=== PATIENT | male | born 1940 | race Hispanic/Latino ===

== ENCOUNTER 2018-06-25 13:43 | Inpatient (IN) | payer OTHER ==
[~2018-06-25] VITALS: Ht 172.7 cm; Wt 53.7 kg
--- OUTSIDE RECORDS SUMMARY | 2018-06-25 13:46 | XMS REPORT | Clinical Summary ---
Author Author [facility] Organization [facility] Address Unknown Phone Unavailable Care Team Providers Care Sas Developer Analyst Name Role Phone Ernesto Veliz MD PCP Allergies Comments Active Allergy Reactions Severity Noted Date Elevates creatinine Lisinopril Other Medium 09/29/2017 Medications End Date Status Medication Sig Dispensed Refills Start Date Active alendronate (FOSAMAX) 35 Take 1 tablet 12 tablet 3 mg tabletIndications: once a week 5 Osteopenia on empty stomach with 8 oz of water and remain upright for 30 minutes. Active tiotropium (SPIRIVA WITH Inhale 1 90 capsule 3 HANDIHALER) 18 mcg capsule by 7 inhalation mouth daily. capsuleIndications: Other emphysema Active albuterol 90 Inhale 2 20.1 g 6 mcg/actuation Puffs by 7 inhalerIndications: mouth every 4 Pulmonary emphysema, hours as unspecified emphysema needed for type, Other emphysema Wheezing. Active tamsulosin (FLOMAX) 0.4 Take 1 90 capsule 3 mg extended release capsule by 8 capsuleIndications: mouth daily. Benign prostatic hyperplasia with nocturia Active dexlansoprazole Take 1 60 capsule 1 (DEXILANT) 30 mg delayed capsule by 8 release mouth daily capsuleIndications: HH For acid (hiatus hernia) reflux. Active cetirizine (ZYRTEC) 10 mg Take 1 tablet 90 tablet 2 tabletIndications: by mouth 8 Seasonal allergic daily rhinitis, unspecified trigger Active benzonatate (TESSALON Take 2 75 capsule 0 PERLES) 100 mg capsules by 8 capsuleIndications: Cough mouth 3 times daily as needed for Cough. Active amLODIPine (NORVASC) 2.5 Take 1 tablet 90 tablet 3 mg tabletIndications: by mouth 8 HTN, goal below 140/90 daily For hypertension. Active fluticasone-salmeterol Inhale 1 Puff 60 Each 16 (ADVAIR DISKUS) 250-50 by mouth 2 9 mcg/dose diskus times daily. inhalerIndications: Other emphysema, Pulmonary emphysema, unspecified emphysema type 10/29/2017 Discontinued cetirizine (ZYRTEC) 10 mg Take 1 tablet 90 tablet 0 tabletIndications: by mouth 5 Allergic rhinitis, cause daily unspecified 09/29/2017 Discontinued mometasone (NASONEX) 50 2 Sprays by 17 g 2 mcg/actuation nasal each nostril 5 sprayIndications: route daily Allergic rhinitis, cause egyptian. unspecified 01/26/2018 Discontinued sildenafil (REVATIO) 20 Take 1 tablet 10 tablet 0 mg tabletIndications: by mouth 3 6 Pulmonary emphysema, times daily. unspecified emphysema type, Other male erectile dysfunction 09/29/2017 Discontinued omeprazole (PRILOSEC) 20 Take 1 180 capsule 0 mg delayed release capsule by 6 capsuleIndications: mouth 2 times Hiatal hernia with GERD daily. 08/13/2017 Discontinued lisinopril (PRINIVIL) 5 Take 1 tablet 90 tablet 1 mg tabletIndications: by mouth 7 HTN, goal below 140/90 daily For hypertension. 08/28/2017 Discontinued codeine-guaiFENesin Take 5 mL by 120 mL 0 (CHERATUSSIN AC) 10-100 mouth 3 times 7 mg/5 mL syrupIndications: daily as Bronchitis needed for Cough. 03/21/2018 Discontinued fluticasone-salmeterol Inhale 1 Puff 60 Each 16 (ADVAIR DISKUS) 250-50 by mouth 2 7 mcg/dose diskus times daily. inhalerIndications: Other emphysema, Pulmonary emphysema, unspecified emphysema type 06/27/2017 LORazepam (ATIVAN) 0.5 mg Take 1 tablet 1 tablet 0 tabletIndications: by mouth once 8 Anxiety as needed for up to 1 dose for Anxiety (30 minutes before MRI). 08/28/2017 Discontinued lisinopril (PRINIVIL) 5 Take 1 tablet 90 tablet 0 mg tabletIndications: by mouth 8 HTN, goal below 140/90 daily For hypertension. 09/29/2017 Discontinued lisinopril (PRINIVIL) 5 Take 1 tablet 90 tablet 0 mg tabletIndications: by mouth 8 HTN, goal below 140/90 daily For hypertension. 09/04/2017 LORazepam (ATIVAN) 0.5 mg Take 1 tablet 1 tablet 0 tabletIndications: by mouth once 8 Claustrophobia as needed for up to 1 dose for Anxiety (30 minutes before MRI). 01/26/2018 Discontinued polyethylene glycol Add lukewarm 4000 mL 0 (GOLYTELY) 236-22.74-6.74 drinking 8 -5.86 gram oral water to the solutionIndications: fill billie (4 Anemia, unspecified type liters) and shake. Drink as directed by your doctor.. 11/16/2017 azithromycin (ZITHROMAX) Take 1 tablet 14 tablet 0 500 mg tabletIndications: by mouth 8 Chronic obstructive daily for 14 pulmonary disease with days. acute exacerbation, Cough, Lung infection 03/17/2018 finasteride (PROSCAR) 5 Take 1 tablet 90 tablet 3 mg tabletIndications: by mouth 8 Benign prostatic daily for 90 hyperplasia with nocturia days. Active Problems Problem Noted Date History of colonoscopy with polypectomy- jan 2018- needs rpt jan 2023 01/26/2018 Swelling of both upper extremities 05/24/2017 Anxiety 04/10/2017 Iron deficiency 04/10/2017 Palpitation 04/10/2017 Health care maintenance 02/09/2017 Coronary artery calcification seen on CAT scan 01/09/2017 Lung nodule - CT Lung 02/04/2016 Osteopenia 02/04/2016 Smokers' cough 12/26/2015 CKD (chronic kidney disease) 12/26/2015 Benign prostatic hyperplasia with lower urinary tract symptoms 12/17/2015 Gas 12/17/2015 High potassium 01/16/2015 History of tuberculosis- treated [id number] 6 months 12/19/2014 Pulmonary emphysema 01/20/2014 Benign prostate hyperplasia 01/20/2014 HTN, goal below 140/90 01/20/2014 Need Screening for abdominal aortic aneurysm 01/20/2014 Ex-smoker Creatinine elevation Anemia Vitamin D insufficiency HH (hiatus hernia) Reflux gastritis Coronary atherosclerosis Hyponatremia Rectal polyp Internal hemorrhoids Diverticulosis Encounters Care Team Description Date Type Specialty 04/02/2018 Travel Von Olson MD Other emphysema; Pulmonary emphysema, unspecified emphysema type 03/21/2018 Refill Pulmonology Ernesto Veliz MD Osteopenia, unspecified location 02/02/2018 Hospital Radiology Encounter Ernesto Veliz MD Diverticulosis of large intestine without hemorrhage (Primary Dx); Internal hemorrhoids; History of colonoscopy with polypectomy- jan 2018- needs rpt jan 2023 ; Osteopenia, unspecified location 01/26/2018 Office Visit Family Practice Jonna Moyer MD Veliz, Lorena, RN Need for influenza vaccination (Primary Dx) 01/08/2018 Nurse Only Lizy Gonsalves, OD Glaucoma suspect, bilateral (Primary Dx) 12/29/2017 Office Visit Ophthalmology Valentine Anderson NP Follow-up 12/21/2017 Telephone Gastroenterology Kenia Villanueva MD Benign prostatic hyperplasia with nocturia (Primary Dx) 12/14/2017 Office Visit Urology Kimmy Stevenson MD Flores, Karina 12/03/2017 Nurse Only Ophthalmology Jonna Moyer MD Pulmonary emphysema, unspecified emphysema type (Primary Dx); Benign prostatic hyperplasia with lower urinary tract symptoms, symptom details unspecified; HTN, goal below 140/90; Vitamin D insufficiency; Reflux gastritis; Iron deficiency; Coronary artery calcification seen on CAT scan; Health care maintenance 11/04/2017 Office Visit Family Jonna Dozier MD Coronary artery calcification seen on CAT scan 11/04/2017 Orders Only Family Practice Jonna Moyer MD Masciangelo, Thomas N, MD Chronic obstructive pulmonary disease with acute exacerbation (Primary Dx); Seasonal allergic rhinitis, unspecified trigger; Cough; Lung infection 10/29/2017 Office Visit Pulmonology Stacey Presley, TRANG Utilization Management 10/28/2017 Telephone Lziy Gonsalves, OD Glaucoma suspect, bilateral (Primary Dx) 10/06/2017 Office Visit Ophthalmology Jonna Moyer MD Chronic kidney disease, unspecified CKD stage (Primary Dx); HTN, goal below 140/90; Benign prostatic hyperplasia without lower urinary tract symptoms; Anemia, unspecified type; Skin lesion; HH (hiatus hernia) 09/29/2017 Office Visit Family Practice Jonna Moyer MD Skin lesion 09/29/2017 Orders Only Family Practice Kenia Villanueva MD Benign prostatic hyperplasia with nocturia (Primary Dx) 09/16/2017 Office Visit Urology Uvaldo Carbajal MD Shelton, George Jr., MD BPH with obstruction/lower urinary tract symptoms (Primary Dx); HTN, goal below 140/90; Claustrophobia; Pulmonary emphysema, unspecified emphysema type 08/28/2017 Office Visit Family Practice Jonna Moyer MD HTN, goal below 140/90 08/13/2017 Refill Family Practice Lizy Gonsalves, OD 07/24/2017 Office Visit Ophthalmology after 06/24/2017 Immunizations Name Dates Previously Given Next Due Albuterol 0.83% 3ml 01/04/2015 Inhalant Herpes Zoster Vaccine In 06/28/2014 Clinic Influenza A (H1N1) Vac 01/18/2013 Injection Influenza Vaccine 12/17/2015, 12/19/2014, 01/20/2014 Influenza Vaccine, 01/09/2017 Seasonal, Injectable Influenza, 01/08/2018 Vaccine<FLUCELVAX>(Multi- Dose) PCV 13 (Pnuemococcal 01/09/2017 Conjugated 13 Valent) Pneumoccoccal 05/24/2014 Tdap Tetanus, diphtheria, 07/22/2012 acellular pertussis Vaccine Family History Medical History Relation Name Comments Hypertension Mother Relation Name Status Comments Father Mother Social History Date Tobacco Use Types Packs/Day Years Used Quit: 01/21/2012 Former Smoker Cigarettes 1 52 Smokeless Tobacco: Never Used Tobacco Cessation: Counseling Given: No Comments: hx 1 pack daily for 52yrs, quit 2012 Alcohol Use Drinks/Week oz/Week Comments Yes social - occasionall Sex Assigned at Date Recorded Not on file Industry Job Start Date Occupation Not on file Not on file Not on file Travel End Travel History Travel Start No recent travel history available. Last Filed Vital Signs Time Taken Vital Sign Reading 01/26/2018 7:55 AM [employer] Blood Pressure 131/65 01/26/2018 7:55 AM [employer]/CUSTODIAN Pulse 81 01/26/2018 7:55 AM [employer]/CUSTODIAN Temperature 36.6 C (97.9 F) 01/26/2018 7:55 AM [employer]/CUSTODIAN Respiratory Rate 18 - Oxygen Saturation - - Inhaled Oxygen - Concentration 01/26/2018 7:55 AM [employer]IVER/CUSTODIAN Weight 58.5 kg (129 lb) 01/26/2018 7:55 AM [employer]CHO[employer]/CUSTODIAN Height 175.3 cm (5' 9") 01/26/2018 7:55 AM S[employer]/CUSTODIAN Body Mass Index 19.05 Plan of Treatment Care Team Description Date Type Specialty Lizy Gonsalves, OD [address] [place] [address] vf results 07/12/2018 Office Visit Ophthalmology Health Maintenance Due Date Last Done Comments CORONARY ARTERY DISEASE 11/18/2018 11/18/2017, 05/21/2017, 12/27/2015, AGE 18 AND UP Additional history exists IMM Pneumococcal Age 67 Completed 05/24/2014 and Up Goals Goal Patient Associated Recent Progress Patient-Stat Author Goal Type Problems ed? 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 COLONOSCOPY-DIRECT Routine 01/18/2018 Anemia, unspecified type SCHEDULING URINE CULTURE Routine 11/18/2017 HTN, goal below 140/90 9:10 AM CDT Health care maintenance HEMOGLOBIN A1C Routine 11/18/2017 HTN, goal below 140/90 9:09 AM CDT Health care maintenance CBC/DIFF Routine 11/18/2017 HTN, goal below 140/90 9:09 AM CDT Iron deficiency Health care maintenance BASIC METABOLIC PANEL Routine 11/18/2017 HTN, goal below 140/90 9:09 AM CDT Health care maintenance LIPID PROFILE Routine 11/18/2017 HTN, goal below 140/90 9:09 AM CDT Health care maintenance LIVER PROFILE Routine 11/18/2017 HTN, goal below 140/90 9:09 AM CDT Health care maintenance TSH Routine 11/18/2017 HTN, goal below 140/90 9:09 AM CDT Health care maintenance UA CHEMISTRIES Routine 11/18/2017 HTN, goal below 140/90 9:09 AM CDT Health care maintenance PSA Routine 11/18/2017 Benign prostatic 9:09 AM CDT hyperplasia with lower urinary tract symptoms, symptom details unspecified HTN, goal below 140/90 Health care maintenance BMP POC Routine 09/29/2017 10:41 AM CDT BASIC METABOLIC PANEL Routine 09/03/2017 HTN, goal below 140/90 12:29 PM CDT CBC/DIFF Routine 09/03/2017 HTN, goal below 140/90 12:29 PM CDT after 06/24/2017 Results * BONE DENSITY (DUAL PHOTON) (02/02/2018 9:30 AM SCHOOL BUS DRIVER/CUSTODIAN) Impressions Performed At IMPRESSION: SMS Osteopenia of L1 and L2, left femoral neck, and left total hip. No significant interval change since 2014. Dictated By: Osmany Quach MD, 02/02/2018 9:46 AM I have reviewed the study and agree with the findings in this report. Signed By: Martinez Graham MD, 02/02/2018 12:30 PM Narrative Performed At EXAM: DEXA SMS INDICATION: Osteopenia for followup. COMPARISON: DEXA on 11/17/2014. TECHNIQUE: The patient underwent bone mineral densitometry using [employer] Discovery SL dual energy x-ray absorptiometry (DEXA).T-score is to compare the female peak bone mineral density (BMD). WHO definition of osteoporosis is T<-2.5 and osteopenia is T <-1.0. FINDINGS: Region..............BMD.......T score....%Change Spine L1-4....... 1.015 ....... -0.7 ....... 13.5% Left Femoral Neck..... 0.736 ........ -1.4 .....n/a Total Hip.......... 0.855 ....... -1.2 ....... -0.6% Please note the apparent increase in bone mineral density in the lumbar spine may be related to sclerotic degenerative changes which have increased in the interval. Procedure Note Interface, Rad/Mammog In - 02/02/2018 12:35 PM SCHOOL [employer]IVER/CUSTODIAN EXAM: DEXA INDICATION: Osteopenia for followup. COMPARISON: DEXA on 11/17/2014. TECHNIQUE: The patient underwent bone mineral densitometry using [employer] Discovery SL dual energy x-ray absorptiometry (DEXA). T-score is to compare the female peak bone mineral density (BMD). WHO definition of osteoporosis is T<-2.5 and osteopenia is T <-1.0. FINDINGS: Region..............BMD.......T score....%Change Spine L1-4....... 1.015 ....... -0.7 ....... 13.5% Left Femoral Neck..... 0.736 ........ -1.4 .....n/a Total Hip.......... 0.855 ....... -1.2 ....... -0.6% Please note the apparent increase in bone mineral density in the lumbar spine may be related to sclerotic degenerative changes which have increased in the interval. IMPRESSION IMPRESSION: Osteopenia of L1 and L2, left femoral neck, and left total hip. No significant interval change since 2014. Dictated By: Osmany Quach MD, 02/02/2018 9:46 AM I have reviewed the study and agree with the findings in this report. Signed By: Martinez Graham MD, 02/02/2018 12:30 PM Performing Organization Address City/State/Zipcode Phone Number SMS * COLONOSCOPY-DIRECT SCHEDULING (01/18/2018) Narrative Performed At Performing Organization Address City/State/Zipcode Phone Number ENDOSOFT * URINE CULTURE (11/18/2017 9:10 AM CDT) Spec Urine [facility] Description Order Comments None [facility] Culture No growth 2 days BT MICROBIOLOGY Report Status Final 11/20/2017 BT MICROBIOLOGY Specimen Urine - URINE Performing Organization Address [facility] Phone Number [facility] BT MICROBIOLOGY * HEMOGLOBIN A1C (11/18/2017 9:09 AM CDT) Hemoglobin A1c 5.7 4.3 - 6.1 % BT DIAGNOSTIC IMMUNOLOGY Est Average 116.9 mg/dL BT DIAGNOSTIC Gluc IMMUNOLOGY Specimen Blood Performing Organization Address [facility] Phone Number MISYS BT DIAGNOSTIC IMMUNOLOGY * TSH (11/18/2017 9:09 AM CDT) TSH 3.15 0.57 - 3.74 uIU/mL BT MAIN-STATION 1 Specimen Blood Performing Organization Address [facility] Phone Number MISYS BT MAIN-STATION 1 * PSA (11/18/2017 9:09 AM CDT) PSA 3.63 <4.1 ng/mL BT MAIN-STATION 1 Specimen Blood Performing Organization Address [facility] Phone Number MISYS BT MAIN-STATION 1 * UA CHEMISTRIES (11/18/2017 9:09 AM CDT) Color Yellow BT MAIN-STATION 3 Clarity Clear BT MAIN-STATION 3 Spec [place] 1.013 1.001 - 1.035 BT MAIN-STATION 3 pH 7.0 5 - 8 BT MAIN-STATION 3 Protein Negative NEG BT MAIN-STATION 3 Glucose Negative NEG BT MAIN-STATION 3 Ketone Negative NEG BT MAIN-STATION 3 Bilirubin Negative NEG BT MAIN-STATION 3 Nitrate Negative NEG BT MAIN-STATION 3 Urobilinogen <1.0 0.2 - 1.0 EU/dL BT MAIN-STATION 3 Leukocyte Negative NEG BT MAIN-STATION 3 Blood Negative NEG BT MAIN-STATION 3 Specimen Urine Performing Organization Address [facility] Phone Number MISYS BT MAIN-STATION 3 * LIVER PROFILE (11/18/2017 9:09 AM CDT) T Protein 6.8 6.0 - 8.3 g/dL BT MAIN-STATION 1 Albumin 4.5 4.2 - 5.5 g/dL BT MAIN-STATION 1 T Bilirubin 0.7 0.2 - 1.2 mg/dL BT MAIN-STATION 1 Alk Phos 58 34 - 104 U/L BT MAIN-STATION 1 AST 20 13 - 39 U/L BT MAIN-STATION 1 ALT 18 7 - 52 U/L BT MAIN-STATION 1 D Bilirubin 0.2 0.0 - 0.2 mg/dL BT MAIN-STATION 1 Specimen Blood Performing Organization Address [facility] Phone Number MISYS BT MAIN-STATION 1 * LIPID PROFILE (11/18/2017 9:09 AM CDT) Cholesterol 210 mg/dL BT MAIN-STATION Comment: 1 REFERENCE RANGE: Desirable: <200 mg/dL Borderline: 200-240 mg/dL High Risk: >240 mg/dL Triglyceride 69 <150 mg/dL BT MAIN-STATION Comment: 1 REFERENCE RANGE: Normal: <150 mg/dL Borderline High: 150-199 mg/dL High: 200-499 mg/dL Very High: >xr=508 mg/dL HDL 84 mg/dL BT MAIN-STATION Comment: 1 Increased CHD risk: <40 mg/dL Decreased CHD risk: >60 mg/dL LDL 112 mg/dL BT MAIN-STATION Comment: 1 REFERENCE RANGE: Optimal: <100 mg/dL Near Optimal: 100-129 mg/dL Borderline High: 130-159 mg/dL High: 160-189 mg/dL Very High: >ob=837 mg/dL Specimen Blood Performing Organization Address [facility] Phone Number MISYS BT MAIN-STATION 1 * CBC/DIFF (11/18/2017 9:09 AM CDT) Only the most recent of 2 results within the time period is included. WBC 4.0 (L) 4.5 - 12.0 K/uL BT MAIN-STATION 2 RBC 4.71 4.60 - 6.20 M/uL BT MAIN-STATION 2 Hemoglobin 15.0 14.0 - 18.0 g/dL BT MAIN-STATION 2 Hematocrit 44.7 40.0 - 54.0 % BT MAIN-STATION 2 MCV 95 (H) 82 - 92 fL BT MAIN-STATION 2 MCH 31.8 (H) 27.0 - 31.0 pg BT MAIN-STATION 2 MCHC 33.6 32.0 - 36.0 g/dL BT MAIN-STATION 2 RDW 46.3 (H) 35.1 - 43.9 fL BT MAIN-STATION 2 Platelet 197 150 - 400 K/uL BT MAIN-STATION 2 Mean Platelet 10.2 9.4 - 12.4 fL BT MAIN-STATION Volume 2 Percent NRBC 0.0 BT MAIN-STATION 2 Absolute NRBC 0.00 BT MAIN-STATION 2 Neutrophil 62.7 34.0 - 67.9 % BT MAIN-STATION 2 Lymphocyte 23.0 21.8 - 50.0 % BT MAIN-STATION 2 Monocyte 9.4 5.3 - 12.0 % BT MAIN-STATION 2 Eosinophil 3.5 0.8 - 5.0 % BT MAIN-STATION 2 Basophil 1.2 0.2 - 1.2 % BT MAIN-STATION 2 Pct Immat Gran 0.2 0.0 - 0.5 BT MAIN-STATION 2 Neutrophil, Abs 2.53 1.78 - 5.36 K/uL BT MAIN-STATION 2 Lymphocyte, Abs 0.93 (L) 1.32 - 3.57 K/uL BT MAIN-STATION 2 Monocyte, Abs 0.38 0.30 - 0.82 K/uL BT MAIN-STATION 2 Eosinophil, Abs 0.14 0.04 - 0.54 K/uL BT MAIN-STATION 2 Basophil, Abs 0.05 0.01 - 0.08 K/uL BT MAIN-STATION 2 Absol Immat 0.01 0.00 - 0.03 K/uL BT MAIN-STATION Gran 2 Specimen Blood Performing Organization Address [facility] Phone Number MISYS BT MAIN-STATION 2 * BASIC METABOLIC PANEL (11/18/2017 9:09 AM CDT) Only the most recent of 2 results within the time period is included. [facility] CO2 32 (H) 21 - 31 mmol/L BT MAIN-STATION 1 Chloride 97 (L) 98 - 107 mmol/L BT MAIN-STATION 1 Potassium 4.6 3.5 - 5.1 mmol/L BT MAIN-STATION 1 Sodium 136 136 - 145 mmol/L BT MAIN-STATION 1 Glucose 87 70 - 110 mg/dL BT MAIN-STATION 1 Urea Nitrogen 17 7 - 25 mg/dL BT MAIN-STATION 1 Creatinine 1.10 0.7 - 1.3 mg/dL BT MAIN-STATION 1 Anion Gap 7 BT MAIN-STATION 1 Calcium 9.9 8.6 - 10.3 mg/dL BT MAIN-STATION 1 GFR, Estimated >60 mL/min/1.73 m2 BT MAIN-STATION 1 GFR, Estim, >60 mL/min/1.73 m2 BT MAIN-STATION Afr-Am 1 Specimen Blood Performing Organization Address [facility] Phone Number [place] BT MAIN-STATION 1 * BMP POC (09/29/2017 10:41 AM CDT) TCO2 POC 28 21 - 32 mmol/L [facility] Chloride POC 97 (L) 98 - 107 mmol/L [facility] Potassium POC 4.1 3.50 - 5.10 mmol/L [facility] Sodium POC 134 (L) 136 - 145 mmol/L [facility] Glucose POC 77 74 - 106 mg/dL [facility] Urea Nitrogen 13 7 - 18 mg/dL [facility] POC Creatinine POC 0.9 0.6 - 1.3 mg/dL [facility] Ionized Calcium 1.27 1.15 - 1.29 mmol/L [facility] POC GFR, Estimated >60 mL/min/1.73 m2 [facility] GFR, Estim, >60 mL/min/1.73 m2 [facility] Afr-Am Performing Organization Address City/State/Zipcode Phone Number [facility] after 06/24/2017 Insurance Type Payer Benefit Subscriber ID Effective Phone Address Plan / Dates Group [facility] xxxxxxxxxxxx 2018-P [phone] [address] [facility] [place] [address] [facility] [place] [address] HC PLAN [facility] PLAN xxxxxxx 2018- [phone] [id number] [place] [address]
--- OUTSIDE RECORDS SUMMARY | 2018-06-25 13:48 | XMS REPORT ---
Author Author [facility] Address Unknown Phone Unavailable Care Team Providers Care Registered Account Administrator Name Role Phone Unavailable Unavailable Payers Payer Name Policy Type Policy Number Effective Date Expiration Date Problems This patient has no known problems. Allergies, Adverse Reactions, Alerts Allergy Name Allergy Type Status Severity Reaction(s) Onset Date Inactive Date Treating Clinician Comments No Known Allergies DA Active U 2018-05-28 00:00:00 No Known Allergies DA Active U 2017-12-30 00:00:00 Medications This patient has no known medications. Encounters Start Date/Time End Date/Time Encounter Type Admission Type Attending Clinicians Care Facility Care Department Encounter ID 2018-07-12 00:00:00 2018-07-12 00:00:00 Outpatient [facility] [id number] 2018-06-04 00:00:00 2018-06-04 00:00:00 Outpatient [facility] [id number] 2018-05-25 00:00:00 2018-05-25 00:00:00 Outpatient [facility] [id number] 2018-05-18 00:00:00 2018-05-18 00:00:00 Outpatient [facility] [id number] 2018-04-02 13:48:10 2018-04-02 13:48:10 Outpatient [facility] [id number] 2018-02-26 00:00:00 2018-02-26 00:00:00 Outpatient [facility] [id number] 2018-02-02 09:14:28 2018-02-02 09:14:28 Outpatient [facility] [id number] 2018-01-26 07:55:11 2018-01-26 07:55:11 Outpatient [facility] [id number] 2018-01-08 13:47:31 2018-01-08 13:47:31 Outpatient [facility] [id number] 2018-01-04 09:50:30 2018-01-04 09:50:30 Outpatient [facility] [id number] 2017-12-29 10:04:11 2017-12-29 10:04:11 Outpatient [facility] [id number] 2017-12-22 00:00:00 2017-12-22 00:00:00 Outpatient [facility] [id number] 2017-12-22 00:00:00 2017-12-22 00:00:00 Outpatient [facility] [id number] 2017-12-21 00:00:00 2017-12-21 00:00:00 Outpatient [facility] [id number] 2017-12-14 14:41:40 2017-12-14 14:41:40 Outpatient [facility] [id number] 2017-12-03 15:30:01 2017-12-03 15:30:01 Outpatient [facility] [id number] 2017-11-18 09:14:05 2017-11-18 09:14:05 Outpatient [facility] [id number] 2017-11-12 00:00:00 2017-11-12 00:00:00 Outpatient [facility] [id number] 2017-11-04 10:09:52 2017-11-04 10:09:52 Outpatient [facility] [id number] 2017-10-29 10:13:52 2017-10-29 10:13:52 Outpatient [facility] [id number] 2017-10-22 00:00:00 2017-10-22 00:00:00 Outpatient [facility] [id number] 2017-10-06 13:29:19 2017-10-06 13:29:19 Outpatient [facility] [id number] 2017-10-01 00:00:00 2017-10-01 00:00:00 Outpatient [facility] [id number] 2017-09-29 10:25:46 2017-09-29 10:25:46 Outpatient [facility] [id number] 2017-09-29 09:25:49 2017-09-29 09:25:49 Outpatient [facility] [id number] 2017-09-16 10:58:12 2017-09-16 10:58:12 Outpatient [facility] [id number] 2017-09-03 13:23:04 2017-09-03 13:23:04 Outpatient [facility] [id number] 2017-08-31 00:00:00 2017-08-31 00:00:00 Outpatient [facility] [id number] 2017-08-28 15:32:43 2017-08-28 15:32:43 Outpatient [facility] [id number] 2017-07-24 08:44:10 2017-07-24 08:44:10 Outpatient [facility] [id number] 2017-06-12 00:00:00 2017-06-12 00:00:00 Outpatient [facility] [id number] 2017-06-10 00:00:00 2017-06-10 00:00:00 Outpatient [facility] [id number] 2017-06-09 08:31:22 2017-06-09 08:31:22 Outpatient [facility] [id number] 2017-06-04 06:55:54 2017-06-04 06:55:54 Outpatient [facility] [id number] 2017-05-21 13:21:21 2017-05-21 13:21:21 Outpatient [facility] [id number] 2017-05-21 10:54:32 2017-05-21 10:54:32 Outpatient [facility] [id number] 2017-05-05 09:56:33 2017-05-05 09:56:33 Outpatient [facility] [id number] 2017-04-09 11:28:43 2017-04-09 11:28:43 Outpatient [facility] [id number] 2017-04-03 15:22:24 2017-04-03 15:22:24 Outpatient [facility] [id number] 10:09:34 2017 10:09:34 Outpatient [facility] [id number] 2017-03-05 10:23:48 2017-03-05 10:23:48 Outpatient [facility] [id number] 2017-02-17 14:10:42 2017-02-17 14:10:42 Outpatient [facility] [id number] 2017-02-17 14:00:51 2017-02-17 14:00:51 Outpatient [facility] [id number] 2017-02-17 12:40:00 2017-02-17 12:40:00 Outpatient [facility] [id number] 2017-02-12 14:19:52 2017-02-12 14:19:52 Outpatient [facility] [id number] 2017-02-10 10:02:22 2017-02-10 10:02:22 Outpatient [facility] [id number] 2017-02-09 13:46:52 2017-02-09 13:46:52 Outpatient [facility] [id number] 2017-01-20 13:54:37 2017-01-20 13:54:37 Outpatient [facility] [id number] 2017-01-16 17:09:31 2017-01-16 17:09:31 Outpatient [facility] [id number] 2017-01-12 00:00:00 2017-01-12 00:00:00 Outpatient [facility] [id number] 2017-01-09 15:54:58 2017-01-09 15:54:58 Outpatient [facility] [id number] 2017-01-09 14:37:09 2017-01-09 14:37:09 Outpatient [facility] [id number] 2017-01-06 00:00:00 2017-01-06 00:00:00 Outpatient [facility] [id number] 2017-01-06 00:00:00 2017-01-06 00:00:00 Outpatient [facility] [id number] 2016-12-08 12:49:01 2016-12-08 12:49:01 Outpatient [facility] [id number] Results Test Description Test Time Test Comments Text Results Atomic Results Result Comments BASIC METABOLIC PANEL 2018-06-04 12:06:00 SODIUM (test code=NA) 136 mmol/L 136-145 POTASSIUM (test code=K) 4.5 mmol/L 3.5-5.1 CHLORIDE (test code=CL) 96.0 mmol/L 98-107 CARBON DIOXIDE (test code=CO2) 36.0 mmol/L 21-32 ANION GAP (test code=GAP) 8.5 10-20 GLUCOSE (test code=GLU) 129 mg/dL 74-106 BLOOD UREA NITROGEN (test code=BUN) 35 mg/dL 7-18 GLOMERULAR FILTRATION RATE (test code=GFR) > 60 mL/min >=60 Estimated GFR by using Modified MDRD formula.Chronic kidney disease is defined as either kidney damageor GFR <60 mL/min/1.73 m2 for >3 months. CREATININE (test code=CREAT) 1.00 mg/dL 0.7-1.3 BUN/CREATININE RATIO (test code=BUN/CREA) 35.0 10-20 CALCIUM (test code=CA) 8.5 mg/dL 8.5-10.1 BASIC METABOLIC [id number] 12:02:00* Test Item Value Reference Range Comments SODIUM (test code=NA) 136 mmol/L 136-145 POTASSIUM (test code=K) 4.5 mmol/L 3.5-5.1 CHLORIDE (test code=CL) 96.0 mmol/L 98-107 CARBON DIOXIDE (test code=CO2) mmol/L 21-32 ANION GAP (test code=GAP) 10-20 GLUCOSE (test code=GLU) mg/dL 74-106 BLOOD UREA NITROGEN (test code=BUN) mg/dL 7-18 GLOMERULAR FILTRATION RATE (test code=GFR) mL/min >=60 CREATININE (test code=CREAT) mg/dL 0.7-1.3 BUN/CREATININE RATIO (test code=BUN/CREA) 10-20 CALCIUM (test code=CA) mg/dL 8.5-10.1 - XR ABDOMEN AP 1 [id number] 19:32:00 FAX: Zaria Dee MD [phone] [place]: St: [facility] FAX: Pelon Herrera MD [phone] Name: BRITT HUDSON [facility] : 1940 Age/S: 78/M [address] [facility] Unit #: [id number] Loc: V.2080 [place] [address] Phys: Zaria Dee MD Acct: [id number] Dis Date: Status: ADM IN PHONE #: [phone] Exam Date: 06/03/2018 183 FAX #: [phone] Reason: RULE OUT OBSTRUCTION EXAMS: CPT CODE: [id number] XR ABDOMEN AP 1 V 96736 HISTORY: RULE OUT OBSTRUCTION TECHNIQUE: AP abdomen x-ray COMPARISON: None FINDINGS: Interval improvement is seen in the gaseous distention of small and large bowel loops. No dilated bowel loops are seen. Large amount of st ool is again seen in the colon. No evidence of organomegaly or abn ormal calcifications. Degenerative changes are again seen in the s [place]. IMPRESSION: Nonobstructive bowel gas pattern. C onstipation. Interval improvement in the gaseous distention of small and large bowel loops. at 1932 Reported and signed by: Christa Fernandez M.D. CC: Zaria Dee MD; Pelon Lawrence MD Technologist: MOJGAN STOREY RT (R); ... Trnscrd Date/Time/By: 06/03/2018 (1931) : By: [email or web address] Orig Print D/T: S: 06/03/2018 (1935) PAGE 1 Signed Report - XR ABDOMEN AP 1 [id number] 11:32:00 FAX: Zaria Dee MD [phone] [place]: St: [facility] FAX: Y Pelon Lawrence MD [phone] Name: BRITT HUDSON [facility] : 1940 Age/S: 78/M [address] Unit #: [id number] Loc: [place] [address] Phys: Zaria Dee MD Acct: [id number] Dis Date: Status: ADM IN PHONE #: [phone] Exam Date: 06/03/2018 1057 FAX #: [phone] Reason: abd pain EXAMS: CPT CODE: [id number] XR ABDOMEN AP 1 V [id number] HISTORY: Abdominal pain. COMPARISON: CT scan from May 28, 2018. Single view abdomen. Moderate disten tion of the small bowel loops with mild distention of the large bowel loop s with large amount of stool suggesting ileus and constipation. No patholo gic calcifications. IMPRESSION: Moderate diffu se distention of the small bowel and mild distention of the large bowel suggestive of ileus. Constipation. at 1132 Reported and signed by: Fede Felix M.D. CC: Zaria Dee MD; Pelon Lawrence MD Technologist: BENITA MARROQUIN JR Trnscrd Date/Time/By: 06/03/2018 (1132) : By: [email or web address] Orig Print D/T: S: 06/03/2018 (5406) PAGE 1 Signed Report COMPREHENSIVE METABOLIC PANEL 2018-06-03 10:49:00* Test Item Value Reference Range Comments SODIUM (test code=NA) 132 mmol/L 136-145 POTASSIUM (test code=K) 3.4 mmol/L 3.5-5.1 CHLORIDE (test code=CL) 87.0 mmol/L 98-107 CARBON DIOXIDE (test code=CO2) 36.0 mmol/L 21-32 ANION GAP (test code=GAP) 12.4 10-20 GLUCOSE (test code=GLU) 224 mg/dL 74-106 BLOOD UREA NITROGEN (test code=BUN) 32 mg/dL 7-18 GLOMERULAR FILTRATION RATE (test code=GFR) > 60 mL/min >=60 Estimated GFR by using Modified MDRD formula.Chronic kidney disease is defined as either kidney damageor GFR <60 mL/min/1.73 m2 for >3 months. CREATININE (test code=CREAT) 1.10 mg/dL 0.7-1.3 BUN/CREATININE RATIO (test code=BUN/CREA) 29.1 10-20 TOTAL PROTEIN (test code=PROT) 6.7 gram/dL 6.4-8.2 ALBUMIN (test code=ALB) 3.7 g/dL 3.4-5.0 GLOBULIN (test code=GLOB) 3.0 gram/dL 2.7-4.2 ALBUMIN/GLOBULIN RATIO (test code=A/G) 1.2 0.75-1.50 CALCIUM (test code=CA) 9.0 mg/dL 8.5-10.1 BILIRUBIN TOTAL (test code=BILT) 1.10 mg/dL 0.0-1.0 SGOT/AST (test code=AST) 23 IUnit/L 15-37 SGPT/ALT (test code=ALT) 64 IUnit/L 12-78 ALKALINE PHOSPHATASE TOTAL (test code=ALKP) 90 IUnit/L 45-117 Note change in reference range due to change in reagent. COMPREHENSIVE METABOLIC [id number] 10:40:00* Test Item Value Reference Range Comments SODIUM (test code=NA) 132 mmol/L 136-145 POTASSIUM (test code=K) 3.4 mmol/L 3.5-5.1 CHLORIDE (test code=CL) 87.0 mmol/L 98-107 CARBON DIOXIDE (test code=CO2) mmol/L 21-32 ANION GAP (test code=GAP) 10-20 GLUCOSE (test code=GLU) mg/dL 74-106 BLOOD UREA NITROGEN (test code=BUN) mg/dL 7-18 GLOMERULAR FILTRATION RATE (test code=GFR) mL/min >=60 CREATININE (test code=CREAT) mg/dL 0.7-1.3 BUN/CREATININE RATIO (test code=BUN/CREA) 10-20 TOTAL PROTEIN (test code=PROT) gram/dL 6.4-8.2 ALBUMIN (test code=ALB) g/dL 3.4-5.0 GLOBULIN (test code=GLOB) gram/dL 2.7-4.2 ALBUMIN/GLOBULIN RATIO (test code=A/G) 0.75-1.50 CALCIUM (test code=CA) mg/dL 8.5-10.1 BILIRUBIN TOTAL (test code=BILT) mg/dL 0.0-1.0 SGOT/AST (test code=AST) IUnit/L 15-37 SGPT/ALT (test code=ALT) IUnit/L 12-78 ALKALINE PHOSPHATASE TOTAL (test code=ALKP) IUnit/L 45-117 CBC W/AUTO [id number] 10:00:00* Test Item Value Reference Range Comments WHITE BLOOD CELL (test code=WBC) 11.2 K/mm3 4.5-12.5 RED BLOOD CELL (test code=RBC) 3.72 mill/mm3 4.0-5.8 HEMOGLOBIN (test code=HGB) 11.0 gram/dL 13.0-17.5 HEMATOCRIT (test code=HCT) 34.8 % 42.0-52.0 MEAN CELL VOLUME (test code=MCV) 93.5 fL 80-98 MEAN CELL HGB (test code=MCH) 29.6 picogram 27.0-33.0 MEAN CELL HGB CONCETRATION (test code=MCHC) 31.6 gram/dL 33.0-36.0 RED CELL DISTRIBUTION WIDTH (test code=RDW) 13.2 % 11.6-16.2 RED CELL DISTRIBUTION WIDTH SD (test code=RDW-SD) 44.8 fL 37.0-51.0 PLATELET COUNT (test code=PLT) 217 K/mm3 150-450 MEAN PLATELET VOLUME (test code=MPV) 9.3 fL 6.7-11.0 NEUTROPHIL % (test code=NT%) 91.2 % 39.0-69.0 IMMATURE GRANULOCYTE % (test code=IG%) 0.5 % 0.0-5.0 LYMPHOCYTE % (test code=LY%) 3.8 % 25.0-55.0 MONOCYTE % (test code=MO%) 4.0 % 0.0-10.0 EOSINOPHIL % (test code=EO%) 0.4 % 0.0-5.0 BASOPHIL % (test code=BA%) 0.1 % 0.0-1.0 NUCLEATED RBC % (test code=NRBC%) 0.0 % 0-0 NEUTROPHIL # (test code=NT#) 10.20 K/mm3 1.8-7.7 IMMATURE GRANULOCYTE # (test code=IG#) 0.06 x10 3/uL 0-0.03 LYMPHOCYTE # (test code=LY#) 0.42 K/mm3 1.0-5.0 MONOCYTE # (test code=MO#) 0.45 K/mm3 0-0.8 EOSINOPHIL # (test code=EO#) 0.05 K/mm3 0.0-0.5 BASOPHIL # (test code=BA#) 0.01 K/mm3 0.0-0.2 NUCLEATED RBC # (test code=NRBC#) 0.00 K/mm3 0.0-0.1 MANUAL DIFF REQUIRED (test code=MDIFF) NO COMPREHENSIVE METABOLIC [id number] 07:40:00* Test Item Value Reference Range Comments SODIUM (test code=NA) 130 mmol/L 136-145 POTASSIUM (test code=K) 4.2 mmol/L 3.5-5.1 CHLORIDE (test code=CL) 95.0 mmol/L 98-107 CARBON DIOXIDE (test code=CO2) 31.0 mmol/L 21-32 ANION GAP (test code=GAP) 8.2 10-20 GLUCOSE (test code=GLU) 98 mg/dL 74-106 BLOOD UREA NITROGEN (test code=BUN) 29 mg/dL 7-18 GLOMERULAR FILTRATION RATE (test code=GFR) > 60 mL/min >=60 Estimated GFR by using Modified MDRD formula.Chronic kidney disease is defined as either kidney damageor GFR <60 mL/min/1.73 m2 for >3 months. CREATININE (test code=CREAT) 0.80 mg/dL 0.7-1.3 BUN/CREATININE RATIO (test code=BUN/CREA) 36.3 10-20 TOTAL PROTEIN (test code=PROT) 5.5 gram/dL 6.4-8.2 ALBUMIN (test code=ALB) 3.0 g/dL 3.4-5.0 GLOBULIN (test code=GLOB) 2.5 gram/dL 2.7-4.2 ALBUMIN/GLOBULIN RATIO (test code=A/G) 1.2 0.75-1.50 CALCIUM (test code=CA) 8.5 mg/dL 8.5-10.1 BILIRUBIN TOTAL (test code=BILT) 0.70 mg/dL 0.0-1.0 SGOT/AST (test code=AST) 20 IUnit/L 15-37 SGPT/ALT (test code=ALT) 57 IUnit/L 12-78 ALKALINE PHOSPHATASE TOTAL (test code=ALKP) 71 IUnit/L 45-117 Note change in reference range due to change in reagent. COMPREHENSIVE METABOLIC [id number] 07:32:00* Test Item Value Reference Range Comments SODIUM (test code=NA) 130 mmol/L 136-145 POTASSIUM (test code=K) 4.2 mmol/L 3.5-5.1 CHLORIDE (test code=CL) 95.0 mmol/L 98-107 CARBON DIOXIDE (test code=CO2) mmol/L 21-32 ANION GAP (test code=GAP) 10-20 GLUCOSE (test code=GLU) mg/dL 74-106 BLOOD UREA NITROGEN (test code=BUN) mg/dL 7-18 GLOMERULAR FILTRATION RATE (test code=GFR) mL/min >=60 CREATININE (test code=CREAT) mg/dL 0.7-1.3 BUN/CREATININE RATIO (test code=BUN/CREA) 10-20 TOTAL PROTEIN (test code=PROT) gram/dL 6.4-8.2 ALBUMIN (test code=ALB) g/dL 3.4-5.0 GLOBULIN (test code=GLOB) gram/dL 2.7-4.2 ALBUMIN/GLOBULIN RATIO (test code=A/G) 0.75-1.50 CALCIUM (test code=CA) mg/dL 8.5-10.1 BILIRUBIN TOTAL (test code=BILT) mg/dL 0.0-1.0 SGOT/AST (test code=AST) IUnit/L 15-37 SGPT/ALT (test code=ALT) IUnit/L 12-78 ALKALINE PHOSPHATASE TOTAL (test code=ALKP) IUnit/L 45-117 CBC W/AUTO [id number] 07:09:00* Test Item Value Reference Range Comments WHITE BLOOD CELL (test code=WBC) 8.5 K/mm3 4.5-12.5 RED BLOOD CELL (test code=RBC) 2.95 mill/mm3 4.0-5.8 HEMOGLOBIN (test code=HGB) 9.1 gram/dL 13.0-17.5 HEMATOCRIT (test code=HCT) 27.1 % 42.0-52.0 MEAN CELL VOLUME (test code=MCV) 91.9 fL 80-98 MEAN CELL HGB (test code=MCH) 30.8 picogram 27.0-33.0 MEAN CELL HGB CONCETRATION (test code=MCHC) 33.6 gram/dL 33.0-36.0 RED CELL DISTRIBUTION WIDTH (test code=RDW) 13.2 % 11.6-16.2 RED CELL DISTRIBUTION WIDTH SD (test code=RDW-SD) 43.5 fL 37.0-51.0 PLATELET COUNT (test code=PLT) 187 K/mm3 150-450 RESULT VERIFIED BY REPEAT ANALYSIS MEAN PLATELET VOLUME (test code=MPV) 9.2 fL 6.7-11.0 NEUTROPHIL % (test code=NT%) 88.3 % 39.0-69.0 IMMATURE GRANULOCYTE % (test code=IG%) 0.7 % 0.0-5.0 LYMPHOCYTE % (test code=LY%) 4.6 % 25.0-55.0 MONOCYTE % (test code=MO%) 6.3 % 0.0-10.0 EOSINOPHIL % (test code=EO%) 0.1 % 0.0-5.0 BASOPHIL % (test code=BA%) 0.0 % 0.0-1.0 NUCLEATED RBC % (test code=NRBC%) 0.0 % 0-0 NEUTROPHIL # (test code=NT#) 7.48 K/mm3 1.8-7.7 IMMATURE GRANULOCYTE # (test code=IG#) 0.06 x10 3/uL 0-0.03 LYMPHOCYTE # (test code=LY#) 0.39 K/mm3 1.0-5.0 MONOCYTE # (test code=MO#) 0.53 K/mm3 0-0.8 EOSINOPHIL # (test code=EO#) 0.01 K/mm3 0.0-0.5 BASOPHIL # (test code=BA#) 0.00 K/mm3 0.0-0.2 NUCLEATED RBC # (test code=NRBC#) 0.00 K/mm3 0.0-0.1 MANUAL DIFF REQUIRED (test code=MDIFF) NO [id number] 17:53:00* Test Item Value Reference Range Comments SODIUM (test code=NA) 128 mmol/L 136-145 COMPREHENSIVE METABOLIC [id number] 06:40:00* Test Item Value Reference Range Comments SODIUM (test code=NA) 128 mmol/L 136-145 POTASSIUM (test code=K) 4.1 mmol/L 3.5-5.1 CHLORIDE (test code=CL) 90.0 mmol/L 98-107 CARBON DIOXIDE (test code=CO2) 30.0 mmol/L 21-32 ANION GAP (test code=GAP) 12.1 10-20 GLUCOSE (test code=GLU) 166 mg/dL 74-106 BLOOD UREA NITROGEN (test code=BUN) 28 mg/dL 7-18 RESULT VERIFIED BY REPEAT ANALYSIS GLOMERULAR FILTRATION RATE (test code=GFR) > 60 mL/min >=60 Estimated GFR by using Modified MDRD formula.Chronic kidney disease is defined as either kidney damageor GFR <60 mL/min/1.73 m2 for >3 months. CREATININE (test code=CREAT) 0.90 mg/dL 0.7-1.3 BUN/CREATININE RATIO (test code=BUN/CREA) 31.1 10-20 TOTAL PROTEIN (test code=PROT) 5.9 gram/dL 6.4-8.2 ALBUMIN (test code=ALB) 3.1 g/dL 3.4-5.0 GLOBULIN (test code=GLOB) 2.8 gram/dL 2.7-4.2 ALBUMIN/GLOBULIN RATIO (test code=A/G) 1.1 0.75-1.50 CALCIUM (test code=CA) 8.6 mg/dL 8.5-10.1 BILIRUBIN TOTAL (test code=BILT) 0.90 mg/dL 0.0-1.0 SGOT/AST (test code=AST) 26 IUnit/L 15-37 SGPT/ALT (test code=ALT) 67 IUnit/L 12-78 ALKALINE PHOSPHATASE TOTAL (test code=ALKP) 81 IUnit/L 45-117 Note change in reference range due to change in reagent. COMPREHENSIVE METABOLIC [id number] 06:21:00* Test Item Value Reference Range Comments SODIUM (test code=NA) 128 mmol/L 136-145 POTASSIUM (test code=K) 4.1 mmol/L 3.5-5.1 CHLORIDE (test code=CL) 90.0 mmol/L 98-107 CARBON DIOXIDE (test code=CO2) mmol/L 21-32 ANION GAP (test code=GAP) 10-20 GLUCOSE (test code=GLU) mg/dL 74-106 BLOOD UREA NITROGEN (test code=BUN) mg/dL 7-18 GLOMERULAR FILTRATION RATE (test code=GFR) mL/min >=60 CREATININE (test code=CREAT) mg/dL 0.7-1.3 BUN/CREATININE RATIO (test code=BUN/CREA) 10-20 TOTAL PROTEIN (test code=PROT) gram/dL 6.4-8.2 ALBUMIN (test code=ALB) g/dL 3.4-5.0 GLOBULIN (test code=GLOB) gram/dL 2.7-4.2 ALBUMIN/GLOBULIN RATIO (test code=A/G) 0.75-1.50 CALCIUM (test code=CA) mg/dL 8.5-10.1 BILIRUBIN TOTAL (test code=BILT) mg/dL 0.0-1.0 SGOT/AST (test code=AST) IUnit/L 15-37 SGPT/ALT (test code=ALT) IUnit/L 12-78 ALKALINE PHOSPHATASE TOTAL (test code=ALKP) IUnit/L 45-117 CBC W/AUTO [id number] 05:52:00* Test Item Value Reference Range Comments WHITE BLOOD CELL (test code=WBC) 9.7 K/mm3 4.5-12.5 RED BLOOD CELL (test code=RBC) 3.26 mill/mm3 4.0-5.8 HEMOGLOBIN (test code=HGB) 9.7 gram/dL 13.0-17.5 HEMATOCRIT (test code=HCT) 30.5 % 42.0-52.0 MEAN CELL VOLUME (test code=MCV) 93.6 fL 80-98 RESULT VERIFIED BY REPEAT ANALYSIS MEAN CELL HGB (test code=MCH) 29.8 picogram 27.0-33.0 MEAN CELL HGB CONCETRATION (test code=MCHC) 31.8 gram/dL 33.0-36.0 RED CELL DISTRIBUTION WIDTH (test code=RDW) 13.1 % 11.6-16.2 RED CELL DISTRIBUTION WIDTH SD (test code=RDW-SD) 44.0 fL 37.0-51.0 PLATELET COUNT (test code=PLT) 240 K/mm3 150-450 MEAN PLATELET VOLUME (test code=MPV) 9.6 fL 6.7-11.0 NEUTROPHIL % (test code=NT%) 93.7 % 39.0-69.0 IMMATURE GRANULOCYTE % (test code=IG%) 0.5 % 0.0-5.0 LYMPHOCYTE % (test code=LY%) 1.7 % 25.0-55.0 MONOCYTE % (test code=MO%) 4.1 % 0.0-10.0 EOSINOPHIL % (test code=EO%) 0.0 % 0.0-5.0 BASOPHIL % (test code=BA%) 0.0 % 0.0-1.0 NUCLEATED RBC % (test code=NRBC%) 0.0 % 0-0 NEUTROPHIL # (test code=NT#) 9.11 K/mm3 1.8-7.7 IMMATURE GRANULOCYTE # (test code=IG#) 0.05 x10 3/uL 0-0.03 LYMPHOCYTE # (test code=LY#) 0.17 K/mm3 1.0-5.0 MONOCYTE # (test code=MO#) 0.40 K/mm3 0-0.8 EOSINOPHIL # (test code=EO#) 0.00 K/mm3 0.0-0.5 BASOPHIL # (test code=BA#) 0.00 K/mm3 0.0-0.2 NUCLEATED RBC # (test code=NRBC#) 0.00 K/mm3 0.0-0.1 - XR CHEST 1 [id number] 21:53:00 FAX: Zaria Dee MD [phone] [place]: [address]: ADM FAX: Pelon Herrera MD [phone] Name: BRITT HUDSNO [facility] : 1940 Age/S: 78/M [address] [facility] Unit #: [id number] Loc: [id number] [place] [address] Phys: Zaria Dee MD Acct: [id number] Dis Date: Status: ADM IN PHONE #: [phone] Exam Date: 05/31/20181958 FAX #: [phone] Reason: SOB EXAMS: CPT CODE: [id number] XR CHEST 1 V [id number] REASON FOR EXAM: SOB Exam Order Date: 05/31/2018 12:00 AM Ordering M.DReji: Zaria Dee MD PROCEDURE: - XR CHEST 1 V COMPARISON: AP chest x-ray May 28, 2018 FINDINGS: The lungs are hyperinflated which may represent an air-trapping process. There are also calcified granulomas in the left upper lung. No airspace consolidation or radiopaque mass. There is subsegmental atelectasis in the left lung base. There is no pleural effusion or pneumothorax. Pulmonary vascularity is within normal limits. C ardiomediastinal silhouette is normal in size for technique. The mediastin al contours are within normal limits. Musculoskeletal structures a re within normal limits. The visualized upper abdomen is within no rmal limits. IMPRESSION: No acute cardiopulmonary proces s or significant change from the previous chest x-ray. Elect ronically Signed by Humberto Ibrahim MD on 05/31/2018 at 2153 Reported and signed by: Humberto Ibrahim MD CC: Zaria Dee MD; Nicholas Lawrence MD Technologist: KOLTON FLOWERS; Ramone Morales De La R josefina, RT(R Trnscrd Date/Time/By: 05/31/2018 (2152) : By: [email or web address] Orig Print D/T: S: 05/31/2018 (2155) PAGE 1 Signed Report [id number] 15:39:00* Test Item Value Reference Range Comments SODIUM (test code=NA) 127 mmol/L 136-145 UR NA,[id number] 12:31:00* Test Item Value Reference Range Comments UR NA,RANDOM (test code=MISAEL) 29 mmol/L 20-110 UR CREATININE [id number] 12:31:00* Test Item Value Reference Range Comments UR CREATININE RANDOM (test code=CREATU) 38.0 mg/dL 30-125 UR OSMOLALITY [id number] 12:31:00* Test Item Value Reference Range Comments UR OSMOLALITY RANDOM (test code=OSMOU) 317.5 mOsm/kg 48-962 URINE K, [id number] 11:35:00* Test Item Value Reference Range Comments URINE K, RANDOM (test code=KU) 20.0 mmol/L 12-75 UR NA,[id number] 11:13:00* Test Item Value Reference Range Comments UR NA,RANDOM (test code=MISAEL) 29 mmol/L 20-110 UR CREATININE [id number] 11:13:00* Test Item Value Reference Range Comments UR CREATININE RANDOM (test code=CREATU) 38.0 mg/dL 30-125 UR OSMOLALITY [id number] 11:13:00* Test Item Value Reference Range Comments UR OSMOLALITY RANDOM (test code=OSMOU) mOsm/kg 48-962 COMPREHENSIVE METABOLIC [id number] 06:28:00* Test Item Value Reference Range Comments SODIUM (test code=NA) 129 mmol/L 136-145 POTASSIUM (test code=K) 4.3 mmol/L 3.5-5.1 CHLORIDE (test code=CL) 93.0 mmol/L 98-107 CARBON DIOXIDE (test code=CO2) 29.0 mmol/L 21-32 ANION GAP (test code=GAP) 11.3 10-20 GLUCOSE (test code=GLU) 128 mg/dL 74-106 BLOOD UREA NITROGEN (test code=BUN) 23 mg/dL 7-18 RESULT VERIFIED BY REPEAT ANALYSIS GLOMERULAR FILTRATION RATE (test code=GFR) > 60 mL/min >=60 Estimated GFR by using Modified MDRD formula.Chronic kidney disease is defined as either kidney damageor GFR <60 mL/min/1.73 m2 for >3 months. CREATININE (test code=CREAT) 0.80 mg/dL 0.7-1.3 BUN/CREATININE RATIO (test code=BUN/CREA) 28.8 10-20 TOTAL PROTEIN (test code=PROT) 5.9 gram/dL 6.4-8.2 ALBUMIN (test code=ALB) 3.3 g/dL 3.4-5.0 GLOBULIN (test code=GLOB) 2.6 gram/dL 2.7-4.2 ALBUMIN/GLOBULIN RATIO (test code=A/G) 1.3 0.75-1.50 CALCIUM (test code=CA) 8.9 mg/dL 8.5-10.1 BILIRUBIN TOTAL (test code=BILT) 0.80 mg/dL 0.0-1.0 SGOT/AST (test code=AST) 38 IUnit/L 15-37 SGPT/ALT (test code=ALT) 82 IUnit/L 12-78 ALKALINE PHOSPHATASE TOTAL (test code=ALKP) 84 IUnit/L 45-117 Note change in reference range due to change in reagent. CBC W/AUTO [id number] 06:10:00* Test Item Value Reference Range Comments WHITE BLOOD CELL (test code=WBC) 10.0 K/mm3 4.5-12.5 RED BLOOD CELL (test code=RBC) 3.22 mill/mm3 4.0-5.8 HEMOGLOBIN (test code=HGB) 9.8 gram/dL 13.0-17.5 HEMATOCRIT (test code=HCT) 28.7 % 42.0-52.0 MEAN CELL VOLUME (test code=MCV) 89.1 fL 80-98 MEAN CELL HGB (test code=MCH) 30.4 picogram 27.0-33.0 MEAN CELL HGB CONCETRATION (test code=MCHC) 34.1 gram/dL 33.0-36.0 RED CELL DISTRIBUTION WIDTH (test code=RDW) 12.7 % 11.6-16.2 RED CELL DISTRIBUTION WIDTH SD (test code=RDW-SD) 41.3 fL 37.0-51.0 PLATELET COUNT (test code=PLT) 256 K/mm3 150-450 MEAN PLATELET VOLUME (test code=MPV) 9.6 fL 6.7-11.0 NEUTROPHIL % (test code=NT%) 93.8 % 39.0-69.0 IMMATURE GRANULOCYTE % (test code=IG%) 0.7 % 0.0-5.0 LYMPHOCYTE % (test code=LY%) 1.4 % 25.0-55.0 MONOCYTE % (test code=MO%) 4.0 % 0.0-10.0 EOSINOPHIL % (test code=EO%) 0.0 % 0.0-5.0 BASOPHIL % (test code=BA%) 0.1 % 0.0-1.0 NUCLEATED RBC % (test code=NRBC%) 0.0 % 0-0 NEUTROPHIL # (test code=NT#) 9.36 K/mm3 1.8-7.7 IMMATURE GRANULOCYTE # (test code=IG#) 0.07 x10 3/uL 0-0.03 LYMPHOCYTE # (test code=LY#) 0.14 K/mm3 1.0-5.0 MONOCYTE # (test code=MO#) 0.40 K/mm3 0-0.8 EOSINOPHIL # (test code=EO#) 0.00 K/mm3 0.0-0.5 BASOPHIL # (test code=BA#) 0.01 K/mm3 0.0-0.2 NUCLEATED RBC # (test code=NRBC#) 0.00 K/mm3 0.0-0.1 [id number] 22:03:00* Test Item Value Reference Range Comments SODIUM (test code=NA) 126 mmol/L 136-145 [id number] 16:54:00* Test Item Value Reference Range Comments SODIUM (test code=NA) 126 mmol/L 136-145 [id number] 09:28:00* Test Item Value Reference Range Comments SODIUM (test code=NA) 125 mmol/L 136-145 COMPREHENSIVE METABOLIC [id number] 06:34:00* Test Item Value Reference Range Comments SODIUM (test code=NA) mmol/L 136-145 POTASSIUM (test code=K) mmol/L 3.5-5.1 CHLORIDE (test code=CL) mmol/L 98-107 CARBON DIOXIDE (test code=CO2) 29.0 mmol/L 21-32 ANION GAP (test code=GAP) 10-20 GLUCOSE (test code=GLU) 129 mg/dL 74-106 BLOOD UREA NITROGEN (test code=BUN) 19 mg/dL 7-18 GLOMERULAR FILTRATION RATE (test code=GFR) > 60 mL/min >=60 Estimated GFR by using Modified MDRD formula.Chronic kidney disease is defined as either kidney damageor GFR <60 mL/min/1.73 m2 for >3 months. CREATININE (test code=CREAT) 0.70 mg/dL 0.7-1.3 BUN/CREATININE RATIO (test code=BUN/CREA) 27.1 10-20 TOTAL PROTEIN (test code=PROT) 6.1 gram/dL 6.4-8.2 ALBUMIN (test code=ALB) 3.6 g/dL 3.4-5.0 GLOBULIN (test code=GLOB) 2.5 gram/dL 2.7-4.2 ALBUMIN/GLOBULIN RATIO (test code=A/G) 1.4 0.75-1.50 CALCIUM (test code=CA) 9.1 mg/dL 8.5-10.1 BILIRUBIN TOTAL (test code=BILT) 0.90 mg/dL 0.0-1.0 SGOT/AST (test code=AST) 52 IUnit/L 15-37 SGPT/ALT (test code=ALT) 99 IUnit/L 12-78 ALKALINE PHOSPHATASE TOTAL (test code=ALKP) 97 IUnit/L 45-117 Note change in reference range due to change in reagent. COMPREHENSIVE METABOLIC [id number] 06:34:00* Test Item Value Reference Range Comments SODIUM (test code=NA) 124 mmol/L 136-145 Results called to [id number] by V.LAB.AG1 05/30/18 0632Critical results verified and read back by Nurse? Y POTASSIUM (test code=K) 4.5 mmol/L 3.5-5.1 CHLORIDE (test code=CL) 87.0 mmol/L 98-107 CARBON DIOXIDE (test code=CO2) 29.0 mmol/L 21-32 ANION GAP (test code=GAP) 12.5 10-20 GLUCOSE (test code=GLU) 129 mg/dL 74-106 BLOOD UREA NITROGEN (test code=BUN) 19 mg/dL 7-18 GLOMERULAR FILTRATION RATE (test code=GFR) > 60 mL/min >=60 Estimated GFR by using Modified MDRD formula.Chronic kidney disease is defined as either kidney damageor GFR <60 mL/min/1.73 m2 for >3 months. CREATININE (test code=CREAT) 0.70 mg/dL 0.7-1.3 BUN/CREATININE RATIO (test code=BUN/CREA) 27.1 10-20 TOTAL PROTEIN (test code=PROT) 6.1 gram/dL 6.4-8.2 ALBUMIN (test code=ALB) 3.6 g/dL 3.4-5.0 GLOBULIN (test code=GLOB) 2.5 gram/dL 2.7-4.2 ALBUMIN/GLOBULIN RATIO (test code=A/G) 1.4 0.75-1.50 CALCIUM (test code=CA) 9.1 mg/dL 8.5-10.1 BILIRUBIN TOTAL (test code=BILT) 0.90 mg/dL 0.0-1.0 SGOT/AST (test code=AST) 52 IUnit/L 15-37 SGPT/ALT (test code=ALT) 99 IUnit/L 12-78 ALKALINE PHOSPHATASE TOTAL (test code=ALKP) 97 IUnit/L 45-117 Note change in reference range due to change in reagent. [id number] 03:29:00* Test Item Value Reference Range Comments SODIUM (test code=NA) 122 mmol/L 136-145 Results called to [id number] by V.LAB.AG1 05/30/18 0328Critical results verified and read back by Nurse? Y SPECIMEN COMMENTS: PLEASE DRAW FROM RIGHT ARM PER MDCOMMENTS TO BONE DRIER OPERATOR: PLEASE DRAW FROM RIGHT ARM PER [id number] 01:34:00* Test Item Value Reference Range Comments SODIUM (test code=NA) 111 mmol/L 136-145 Results called to [id number] by V.LAB.AG1 05/30/18 0134Critical results verified and read back by Nurse? Y CBC W/AUTO [id number] 01:04:00* Test Item Value Reference Range Comments WHITE BLOOD CELL (test code=WBC) 9.8 K/mm3 4.5-12.5 RED BLOOD CELL (test code=RBC) 2.79 mill/mm3 4.0-5.8 HEMOGLOBIN (test code=HGB) 8.4 gram/dL 13.0-17.5 HEMATOCRIT (test code=HCT) 25.1 % 42.0-52.0 MEAN CELL VOLUME (test code=MCV) 90.0 fL 80-98 MEAN CELL HGB (test code=MCH) 30.1 picogram 27.0-33.0 MEAN CELL HGB CONCETRATION (test code=MCHC) 33.5 gram/dL 33.0-36.0 RED CELL DISTRIBUTION WIDTH (test code=RDW) 12.2 % 11.6-16.2 RED CELL DISTRIBUTION WIDTH SD (test code=RDW-SD) 39.8 fL 37.0-51.0 PLATELET COUNT (test code=PLT) 233 K/mm3 150-450 MEAN PLATELET VOLUME (test code=MPV) 9.3 fL 6.7-11.0 NEUTROPHIL % (test code=NT%) 92.8 % 39.0-69.0 IMMATURE GRANULOCYTE % (test code=IG%) 0.7 % 0.0-5.0 LYMPHOCYTE % (test code=LY%) 1.1 % 25.0-55.0 MONOCYTE % (test code=MO%) 5.3 % 0.0-10.0 EOSINOPHIL % (test code=EO%) 0.0 % 0.0-5.0 BASOPHIL % (test code=BA%) 0.1 % 0.0-1.0 NUCLEATED RBC % (test code=NRBC%) 0.0 % 0-0 NEUTROPHIL # (test code=NT#) 9.06 K/mm3 1.8-7.7 IMMATURE GRANULOCYTE # (test code=IG#) 0.07 x10 3/uL 0-0.03 LYMPHOCYTE # (test code=LY#) 0.11 K/mm3 1.0-5.0 MONOCYTE # (test code=MO#) 0.52 K/mm3 0-0.8 EOSINOPHIL # (test code=EO#) 0.00 K/mm3 0.0-0.5 BASOPHIL # (test code=BA#) 0.01 K/mm3 0.0-0.2 NUCLEATED RBC # (test code=NRBC#) 0.00 K/mm3 0.0-0.1 [id number] 22:07:00* Test Item Value Reference Range Comments SODIUM (test code=NA) 120 mmol/L 136-145 Results called to [id number] by V.LAB.LT 05/29/18 2207Critical results verified and read back by Nurse? Y [id number] 17:19:00* Test Item Value Reference Range Comments SODIUM (test code=NA) 116 mmol/L 136-145 Results called to [id number] by V.LAB.LT 05/29/18 1719Critical results verified and read back by Nurse? Y [id number] 14:22:00* Test Item Value Reference Range Comments SODIUM (test code=NA) 117 mmol/L 136-145 Results called to [id number] by V.LAB.B 05/29/18 1418Critical results verified and read back by Nurse? Y BASIC METABOLIC [id number] 14:09:00* Test Item Value Reference Range Comments SODIUM (test code=NA) 117 mmol/L 136-145 Results called to [id number] by V.LAB.LDB 05/29/18 1407Critical results verified and read back by Nurse? Y POTASSIUM (test code=K) 4.4 mmol/L 3.5-5.1 CHLORIDE (test code=CL) 82.0 mmol/L 98-107 CARBON DIOXIDE (test code=CO2) 26.0 mmol/L 21-32 ANION GAP (test code=GAP) 13.4 10-20 GLUCOSE (test code=GLU) 132 mg/dL 74-106 BLOOD UREA NITROGEN (test code=BUN) 22 mg/dL 7-18 GLOMERULAR FILTRATION RATE (test code=GFR) > 60 mL/min >=60 Estimated GFR by using Modified MDRD formula.Chronic kidney disease is defined as either kidney damageor GFR <60 mL/min/1.73 m2 for >3 months. CREATININE (test code=CREAT) 1.00 mg/dL 0.7-1.3 BUN/CREATININE RATIO (test code=BUN/CREA) 22.0 10-20 CALCIUM (test code=CA) 8.3 mg/dL 8.5-10.1 [id number] 03:32:00* Test Item Value Reference Range Comments SODIUM (test code=NA) 118 mmol/L 136-145 Results called to [id number] by V.LAB.WALTER 05/29/18 0331Critical results verified and read back by Nurse? Y BASIC METABOLIC [id number] 03:24:00* Test Item Value Reference Range Comments SODIUM (test code=NA) 118 mmol/L 136-145 Results called to [id number] by V.LAB.WALTER 05/29/18 0322Critical results verified and read back by Nurse? Y POTASSIUM (test code=K) 5.1 mmol/L 3.5-5.1 CHLORIDE (test code=CL) 82.0 mmol/L 98-107 CARBON DIOXIDE (test code=CO2) 25.0 mmol/L 21-32 ANION GAP (test code=GAP) 16.1 10-20 GLUCOSE (test code=GLU) 132 mg/dL 74-106 BLOOD UREA NITROGEN (test code=BUN) 21 mg/dL 7-18 GLOMERULAR FILTRATION RATE (test code=GFR) > 60 mL/min >=60 Estimated GFR by using Modified MDRD formula.Chronic kidney disease is defined as either kidney damageor GFR <60 mL/min/1.73 m2 for >3 months. CREATININE (test code=CREAT) 0.80 mg/dL 0.7-1.3 BUN/CREATININE RATIO (test code=BUN/CREA) 26.3 10-20 CALCIUM (test code=CA) 8.4 mg/dL 8.5-10.1 CBC W/AUTO [id number] 02:49:00* Test Item Value Reference Range Comments WHITE BLOOD CELL (test code=WBC) 11.4 K/mm3 4.5-12.5 RED BLOOD CELL (test code=RBC) 3.10 mill/mm3 4.0-5.8 HEMOGLOBIN (test code=HGB) 9.2 gram/dL 13.0-17.5 HEMATOCRIT (test code=HCT) 27.4 % 42.0-52.0 MEAN CELL VOLUME (test code=MCV) 88.4 fL 80-98 MEAN CELL HGB (test code=MCH) 29.7 picogram 27.0-33.0 MEAN CELL HGB CONCETRATION (test code=MCHC) 33.6 gram/dL 33.0-36.0 RED CELL DISTRIBUTION WIDTH (test code=RDW) 11.9 % 11.6-16.2 RED CELL DISTRIBUTION WIDTH SD (test code=RDW-SD) 38.5 fL 37.0-51.0 PLATELET COUNT (test code=PLT) 242 K/mm3 150-450 MEAN PLATELET VOLUME (test code=MPV) 9.3 fL 6.7-11.0 NEUTROPHIL % (test code=NT%) 94.4 % 39.0-69.0 IMMATURE GRANULOCYTE % (test code=IG%) 0.9 % 0.0-5.0 LYMPHOCYTE % (test code=LY%) 1.6 % 25.0-55.0 MONOCYTE % (test code=MO%) 3.1 % 0.0-10.0 EOSINOPHIL % (test code=EO%) 0.0 % 0.0-5.0 BASOPHIL % (test code=BA%) 0.0 % 0.0-1.0 NUCLEATED RBC % (test code=NRBC%) 0.0 % 0-0 NEUTROPHIL # (test code=NT#) 10.73 K/mm3 1.8-7.7 IMMATURE GRANULOCYTE # (test code=IG#) 0.10 x10 3/uL 0-0.03 LYMPHOCYTE # (test code=LY#) 0.18 K/mm3 1.0-5.0 MONOCYTE # (test code=MO#) 0.35 K/mm3 0-0.8 EOSINOPHIL # (test code=EO#) 0.00 K/mm3 0.0-0.5 BASOPHIL # (test code=BA#) 0.00 K/mm3 0.0-0.2 NUCLEATED RBC # (test code=NRBC#) 0.00 K/mm3 0.0-0.1 [id number] 01:58:00* Test Item Value Reference Range Comments SODIUM (test code=NA) 116 mmol/L 136-145 Results called to [id number] by WILFRID 05/29/18 0158Critical results verified and read back by Nurse? Y BASIC METABOLIC [id number] 21:58:00* Test Item Value Reference Range Comments SODIUM (test code=NA) 116 mmol/L 136-145 POTASSIUM (test code=K) 4.7 mmol/L 3.5-5.1 CHLORIDE (test code=CL) 82.0 mmol/L 98-107 CARBON DIOXIDE (test code=CO2) 22.0 mmol/L 21-32 ANION GAP (test code=GAP) 16.7 10-20 GLUCOSE (test code=GLU) 165 mg/dL 74-106 BLOOD UREA NITROGEN (test code=BUN) 23 mg/dL 7-18 GLOMERULAR FILTRATION RATE (test code=GFR) > 60 mL/min >=60 Estimated GFR by using Modified MDRD formula.Chronic kidney disease is defined as either kidney damageor GFR <60 mL/min/1.73 m2 for >3 months. CREATININE (test code=CREAT) 1.10 mg/dL 0.7-1.3 BUN/CREATININE RATIO (test code=BUN/CREA) 20.9 10-20 CALCIUM (test code=CA) 8.1 mg/dL 8.5-10.1 UR NA,[id number] 19:34:00* Test Item Value Reference Range Comments UR NA,RANDOM (test code=MISAEL) 16 mmol/L 20-110 Urine Source? Clean CatchURINE K, [id number] 19:34:00* Test Item Value Reference Range Comments URINE K, RANDOM (test code=KU) 72.0 mmol/L 12-75 Urine Source? Clean CatchUR CREATININE [id number] 19:34:00* Test Item Value Reference Range Comments UR CREATININE RANDOM (test code=CREATU) 70.0 mg/dL 30-125 Urine Source? Clean CatchUR OSMOLALITY [id number] 19:34:00* Test Item Value Reference Range Comments UR OSMOLALITY RANDOM (test code=OSMOU) 488 mOsm/kg 48-962 Urine Source? Clean CatchUR NA,[id number] 19:31:00* Test Item Value Reference Range Comments UR NA,RANDOM (test code=MISAEL) mmol/L 20-110 Urine Source? Clean CatchURINE K, [id number] 19:31:00* Test Item Value Reference Range Comments URINE K, RANDOM (test code=KU) mmol/L 12-75 Urine Source? Clean CatchUR CREATININE [id number] 19:31:00* Test Item Value Reference Range Comments UR CREATININE RANDOM (test code=CREATU) mg/dL 30-125 Urine Source? Clean CatchUR OSMOLALITY [id number] 19:31:00* Test Item Value Reference Range Comments UR OSMOLALITY RANDOM (test code=OSMOU) 488 mOsm/kg 48-962 Urine Source? Clean CatchOSMOLALITY [id number] 19:09:00* Test Item Value Reference Range Comments OSMOLALITY SERUM (test code=OSMO) 248 mOsm/kg 275-295 [id number] 17:48:00* Test Item Value Reference Range Comments TROPONIN-I (test code=TROPI) <0.015 ng/mL 0-0.045 COMMENTS TO BONE DRIER OPERATOR: COLLECT 3 HOURS AFTER PREVIOUS SAMPLE- US ABDOMEN [id number] 17:30:00 Name: BRITT HUDSON [facility] : 1940 Age/S: 78 / M [address] [facility] Unit #: [id number] Loc: [place] [address] Phys: Cheryl Sun MD Acct: [id number] Dis Date: Status: ADM IN PHONE #: [phone] Exam Date: 05/28/2018 1620 FAX #: [phone] Reason: elevated LFTs EXAMS: CPT CODE: [id number] US ABDOMEN LTD 10540 EXAM: Ultrasound abdomen, limited; INFORMATION: Elevated LFTs; FINDINGS: The liver is of normal size and shape; no focal lesions. The gallbladder is of normal diameter and wall thickness; no stones; no dilatation of intra or extrahepatic bile ducts. The pancreas is obscured by bowel gas. The right kidney is of normal size and shape; no hydronephrosis, stones and no parenchymal abnormalities. The right kidney measures 9.6 x 4.7 x 4.4 cm. Imaged portions of the IVC and abdominal aorta are unremarkable. IMPRESSION: No evidence of gallstones or other abnormalities. at 1730 Reported and signed by: Tomas Cristobal M.D. CC: Zaria Dee MD; Pelon Lawrence MD; Cheryl Sun MD Technologist: Michelle Bryan RDMS [facility] Date/Time: 05/28/2018 (1730) DreGRW Orig Print D/T: S: 05/28/2018 (3544) Probe: PAGE 1 Signed Report [id number] 16:45:00* Test Item Value Reference Range Comments TROPONIN-I (test code=TROPI) 0.019 ng/mL 0-0.045 COMMENTS TO BONE DRIER OPERATOR: COLLECT 3 HOURS AFTER PREVIOUS SAMPLEURINALYSIS [id number] 14:05:00* Test Item Value Reference Range Comments UA COLOR (test code=COLU) LIGHT YELLOW YELLOW UA APPEARANCE (test code=APPU) CLEAR CLEAR UA GLUCOSE DIPSTICK (test code=DGLUU) NEGATIVE mg/dL NEGATIVE UA BILIRUBIN DIPSTICK (test code=BILU) NEGATIVE mg/dL NEGATIVE UA KETONE DIPSTICK (test code=KETU) 20 (Small) mg/dL NEGATIVE UA SPECIFIC GRAVITY (test code=SGU) 1.018 1.001-1.035 UA BLOOD DIPSTICK (test code=ABDULAZIZ) Negative NEGATIVE UA PH DIPSTICK (test code=CHRIST) 7.0 5.0-8.0 UA PROTEIN DIPSTICK (test code=PROU) Negative mg/dL NEGATIVE UA UROBILINIOGEN DIPSTICK (test code=URO) 1 mg/dL (1+) mg/dL 0.0-0.2 UA NITRITE DIPSTICK (test code=JOSE) NEGATIVE NEGATIVE UA LEUKOCYTE ESTERASE W REFLEX (test code=LEUUR) NEGATIVE NEGATIVE UA WBC (test code=WBCU) 0-5 #/HPF 0-5 UA RBC (test code=RBCU) 0-2 #/HPF 0-5 UA EPITHELIAL CELLS (test code=EPIU) FEW per HPF FEW UA MUCUS (test code=MUCU) FEW #/LPF FEW - CT ABD PELVIS [id number] 12:24:00 Name: BRITT HUDSON [facility] : 1940 Age/S: 78 / M [address] [facility] Unit #: [id number] Loc: [place] [address] Phys: Cheryl Sun MD Acct: [id number] Dis Date: Status: ADM IN PHONE #: [phone] Exam Date: 05/28/2018 1157 FAX #: [phone] Reason: elevated LFTS EXAMS: CPT CODE: [id number] CT ABD PELVIS W/CONT 64216 HISTORY: Elevated liver function tests. COMPARISON: None available. CT abdomen and pelvis with IV contrast: 100 mL of Isovue-370. Automated exposure control. CT ABDOMEN: The lung bases demonstrating severe COPD with scarring especially in the left base with dependent changes as well. Hepatic parenchyma enhanced homogeneously. Moderately distended gallbladder. No radiopaque stones. The liver is not enlarged measuring 12 cm in length. Unremarkable spleen. The stomach distended incompletely however severe circumferential wall thickening of the stomach which is greater than normal for underdistention with nondependent wall measuring up to 1.6 cm. Correlate for gastritis. Pancreas is enhancing homogeneously. Unremarkable adrenals. Kidneys are free from hydroureteronephrosis. Homogeneous enhancement. Bilateral excretion is noted. No pathologic adenopathy. Atherosclerotic change of the abdominal and pelvic vasculature remains well opacified. No bowel obstruction. Severe constipation. CT PELVIS: Appendix is normal. Pelvic bowel loops are unobstructed. Well-dist ended urinary bladder. The prostate is enlarged at 5.2 cm in width. Bilateral inguinal hernia containing loop of right colon on the right and sigmoid colon and small bowel on the left side without incarceration and without bowel obstruction. No free fluid or free air or abscess. No pelvic pathologic adenopathy. Subcutaneous tissues of strain mild edema in the pelvis. No lytic or blastic lesions are noted within the bony skeleton. DJD. PAGE 1 Signed Report (CONTINUED) Name: BRITT HUDSON [facility] : 1940 Age/S: 78 / M [address] Unit #: [id number] Loc: [place] [address] Phys: Cheryl Sun MD Acct: [id number] Dis Date: Status: ADM IN PHONE #: [phone] Exam Date: 05/28/2018 1157 FAX #: [phone] Reason: elevated LFTS EXAMS: CPT CODE: [id number] CT ABD PELVIS W/CONT 47626 <Continued> IMPRESSION: Normal appendix without bowel ob struction or colitis or diverticulitis or enteritis. Constipation. Bilat eral bowel containing inguinal hernias as described without incarceratio n and without bowel obstruction. Circumferential wall thickening of the stomach which is greater than normal for underdistention. Correlate for gastritis. Nondependent wall measured up to 1.6 cm. No hydroureteronephrosis. Markedly distended urinary bladder. No free flui d, free air or abscess. The liver is not enlarged at 12 cm. No abnormal enhancing masses or lesions. Moderately distended gallbladder is without radiopaque stones. at 1224 Reported and signed b y: Fede Felix M.D. CC: Pelon Lawrence MD; Tamara Sun MD Technologist:Tho Bro RT(R),(MR),(CT) CTDI: DLP: Trnscb Date/Time: 05/28/2018 (1224) t.SDR.TH4 Orig Print D/T: S: 05/28/2018 (7927) CTDI: DLP: PAGE 2 Signed Report B-TYPE NATRIURETIC [id number] 10:00:00* Test Item Value Reference Range Comments B-TYPE NATRIURETIC PEPTIDE (test code=BNP) 183 pgram/mL 0-100 B-TYPE NATRIURETIC [id number] 10:00:00* Test Item Value Reference Range Comments B-TYPE NATRIURETIC PEPTIDE (test code=BNP) 183 pg/mL 0-100 Previously reported result: 183 pgram/mLEdited by: DONELL on 05/28/18:1000 HEPATIC FUNCTION [id number] 09:16:00* Test Item Value Reference Range Comments TOTAL PROTEIN (test code=PROT) 7.0 gram/dL 6.4-8.2 ALBUMIN (test code=ALB) 3.9 g/dL 3.4-5.0 GLOBULIN (test code=GLOB) 3.1 gram/dL 2.7-4.2 ALBUMIN/GLOBULIN RATIO (test code=A/G) 1.3 0.75-1.50 BILIRUBIN TOTAL (test code=BILT) 1.20 mg/dL 0.0-1.0 BILIRUBIN DIRECT (test code=BILD) 0.35 mg/dL 0.0-0.20 SGOT/AST (test code=AST) 72 IUnit/L 15-37 SGPT/ALT (test code=ALT) 134 IUnit/L 12-78 ALKALINE PHOSPHATASE TOTAL (test code=ALKP) 129 IUnit/L 45-117 Note change in reference range due to change in reagent. [id number] 09:16:00* Test Item Value Reference Range Comments LIPASE (test code=LIP) 284 U/L 73.0-393.0 BASIC METABOLIC [id number] 09:08:00* Test Item Value Reference Range Comments SODIUM (test code=NA) 114 mmol/L 136-145 Results called to [id number] by DONELL 05/28/18 0906Critical results verified and read back by Nurse? Y POTASSIUM (test code=K) 5.4 mmol/L 3.5-5.1 CHLORIDE (test code=CL) 79.0 mmol/L 98-107 CARBON DIOXIDE (test code=CO2) 27.0 mmol/L 21-32 ANION GAP (test code=GAP) 13.4 10-20 GLUCOSE (test code=GLU) 97 mg/dL 74-106 BLOOD UREA NITROGEN (test code=BUN) 22 mg/dL 7-18 GLOMERULAR FILTRATION RATE (test code=GFR) > 60 mL/min >=60 Estimated GFR by using Modified MDRD formula.Chronic kidney disease is defined as either kidney damageor GFR <60 mL/min/1.73 m2 for >3 months. CREATININE (test code=CREAT) 0.70 mg/dL 0.7-1.3 BUN/CREATININE RATIO (test code=BUN/CREA) 31.4 10-20 CALCIUM (test code=CA) 9.0 mg/dL 8.5-10.1 [id number] 09:08:00* Test Item Value Reference Range Comments TROPONIN-I (test code=TROPI) <0.015 ng/mL 0-0.045 - XR CHEST 1 [id number] 08:56:00 FAX: Pelon Herrera MD [phone] [place]: St: REG FAX: DAMIR KWOK DIRECTOR OF SUSTAINABILITY Name: BRITT HUDSON [facility] : 1940 Age/S: 78/M [address] [facility] Unit #: [id number] Loc: [place] [address] Phys: DAMIR KWOK NP Acct: [id number] Dis Date: Status: REG ER PHONE #: [phone] Exam Date: 05/28/2018 0847 FAX #: [phone] Reason: Shortness of Breath EXAMS: CPT CODE: [id number] XR CHEST 1 V 32775 HISTORY: Shortness of breath. COMPARISON: May 19, 2018. No acute infiltrates, effusion or congestion is noted. Hyperinflation and COPD. Calcified granuloma in the left upper lobe. The cardiac and mediastinal silhouette are within normal limits. IMPRESSION: No acute infiltrates, effusion or congestion. Severe COPD with lower lobe predominance is noted again. at 0856 Reported and signed by: Fede Felix M.D. CC: Pelon Lawrence MD; DAMIR KWOK NP Technologist: LA NENA DHILLON [facility](R[facility] Date/Time/By: 05/28/2018 (0856) : By: [email or web address] Orig Print D/T: S: 05/28/2018 (7793) PAGE 1 Signed Report CBC W/O [id number] 08:54:00* Test Item Value Reference Range Comments WHITE BLOOD CELL (test code=WBC) 11.9 K/mm3 4.5-12.5 RED BLOOD CELL (test code=RBC) 3.56 mill/mm3 4.0-5.8 HEMOGLOBIN (test code=HGB) 10.7 gram/dL 13.0-17.5 HEMATOCRIT (test code=HCT) 31.5 % 42.0-52.0 MEAN CELL VOLUME (test code=MCV) 88.5 fL 80-98 MEAN CELL HGB (test code=MCH) 30.1 picogram 27.0-33.0 MEAN CELL HGB CONCETRATION (test code=MCHC) 34.0 gram/dL 33.0-36.0 RED CELL DISTRIBUTION WIDTH (test code=RDW) 11.9 % 11.6-16.2 PLATELET COUNT (test code=PLT) 276 K/mm3 150-450 MEAN PLATELET VOLUME (test code=MPV) 9.3 fL 6.7-11.0 TROPONIN I [id number] 08:44:00* Test Item Value Reference Range Comments TROPONIN I RAPID (test code=TROPIRAP) 0.00 ng/mL <0.08 Please Note New Reference Range 0.00-0.079 ng/mL - Negative>or=0.08 ng/mL - Positive The use of serial sampling and testing protocol is arecommended practice.An elevated troponin level alone is often not sufficient fordiagnosis of myocardial infarction. Troponin results obtained by different assays may vary.Evaluation of the extent of myocardial damage based onincrease of troponin would be valid only if similarmethodology is used. BASIC METABOLIC [id number] 09:38:00* Test Item Value Reference Range Comments SODIUM (test code=NA) 130 mmol/L 136-145 POTASSIUM (test code=K) 4.4 mmol/L 3.5-5.1 CHLORIDE (test code=CL) 93.0 mmol/L 98-107 CARBON DIOXIDE (test code=CO2) 33.0 mmol/L 21-32 ANION GAP (test code=GAP) 8.4 10-20 GLUCOSE (test code=GLU) 92 mg/dL 74-106 BLOOD UREA NITROGEN (test code=BUN) 22 mg/dL 7-18 GLOMERULAR FILTRATION RATE (test code=GFR) > 60 mL/min >=60 Estimated GFR by using Modified MDRD formula.Chronic kidney disease is defined as either kidney damageor GFR <60 mL/min/1.73 m2 for >3 months. CREATININE (test code=CREAT) 0.80 mg/dL 0.7-1.3 BUN/CREATININE RATIO (test code=BUN/CREA) 29.1 10-20 CALCIUM (test code=CA) 8.1 mg/dL 8.5-10.1 BASIC METABOLIC [id number] 05:51:00* Test Item Value Reference Range Comments SODIUM (test code=NA) 133 mmol/L 136-145 POTASSIUM (test code=K) 4.3 mmol/L 3.5-5.1 CHLORIDE (test code=CL) 95.0 mmol/L 98-107 CARBON DIOXIDE (test code=CO2) 32.0 mmol/L 21-32 ANION GAP (test code=GAP) 10.3 10-20 GLUCOSE (test code=GLU) 118 mg/dL 74-106 BLOOD UREA NITROGEN (test code=BUN) 23 mg/dL 7-18 GLOMERULAR FILTRATION RATE (test code=GFR) > 60 mL/min >=60 Estimated GFR by using Modified MDRD formula.Chronic kidney disease is defined as either kidney damageor GFR <60 mL/min/1.73 m2 for >3 months. CREATININE (test code=CREAT) 0.80 mg/dL 0.7-1.3 BUN/CREATININE RATIO (test code=BUN/CREA) 29.9 10-20 CALCIUM (test code=CA) 8.3 mg/dL 8.5-10.1 BASIC METABOLIC [id number] 05:46:00* Test Item Value Reference Range Comments SODIUM (test code=NA) 133 mmol/L 136-145 POTASSIUM (test code=K) 4.3 mmol/L 3.5-5.1 CHLORIDE (test code=CL) 95.0 mmol/L 98-107 CARBON DIOXIDE (test code=CO2) mmol/L 21-32 ANION GAP (test code=GAP) 10-20 GLUCOSE (test code=GLU) mg/dL 74-106 BLOOD UREA NITROGEN (test code=BUN) mg/dL 7-18 GLOMERULAR FILTRATION RATE (test code=GFR) mL/min >=60 CREATININE (test code=CREAT) mg/dL 0.7-1.3 BUN/CREATININE RATIO (test code=BUN/CREA) 10-20 CALCIUM (test code=CA) 8.3 mg/dL 8.5-10.1 [id number] 18:04:00* Test Item Value Reference Range Comments SODIUM (test code=NA) 131 mmol/L 136-145 BASIC METABOLIC [id number] 16:29:00* Test Item Value Reference Range Comments SODIUM (test code=NA) 132 mmol/L 136-145 POTASSIUM (test code=K) 3.8 mmol/L 3.5-5.1 CHLORIDE (test code=CL) 91.0 mmol/L 98-107 CARBON DIOXIDE (test code=CO2) 33.0 mmol/L 21-32 ANION GAP (test code=GAP) 11.8 10-20 GLUCOSE (test code=GLU) 90 mg/dL 74-106 BLOOD UREA NITROGEN (test code=BUN) 25 mg/dL 7-18 GLOMERULAR FILTRATION RATE (test code=GFR) > 60 mL/min >=60 Estimated GFR by using Modified MDRD formula.Chronic kidney disease is defined as either kidney damageor GFR <60 mL/min/1.73 m2 for >3 months. CREATININE (test code=CREAT) 0.90 mg/dL 0.7-1.3 BUN/CREATININE RATIO (test code=BUN/CREA) 27.0 10-20 CALCIUM (test code=CA) 8.8 mg/dL 8.5-10.1 [id number] 14:01:00* Test Item Value Reference Range Comments SODIUM (test code=NA) 132 mmol/L 136-145 BASIC METABOLIC [id number] 09:18:00* Test Item Value Reference Range Comments SODIUM (test code=NA) 134 mmol/L 136-145 POTASSIUM (test code=K) 3.8 mmol/L 3.5-5.1 CHLORIDE (test code=CL) 95.0 mmol/L 98-107 CARBON DIOXIDE (test code=CO2) 35.0 mmol/L 21-32 ANION GAP (test code=GAP) 7.8 10-20 GLUCOSE (test code=GLU) 126 mg/dL 74-106 BLOOD UREA NITROGEN (test code=BUN) 21 mg/dL 7-18 GLOMERULAR FILTRATION RATE (test code=GFR) > 60 mL/min >=60 Estimated GFR by using Modified MDRD formula.Chronic kidney disease is defined as either kidney damageor GFR <60 mL/min/1.73 m2 for >3 months. CREATININE (test code=CREAT) 0.80 mg/dL 0.7-1.3 BUN/CREATININE RATIO (test code=BUN/CREA) 25.1 10-20 CALCIUM (test code=CA) 8.7 mg/dL 8.5-10.1 [id number] 09:18:00* Test Item Value Reference Range Comments PHOSPHORUS (test code=PHOS) 3.0 mg/dL 2.5-4.9 [id number] 09:18:00* Test Item Value Reference Range Comments MAGNESIUM (test code=MAG) 2.5 mg/dL 1.8-2.4 BASIC METABOLIC [id number] 09:11:00* Test Item Value Reference Range Comments SODIUM (test code=NA) 134 mmol/L 136-145 POTASSIUM (test code=K) 3.8 mmol/L 3.5-5.1 CHLORIDE (test code=CL) 95.0 mmol/L 98-107 CARBON DIOXIDE (test code=CO2) mmol/L 21-32 ANION GAP (test code=GAP) 10-20 GLUCOSE (test code=GLU) mg/dL 74-106 BLOOD UREA NITROGEN (test code=BUN) mg/dL 7-18 GLOMERULAR FILTRATION RATE (test code=GFR) mL/min >=60 CREATININE (test code=CREAT) mg/dL 0.7-1.3 BUN/CREATININE RATIO (test code=BUN/CREA) 10-20 CALCIUM (test code=CA) mg/dL 8.5-10.1 [id number] 09:11:00* Test Item Value Reference Range Comments PHOSPHORUS (test code=PHOS) mg/dL 2.5-4.9 [id number] 09:11:00* Test Item Value Reference Range Comments MAGNESIUM (test code=MAG) mg/dL 1.8-2.4 BASIC METABOLIC [id number] 03:38:00* Test Item Value Reference Range Comments SODIUM (test code=NA) 136 mmol/L 136-145 POTASSIUM (test code=K) 4.1 mmol/L 3.5-5.1 CHLORIDE (test code=CL) 96.0 mmol/L 98-107 CARBON DIOXIDE (test code=CO2) 32.0 mmol/L 21-32 ANION GAP (test code=GAP) 12.1 10-20 GLUCOSE (test code=GLU) 131 mg/dL 74-106 BLOOD UREA NITROGEN (test code=BUN) 24 mg/dL 7-18 GLOMERULAR FILTRATION RATE (test code=GFR) > 60 mL/min >=60 Estimated GFR by using Modified MDRD formula.Chronic kidney disease is defined as either kidney damageor GFR <60 mL/min/1.73 m2 for >3 months. CREATININE (test code=CREAT) 0.80 mg/dL 0.7-1.3 BUN/CREATININE RATIO (test code=BUN/CREA) 29.1 10-20 CALCIUM (test code=CA) 8.7 mg/dL 8.5-10.1 CBC W/AUTO [id number] 03:10:00* Test Item Value Reference Range Comments WHITE BLOOD CELL (test code=WBC) 13.3 K/mm3 4.5-12.5 RED BLOOD CELL (test code=RBC) 4.42 mill/mm3 4.0-5.8 HEMOGLOBIN (test code=HGB) 13.2 gram/dL 13.0-17.5 HEMATOCRIT (test code=HCT) 40.6 % 42.0-52.0 MEAN CELL VOLUME (test code=MCV) 91.9 fL 80-98 MEAN CELL HGB (test code=MCH) 29.9 picogram 27.0-33.0 MEAN CELL HGB CONCETRATION (test code=MCHC) 32.5 gram/dL 33.0-36.0 RED CELL DISTRIBUTION WIDTH (test code=RDW) 12.5 % 11.6-16.2 RED CELL DISTRIBUTION WIDTH SD (test code=RDW-SD) 42.3 fL 37.0-51.0 PLATELET COUNT (test code=PLT) 249 K/mm3 150-450 MEAN PLATELET VOLUME (test code=MPV) 9.5 fL 6.7-11.0 NEUTROPHIL % (test code=NT%) 88.7 % 39.0-69.0 IMMATURE GRANULOCYTE % (test code=IG%) 0.9 % 0.0-5.0 LYMPHOCYTE % (test code=LY%) 2.4 % 25.0-55.0 MONOCYTE % (test code=MO%) 7.9 % 0.0-10.0 EOSINOPHIL % (test code=EO%) 0.0 % 0.0-5.0 BASOPHIL % (test code=BA%) 0.1 % 0.0-1.0 NUCLEATED RBC % (test code=NRBC%) 0.0 % 0-0 NEUTROPHIL # (test code=NT#) 11.84 K/mm3 1.8-7.7 IMMATURE GRANULOCYTE # (test code=IG#) 0.12 x10 3/uL 0-0.03 LYMPHOCYTE # (test code=LY#) 0.32 K/mm3 1.0-5.0 MONOCYTE # (test code=MO#) 1.05 K/mm3 0-0.8 EOSINOPHIL # (test code=EO#) 0.00 K/mm3 0.0-0.5 BASOPHIL # (test code=BA#) 0.01 K/mm3 0.0-0.2 NUCLEATED RBC # (test code=NRBC#) 0.00 K/mm3 0.0-0.1 MANUAL DIFF REQUIRED (test code=MDIFF) NO CBC W/AUTO [id number] 03:09:00* Test Item Value Reference Range Comments WHITE BLOOD CELL (test code=WBC) K/mm3 4.5-12.5 RED BLOOD CELL (test code=RBC) mill/mm3 4.0-5.8 HEMOGLOBIN (test code=HGB) 13.2 gram/dL 13.0-17.5 HEMATOCRIT (test code=HCT) % 42.0-52.0 MEAN CELL VOLUME (test code=MCV) fL 80-98 MEAN CELL HGB (test code=MCH) picogram 27.0-33.0 MEAN CELL HGB CONCETRATION (test code=MCHC) gram/dL 33.0-36.0 RED CELL DISTRIBUTION WIDTH (test code=RDW) % 11.6-16.2 RED CELL DISTRIBUTION WIDTH SD (test code=RDW-SD) fL 37.0-51.0 PLATELET COUNT (test code=PLT) K/mm3 150-450 MEAN PLATELET VOLUME (test code=MPV) fL 6.7-11.0 NEUTROPHIL % (test code=NT%) % 39.0-69.0 IMMATURE GRANULOCYTE % (test code=IG%) % 0.0-5.0 LYMPHOCYTE % (test code=LY%) % 25.0-55.0 MONOCYTE % (test code=MO%) % 0.0-10.0 EOSINOPHIL % (test code=EO%) % 0.0-5.0 BASOPHIL % (test code=BA%) % 0.0-1.0 NEUTROPHIL # (test code=NT#) K/mm3 1.8-7.7 LYMPHOCYTE # (test code=LY#) K/mm3 1.0-5.0 MONOCYTE # (test code=MO#) K/mm3 0-0.8 EOSINOPHIL # (test code=EO#) K/mm3 0.0-0.5 BASOPHIL # (test code=BA#) K/mm3 0.0-0.2 BASIC METABOLIC [id number] 23:05:00* Test Item Value Reference Range Comments SODIUM (test code=NA) 134 mmol/L 136-145 POTASSIUM (test code=K) 4.3 mmol/L 3.5-5.1 CHLORIDE (test code=CL) 93.0 mmol/L 98-107 CARBON DIOXIDE (test code=CO2) 31.0 mmol/L 21-32 ANION GAP (test code=GAP) 14.3 10-20 GLUCOSE (test code=GLU) 142 mg/dL 74-106 BLOOD UREA NITROGEN (test code=BUN) 28 mg/dL 7-18 GLOMERULAR FILTRATION RATE (test code=GFR) > 60 mL/min >=60 Estimated GFR by using Modified MDRD formula.Chronic kidney disease is defined as either kidney damageor GFR <60 mL/min/1.73 m2 for >3 months. CREATININE (test code=CREAT) 1.00 mg/dL 0.7-1.3 BUN/CREATININE RATIO (test code=BUN/CREA) 28.9 10-20 CALCIUM (test code=CA) 9.6 mg/dL 8.5-10.1 TIME CHANGED PER TRANG [id number] V.LAB.KW 05/20/18 2045BASIC METABOLIC PANEL 2018-05-20 23:01:00* Test Item Value Reference Range Comments SODIUM (test code=NA) 134 mmol/L 136-145 POTASSIUM (test code=K) 4.3 mmol/L 3.5-5.1 CHLORIDE (test code=CL) 93.0 mmol/L 98-107 CARBON DIOXIDE (test code=CO2) mmol/L 21-32 ANION GAP (test code=GAP) 10-20 GLUCOSE (test code=GLU) mg/dL 74-106 BLOOD UREA NITROGEN (test code=BUN) mg/dL 7-18 GLOMERULAR FILTRATION RATE (test code=GFR) mL/min >=60 CREATININE (test code=CREAT) mg/dL 0.7-1.3 BUN/CREATININE RATIO (test code=BUN/CREA) 10-20 CALCIUM (test code=CA) 9.6 mg/dL 8.5-10.1 TIME CHANGED PER TRANG [id number] V.LAB.KW 05/20/18 2045BASIC METABOLIC PANEL 2018-05-20 20:55:00* Test Item Value Reference Range Comments SODIUM (test code=NA) 133 mmol/L 136-145 POTASSIUM (test code=K) 4.6 mmol/L 3.5-5.1 CHLORIDE (test code=CL) 91.0 mmol/L 98-107 CARBON DIOXIDE (test code=CO2) 34.0 mmol/L 21-32 ANION GAP (test code=GAP) 12.6 10-20 GLUCOSE (test code=GLU) 175 mg/dL 74-106 BLOOD UREA NITROGEN (test code=BUN) 26 mg/dL 7-18 GLOMERULAR FILTRATION RATE (test code=GFR) > 60 mL/min >=60 Estimated GFR by using Modified MDRD formula.Chronic kidney disease is defined as either kidney damageor GFR <60 mL/min/1.73 m2 for >3 months. CREATININE (test code=CREAT) 1.10 mg/dL 0.7-1.3 BUN/CREATININE RATIO (test code=BUN/CREA) 23.4 10-20 CALCIUM (test code=CA) 9.7 mg/dL 8.5-10.1 BASIC METABOLIC [id number] 18:54:00* Test Item Value Reference Range Comments SODIUM (test code=NA) 135 mmol/L 136-145 POTASSIUM (test code=K) 4.4 mmol/L 3.5-5.1 CHLORIDE (test code=CL) 92.0 mmol/L 98-107 CARBON DIOXIDE (test code=CO2) 37.0 mmol/L 21-32 ANION GAP (test code=GAP) 10.4 10-20 GLUCOSE (test code=GLU) 146 mg/dL 74-106 BLOOD UREA NITROGEN (test code=BUN) 24 mg/dL 7-18 GLOMERULAR FILTRATION RATE (test code=GFR) > 60 mL/min >=60 Estimated GFR by using Modified MDRD formula.Chronic kidney disease is defined as either kidney damageor GFR <60 mL/min/1.73 m2 for >3 months. CREATININE (test code=CREAT) 1.00 mg/dL 0.7-1.3 BUN/CREATININE RATIO (test code=BUN/CREA) 25.0 10-20 CALCIUM (test code=CA) 9.1 mg/dL 8.5-10.1 BASIC METABOLIC [id number] 18:46:00* Test Item Value Reference Range Comments SODIUM (test code=NA) 135 mmol/L 136-145 POTASSIUM (test code=K) 4.4 mmol/L 3.5-5.1 CHLORIDE (test code=CL) 92.0 mmol/L 98-107 CARBON DIOXIDE (test code=CO2) mmol/L 21-32 ANION GAP (test code=GAP) 10-20 GLUCOSE (test code=GLU) mg/dL 74-106 BLOOD UREA NITROGEN (test code=BUN) mg/dL 7-18 GLOMERULAR FILTRATION RATE (test code=GFR) mL/min >=60 CREATININE (test code=CREAT) mg/dL 0.7-1.3 BUN/CREATININE RATIO (test code=BUN/CREA) 10-20 CALCIUM (test code=CA) mg/dL 8.5-10.1 BASIC METABOLIC [id number] 15:29:00* Test Item Value Reference Range Comments SODIUM (test code=NA) 138 mmol/L 136-145 RESULT VERIFIED BY REPEAT ANALYSIS POTASSIUM (test code=K) 4.1 mmol/L 3.5-5.1 CHLORIDE (test code=CL) 95.0 mmol/L 98-107 CARBON DIOXIDE (test code=CO2) 32.0 mmol/L 21-32 ANION GAP (test code=GAP) 15.1 10-20 GLUCOSE (test code=GLU) 143 mg/dL 74-106 BLOOD UREA NITROGEN (test code=BUN) 24 mg/dL 7-18 GLOMERULAR FILTRATION RATE (test code=GFR) > 60 mL/min >=60 Estimated GFR by using Modified MDRD formula.Chronic kidney disease is defined as either kidney damageor GFR <60 mL/min/1.73 m2 for >3 months. CREATININE (test code=CREAT) 0.80 mg/dL 0.7-1.3 BUN/CREATININE RATIO (test code=BUN/CREA) 30.3 10-20 CALCIUM (test code=CA) 9.1 mg/dL 8.5-10.1 B-TYPE NATRIURETIC [id number] 07:49:00* Test Item Value Reference Range Comments B-TYPE NATRIURETIC PEPTIDE (test code=BNP) 422.17 pgram/mL 0-100 BASIC METABOLIC [id number] 07:42:00* Test Item Value Reference Range Comments SODIUM (test code=NA) 124 mmol/L 136-145 Results called to [id number] by V.[email or web address].LETHA 05/20/18 0742Critical results verified and read back by Nurse? Y POTASSIUM (test code=K) 4.1 mmol/L 3.5-5.1 CHLORIDE (test code=CL) 84.0 mmol/L 98-107 CARBON DIOXIDE (test code=CO2) 31.0 mmol/L 21-32 ANION GAP (test code=GAP) 13.1 10-20 GLUCOSE (test code=GLU) 129 mg/dL 74-106 BLOOD UREA NITROGEN (test code=BUN) 25 mg/dL 7-18 GLOMERULAR FILTRATION RATE (test code=GFR) > 60 mL/min >=60 Estimated GFR by using Modified MDRD formula.Chronic kidney disease is defined as either kidney damageor GFR <60 mL/min/1.73 m2 for >3 months. CREATININE (test code=CREAT) 0.80 mg/dL 0.7-1.3 BUN/CREATININE RATIO (test code=BUN/CREA) 30.7 10-20 CALCIUM (test code=CA) 8.9 mg/dL 8.5-10.1 [id number] 07:42:00* Test Item Value Reference Range Comments ALBUMIN (test code=ALB) 3.3 g/dL 3.4-5.0 [id number] 07:42:00* Test Item Value Reference Range Comments PHOSPHORUS (test code=PHOS) 3.6 mg/dL 2.5-4.9 [id number] 07:42:00* Test Item Value Reference Range Comments MAGNESIUM (test code=MAG) 2.5 mg/dL 1.8-2.4 BASIC METABOLIC [id number] 07:32:00* Test Item Value Reference Range Comments SODIUM (test code=NA) mmol/L 136-145 POTASSIUM (test code=K) mmol/L 3.5-5.1 CHLORIDE (test code=CL) mmol/L 98-107 CARBON DIOXIDE (test code=CO2) 31.0 mmol/L 21-32 ANION GAP (test code=GAP) 10-20 GLUCOSE (test code=GLU) 129 mg/dL 74-106 BLOOD UREA NITROGEN (test code=BUN) 25 mg/dL 7-18 GLOMERULAR FILTRATION RATE (test code=GFR) > 60 mL/min >=60 Estimated GFR by using Modified MDRD formula.Chronic kidney disease is defined as either kidney damageor GFR <60 mL/min/1.73 m2 for >3 months. CREATININE (test code=CREAT) 0.80 mg/dL 0.7-1.3 BUN/CREATININE RATIO (test code=BUN/CREA) 30.7 10-20 CALCIUM (test code=CA) 8.9 mg/dL 8.5-10.1 [id number] 07:32:00* Test Item Value Reference Range Comments ALBUMIN (test code=ALB) 3.3 g/dL 3.4-5.0 [id number] 07:32:00* Test Item Value Reference Range Comments PHOSPHORUS (test code=PHOS) 3.6 mg/dL 2.5-4.9 [id number] 07:32:00* Test Item Value Reference Range Comments MAGNESIUM (test code=MAG) 2.5 mg/dL 1.8-2.4 CBC W/AUTO [id number] 07:03:00* Test Item Value Reference Range Comments WHITE BLOOD CELL (test code=WBC) 11.5 K/mm3 4.5-12.5 RED BLOOD CELL (test code=RBC) 4.36 mill/mm3 4.0-5.8 HEMOGLOBIN (test code=HGB) 13.2 gram/dL 13.0-17.5 HEMATOCRIT (test code=HCT) 38.5 % 42.0-52.0 MEAN CELL VOLUME (test code=MCV) 88.3 fL 80-98 MEAN CELL HGB (test code=MCH) 30.3 picogram 27.0-33.0 MEAN CELL HGB CONCETRATION (test code=MCHC) 34.3 gram/dL 33.0-36.0 RED CELL DISTRIBUTION WIDTH (test code=RDW) 12.5 % 11.6-16.2 RED CELL DISTRIBUTION WIDTH SD (test code=RDW-SD) 40.6 fL 37.0-51.0 PLATELET COUNT (test code=PLT) 280 K/mm3 150-450 RESULT VERIFIED BY REPEAT ANALYSIS MEAN PLATELET VOLUME (test code=MPV) 9.6 fL 6.7-11.0 NEUTROPHIL % (test code=NT%) 86.4 % 39.0-69.0 IMMATURE GRANULOCYTE % (test code=IG%) 0.6 % 0.0-5.0 LYMPHOCYTE % (test code=LY%) 2.8 % 25.0-55.0 MONOCYTE % (test code=MO%) 10.1 % 0.0-10.0 EOSINOPHIL % (test code=EO%) 0.0 % 0.0-5.0 BASOPHIL % (test code=BA%) 0.1 % 0.0-1.0 NUCLEATED RBC % (test code=NRBC%) 0.0 % 0-0 NEUTROPHIL # (test code=NT#) 9.95 K/mm3 1.8-7.7 IMMATURE GRANULOCYTE # (test code=IG#) 0.07 x10 3/uL 0-0.03 LYMPHOCYTE # (test code=LY#) 0.32 K/mm3 1.0-5.0 MONOCYTE # (test code=MO#) 1.16 K/mm3 0-0.8 EOSINOPHIL # (test code=EO#) 0.00 K/mm3 0.0-0.5 BASOPHIL # (test code=BA#) 0.01 K/mm3 0.0-0.2 NUCLEATED RBC # (test code=NRBC#) 0.00 K/mm3 0.0-0.1 MANUAL DIFF REQUIRED (test code=MDIFF) NO BASIC METABOLIC [id number] 01:51:00* Test Item Value Reference Range Comments SODIUM (test code=NA) 123 mmol/L 136-145 Results called to [id number] by [email or web address] 05/20/18 0149Critical results verified and read back by Nurse? Y POTASSIUM (test code=K) 4.3 mmol/L 3.5-5.1 CHLORIDE (test code=CL) 81.0 mmol/L 98-107 CARBON DIOXIDE (test code=CO2) 35.0 mmol/L 21-32 ANION GAP (test code=GAP) 11.3 10-20 GLUCOSE (test code=GLU) 131 mg/dL 74-106 BLOOD UREA NITROGEN (test code=BUN) 24 mg/dL 7-18 GLOMERULAR FILTRATION RATE (test code=GFR) > 60 mL/min >=60 Estimated GFR by using Modified MDRD formula.Chronic kidney disease is defined as either kidney damageor GFR <60 mL/min/1.73 m2 for >3 months. CREATININE (test code=CREAT) 0.80 mg/dL 0.7-1.3 BUN/CREATININE RATIO (test code=BUN/CREA) 29.1 10-20 CALCIUM (test code=CA) 8.7 mg/dL 8.5-10.1 BASIC METABOLIC [id number] 01:49:00* Test Item Value Reference Range Comments SODIUM (test code=NA) mmol/L 136-145 POTASSIUM (test code=K) mmol/L 3.5-5.1 CHLORIDE (test code=CL) mmol/L 98-107 CARBON DIOXIDE (test code=CO2) mmol/L 21-32 ANION GAP (test code=GAP) 10-20 GLUCOSE (test code=GLU) mg/dL 74-106 BLOOD UREA NITROGEN (test code=BUN) mg/dL 7-18 GLOMERULAR FILTRATION RATE (test code=GFR) > 60 mL/min >=60 Estimated GFR by using Modified MDRD formula.Chronic kidney disease is defined as either kidney damageor GFR <60 mL/min/1.73 m2 for >3 months. CREATININE (test code=CREAT) 0.80 mg/dL 0.7-1.3 BUN/CREATININE RATIO (test code=BUN/CREA) 29.1 10-20 CALCIUM (test code=CA) mg/dL 8.5-10.1 BASIC METABOLIC [id number] 21:40:00* Test Item Value Reference Range Comments SODIUM (test code=NA) 115 mmol/L 136-145 POTASSIUM (test code=K) 4.1 mmol/L 3.5-5.1 CHLORIDE (test code=CL) 75.0 mmol/L 98-107 CARBON DIOXIDE (test code=CO2) 34.0 mmol/L 21-32 ANION GAP (test code=GAP) 10.1 10-20 GLUCOSE (test code=GLU) 138 mg/dL 74-106 BLOOD UREA NITROGEN (test code=BUN) 30 mg/dL 7-18 GLOMERULAR FILTRATION RATE (test code=GFR) > 60 mL/min >=60 Estimated GFR by using Modified MDRD formula.Chronic kidney disease is defined as either kidney damageor GFR <60 mL/min/1.73 m2 for >3 months. CREATININE (test code=CREAT) 0.90 mg/dL 0.7-1.3 BUN/CREATININE RATIO (test code=BUN/CREA) 31.6 10-20 CALCIUM (test code=CA) 9.1 mg/dL 8.5-10.1 SPECIMEN COMMENTS: DO IT Q 4HRS UNTIL DR. RAMÍREZ SAY TO D/CBASIC METABOLIC PANEL 2018-05-19 20:32:00* Test Item Value Reference Range Comments SODIUM (test code=NA) 119 mmol/L 136-145 POTASSIUM (test code=K) 4.1 mmol/L 3.5-5.1 CHLORIDE (test code=CL) 78.0 mmol/L 98-107 CARBON DIOXIDE (test code=CO2) 33.0 mmol/L 21-32 ANION GAP (test code=GAP) 12.1 10-20 GLUCOSE (test code=GLU) 163 mg/dL 74-106 BLOOD UREA NITROGEN (test code=BUN) 29 mg/dL 7-18 GLOMERULAR FILTRATION RATE (test code=GFR) > 60 mL/min >=60 Estimated GFR by using Modified MDRD formula.Chronic kidney disease is defined as either kidney damageor GFR <60 mL/min/1.73 m2 for >3 months. CREATININE (test code=CREAT) 1.00 mg/dL 0.7-1.3 BUN/CREATININE RATIO (test code=BUN/CREA) 28.2 10-20 CALCIUM (test code=CA) 8.9 mg/dL 8.5-10.1 SPECIMEN COMMENTS: DO IT Q 4HRS UNTIL DR. RAMÍREZ SAY TO D/C- XR CHEST 1 V 2018-05-19 09:11:00 FAX: Izabela Contreras MD [phone] [place]: St: ADM FAX: Nato Fernandez MD [phone] FAX: Pelon Herrera MD [phone] Name: BRITT HUDSON [facility] : 1940 Age/S: 78/M [address] [facility] Unit #: [id number] Loc: V.[address]87 [place] [address] Phys: Nato Cadet MD Acct: [id number] Dis Date: Status: ADM IN ONE #: [phone] Exam Date: 05/19/2018 0859 FAX #: [phone] Reason: chf EXAMS: CPT CODE: [id number] XR CHEST 1 V 16034 HISTORY: CHF. COMPARISON: May 14, 2018. Severe COPD with basal pr edominance. Lung scarring. No infiltrates, effusion or congestion. Cardiac silhouette is normal. IMPRESSION: COPD without infiltrates, effusion or congestion. at 0911 Reported and signed by: Fede Felix M.D. CC: Izabela Arias MD; Nato Cadet MD; Pelno Lawrence MD Technologist: Lima Mendez RT(R); MOJGAN STOREY RT (R) Trnnhrd Date/Time/By: 05/19/2018 (0911) : By: [email or web address] Orig Print D/T: S: 05/19/2018 (0914) PAGE 1 Signed Report BASIC METABOLIC PANEL 2018-05-19 06:06:00* Test Item Value Reference Range Comments SODIUM (test code=NA) 124 mmol/L 136-145 Results called to [place] [id number] by [email or web address] 05/19/18 0605Critical results verified and read back by Nurse? Y POTASSIUM (test code=K) 3.9 mmol/L 3.5-5.1 CHLORIDE (test code=CL) 82.0 mmol/L 98-107 CARBON DIOXIDE (test code=CO2) 34.0 mmol/L 21-32 ANION GAP (test code=GAP) 11.9 10-20 GLUCOSE (test code=GLU) 123 mg/dL 74-106 BLOOD UREA NITROGEN (test code=BUN) 25 mg/dL 7-18 GLOMERULAR FILTRATION RATE (test code=GFR) > 60 mL/min >=60 Estimated GFR by using Modified MDRD formula.Chronic kidney disease is defined as either kidney damageor GFR <60 mL/min/1.73 m2 for >3 months. CREATININE (test code=CREAT) 0.80 mg/dL 0.7-1.3 BUN/CREATININE RATIO (test code=BUN/CREA) 31.3 10-20 CALCIUM (test code=CA) 8.7 mg/dL 8.5-10.1 [id number] 06:06:00* Test Item Value Reference Range Comments PHOSPHORUS (test code=PHOS) 3.2 mg/dL 2.5-4.9 [id number] 06:06:00* Test Item Value Reference Range Comments MAGNESIUM (test code=MAG) 2.3 mg/dL 1.8-2.4 CBC W/O [id number] 05:12:00* Test Item Value Reference Range Comments WHITE BLOOD CELL (test code=WBC) 11.0 K/mm3 4.5-12.5 RED BLOOD CELL (test code=RBC) 4.14 mill/mm3 4.0-5.8 HEMOGLOBIN (test code=HGB) 12.6 gram/dL 13.0-17.5 HEMATOCRIT (test code=HCT) 36.6 % 42.0-52.0 MEAN CELL VOLUME (test code=MCV) 88.4 fL 80-98 MEAN CELL HGB (test code=MCH) 30.4 picogram 27.0-33.0 MEAN CELL HGB CONCETRATION (test code=MCHC) 34.4 gram/dL 33.0-36.0 RED CELL DISTRIBUTION WIDTH (test code=RDW) 12.5 % 11.6-16.2 PLATELET COUNT (test code=PLT) 223 K/mm3 150-450 MEAN PLATELET VOLUME (test code=MPV) 9.6 fL 6.7-11.0 BASIC METABOLIC [id number] 21:34:00* Test Item Value Reference Range Comments SODIUM (test code=NA) 124 mmol/L 136-145 Results called to [id number] by V.[email or web address].SPR 05/18/18 2134Critical results verified and read back by Nurse? Y POTASSIUM (test code=K) 3.9 mmol/L 3.5-5.1 CHLORIDE (test code=CL) 84.0 mmol/L 98-107 CARBON DIOXIDE (test code=CO2) 32.0 mmol/L 21-32 ANION GAP (test code=GAP) 11.9 10-20 GLUCOSE (test code=GLU) 129 mg/dL 74-106 BLOOD UREA NITROGEN (test code=BUN) 28 mg/dL 7-18 GLOMERULAR FILTRATION RATE (test code=GFR) > 60 mL/min >=60 Estimated GFR by using Modified MDRD formula.Chronic kidney disease is defined as either kidney damageor GFR <60 mL/min/1.73 m2 for >3 months. CREATININE (test code=CREAT) 0.80 mg/dL 0.7-1.3 BUN/CREATININE RATIO (test code=BUN/CREA) 35.0 10-20 CALCIUM (test code=CA) 9.3 mg/dL 8.5-10.1 OSMOLALITY [id number] 21:04:00* Test Item Value Reference Range Comments OSMOLALITY SERUM (test code=OSMO) 271 mOsm/kg 275-295 UR OSMOLALITY [id number] 18:06:00* Test Item Value Reference Range Comments UR OSMOLALITY RANDOM (test code=OSMOU) 199 mOsm/kg 48-962 UR NA,[id number] 18:06:00* Test Item Value Reference Range Comments UR NA,RANDOM (test code=MISAEL) 35 mmol/L 20-110 BASIC METABOLIC [id number] 07:28:00* Test Item Value Reference Range Comments SODIUM (test code=NA) 123 mmol/L 136-145 Results called to [id number] by V.[email or web address] 05/18/18 0728Critical results verified and read back by Nurse? Y POTASSIUM (test code=K) 4.3 mmol/L 3.5-5.1 CHLORIDE (test code=CL) 84.0 mmol/L 98-107 CARBON DIOXIDE (test code=CO2) 29.0 mmol/L 21-32 ANION GAP (test code=GAP) 14.3 10-20 GLUCOSE (test code=GLU) 128 mg/dL 74-106 BLOOD UREA NITROGEN (test code=BUN) 25 mg/dL 7-18 GLOMERULAR FILTRATION RATE (test code=GFR) > 60 mL/min >=60 Estimated GFR by using Modified MDRD formula.Chronic kidney disease is defined as either kidney damageor GFR <60 mL/min/1.73 m2 for >3 months. CREATININE (test code=CREAT) 0.80 mg/dL 0.7-1.3 BUN/CREATININE RATIO (test code=BUN/CREA) 31.3 10-20 CALCIUM (test code=CA) 9.2 mg/dL 8.5-10.1 CBC W/AUTO [id number] 07:02:00* Test Item Value Reference Range Comments WHITE BLOOD CELL (test code=WBC) 10.1 K/mm3 4.5-12.5 RED BLOOD CELL (test code=RBC) 4.35 mill/mm3 4.0-5.8 HEMOGLOBIN (test code=HGB) 13.1 gram/dL 13.0-17.5 HEMATOCRIT (test code=HCT) 39.4 % 42.0-52.0 MEAN CELL VOLUME (test code=MCV) 90.6 fL 80-98 MEAN CELL HGB (test code=MCH) 30.1 picogram 27.0-33.0 MEAN CELL HGB CONCETRATION (test code=MCHC) 33.2 gram/dL 33.0-36.0 RED CELL DISTRIBUTION WIDTH (test code=RDW) 12.9 % 11.6-16.2 RED CELL DISTRIBUTION WIDTH SD (test code=RDW-SD) 42.5 fL 37.0-51.0 PLATELET COUNT (test code=PLT) 266 K/mm3 150-450 MEAN PLATELET VOLUME (test code=MPV) 9.6 fL 6.7-11.0 NEUTROPHIL % (test code=NT%) 82.2 % 39.0-69.0 IMMATURE GRANULOCYTE % (test code=IG%) 1.1 % 0.0-5.0 LYMPHOCYTE % (test code=LY%) 4.9 % 25.0-55.0 MONOCYTE % (test code=MO%) 11.7 % 0.0-10.0 EOSINOPHIL % (test code=EO%) 0.0 % 0.0-5.0 BASOPHIL % (test code=BA%) 0.1 % 0.0-1.0 NUCLEATED RBC % (test code=NRBC%) 0.0 % 0-0 NEUTROPHIL # (test code=NT#) 8.31 K/mm3 1.8-7.7 IMMATURE GRANULOCYTE # (test code=IG#) 0.11 x10 3/uL 0-0.03 LYMPHOCYTE # (test code=LY#) 0.49 K/mm3 1.0-5.0 MONOCYTE # (test code=MO#) 1.18 K/mm3 0-0.8 EOSINOPHIL # (test code=EO#) 0.00 K/mm3 0.0-0.5 BASOPHIL # (test code=BA#) 0.01 K/mm3 0.0-0.2 NUCLEATED RBC # (test code=NRBC#) 0.00 K/mm3 0.0-0.1 MANUAL DIFF REQUIRED (test code=MDIFF) NO CBC W/AUTO [id number] 06:52:00* Test Item Value Reference Range Comments WHITE BLOOD CELL (test code=WBC) K/mm3 4.5-12.5 RED BLOOD CELL (test code=RBC) mill/mm3 4.0-5.8 HEMOGLOBIN (test code=HGB) 13.1 gram/dL 13.0-17.5 HEMATOCRIT (test code=HCT) % 42.0-52.0 MEAN CELL VOLUME (test code=MCV) fL 80-98 MEAN CELL HGB (test code=MCH) picogram 27.0-33.0 MEAN CELL HGB CONCETRATION (test code=MCHC) gram/dL 33.0-36.0 RED CELL DISTRIBUTION WIDTH (test code=RDW) % 11.6-16.2 RED CELL DISTRIBUTION WIDTH SD (test code=RDW-SD) fL 37.0-51.0 PLATELET COUNT (test code=PLT) K/mm3 150-450 MEAN PLATELET VOLUME (test code=MPV) fL 6.7-11.0 NEUTROPHIL % (test code=NT%) % 39.0-69.0 IMMATURE GRANULOCYTE % (test code=IG%) % 0.0-5.0 LYMPHOCYTE % (test code=LY%) % 25.0-55.0 MONOCYTE % (test code=MO%) % 0.0-10.0 EOSINOPHIL % (test code=EO%) % 0.0-5.0 BASOPHIL % (test code=BA%) % 0.0-1.0 NEUTROPHIL # (test code=NT#) K/mm3 1.8-7.7 LYMPHOCYTE # (test code=LY#) K/mm3 1.0-5.0 MONOCYTE # (test code=MO#) K/mm3 0-0.8 EOSINOPHIL # (test code=EO#) K/mm3 0.0-0.5 BASOPHIL # (test code=BA#) K/mm3 0.0-0.2 ALPHA 1 [id number] 15:19:00* Test Item Value Reference Range Comments ALPHA 1 ANTITRYPSIN (test code=NVQH3SVK) 181 mg/dL 90-200 Performed At: DA [facility] [id number] [facility] [address] [place], [place] [id number] CN MD Ph:[phone] BASIC METABOLIC [id number] 07:13:00* Test Item Value Reference Range Comments SODIUM (test code=NA) 126 mmol/L 136-145 POTASSIUM (test code=K) 5.1 mmol/L 3.5-5.1 CHLORIDE (test code=CL) 90.0 mmol/L 98-107 CARBON DIOXIDE (test code=CO2) 27.0 mmol/L 21-32 ANION GAP (test code=GAP) 14.1 10-20 GLUCOSE (test code=GLU) 128 mg/dL 74-106 BLOOD UREA NITROGEN (test code=BUN) 20 mg/dL 7-18 GLOMERULAR FILTRATION RATE (test code=GFR) > 60 mL/min >=60 Estimated GFR by using Modified MDRD formula.Chronic kidney disease is defined as either kidney damageor GFR <60 mL/min/1.73 m2 for >3 months. CREATININE (test code=CREAT) 0.80 mg/dL 0.7-1.3 BUN/CREATININE RATIO (test code=BUN/CREA) 25.0 10-20 CALCIUM (test code=CA) 9.1 mg/dL 8.5-10.1 BASIC METABOLIC [id number] 06:59:00* Test Item Value Reference Range Comments SODIUM (test code=NA) 126 mmol/L 136-145 POTASSIUM (test code=K) 5.1 mmol/L 3.5-5.1 CHLORIDE (test code=CL) 90.0 mmol/L 98-107 CARBON DIOXIDE (test code=CO2) mmol/L 21-32 ANION GAP (test code=GAP) 10-20 GLUCOSE (test code=GLU) mg/dL 74-106 BLOOD UREA NITROGEN (test code=BUN) mg/dL 7-18 GLOMERULAR FILTRATION RATE (test code=GFR) mL/min >=60 CREATININE (test code=CREAT) mg/dL 0.7-1.3 BUN/CREATININE RATIO (test code=BUN/CREA) 10-20 CALCIUM (test code=CA) mg/dL 8.5-10.1 CBC W/AUTO [id number] 06:31:00* Test Item Value Reference Range Comments WHITE BLOOD CELL (test code=WBC) 13.4 K/mm3 4.5-12.5 RED BLOOD CELL (test code=RBC) 3.98 mill/mm3 4.0-5.8 HEMOGLOBIN (test code=HGB) 12.2 gram/dL 13.0-17.5 HEMATOCRIT (test code=HCT) 36.7 % 42.0-52.0 MEAN CELL VOLUME (test code=MCV) 92.2 fL 80-98 MEAN CELL HGB (test code=MCH) 30.7 picogram 27.0-33.0 MEAN CELL HGB CONCETRATION (test code=MCHC) 33.2 gram/dL 33.0-36.0 RED CELL DISTRIBUTION WIDTH (test code=RDW) 13.2 % 11.6-16.2 RED CELL DISTRIBUTION WIDTH SD (test code=RDW-SD) 45.1 fL 37.0-51.0 PLATELET COUNT (test code=PLT) 231 K/mm3 150-450 MEAN PLATELET VOLUME (test code=MPV) 9.9 fL 6.7-11.0 NEUTROPHIL % (test code=NT%) 88.0 % 39.0-69.0 IMMATURE GRANULOCYTE % (test code=IG%) 0.7 % 0.0-5.0 LYMPHOCYTE % (test code=LY%) 1.9 % 25.0-55.0 MONOCYTE % (test code=MO%) 9.3 % 0.0-10.0 EOSINOPHIL % (test code=EO%) 0.0 % 0.0-5.0 BASOPHIL % (test code=BA%) 0.1 % 0.0-1.0 NUCLEATED RBC % (test code=NRBC%) 0.0 % 0-0 NEUTROPHIL # (test code=NT#) 11.77 K/mm3 1.8-7.7 IMMATURE GRANULOCYTE # (test code=IG#) 0.10 x10 3/uL 0-0.03 LYMPHOCYTE # (test code=LY#) 0.26 K/mm3 1.0-5.0 MONOCYTE # (test code=MO#) 1.25 K/mm3 0-0.8 EOSINOPHIL # (test code=EO#) 0.00 K/mm3 0.0-0.5 BASOPHIL # (test code=BA#) 0.01 K/mm3 0.0-0.2 NUCLEATED RBC # (test code=NRBC#) 0.00 K/mm3 0.0-0.1 MANUAL DIFF REQUIRED (test code=MDIFF) NO BASIC METABOLIC [id number] 05:58:00* Test Item Value Reference Range Comments SODIUM (test code=NA) 131 mmol/L 136-145 POTASSIUM (test code=K) 4.7 mmol/L 3.5-5.1 CHLORIDE (test code=CL) 96.0 mmol/L 98-107 CARBON DIOXIDE (test code=CO2) 27.0 mmol/L 21-32 ANION GAP (test code=GAP) 12.7 10-20 GLUCOSE (test code=GLU) 126 mg/dL 74-106 BLOOD UREA NITROGEN (test code=BUN) 15 mg/dL 7-18 GLOMERULAR FILTRATION RATE (test code=GFR) > 60 mL/min >=60 Estimated GFR by using Modified MDRD formula.Chronic kidney disease is defined as either kidney damageor GFR <60 mL/min/1.73 m2 for >3 months. CREATININE (test code=CREAT) 0.90 mg/dL 0.7-1.3 BUN/CREATININE RATIO (test code=BUN/CREA) 17.3 10-20 CALCIUM (test code=CA) 9.4 mg/dL 8.5-10.1 CBC W/AUTO [id number] 05:40:00* Test Item Value Reference Range Comments WHITE BLOOD CELL (test code=WBC) 11.1 K/mm3 4.5-12.5 RED BLOOD CELL (test code=RBC) 4.08 mill/mm3 4.0-5.8 HEMOGLOBIN (test code=HGB) 12.3 gram/dL 13.0-17.5 HEMATOCRIT (test code=HCT) 37.6 % 42.0-52.0 MEAN CELL VOLUME (test code=MCV) 92.2 fL 80-98 MEAN CELL HGB (test code=MCH) 30.1 picogram 27.0-33.0 MEAN CELL HGB CONCETRATION (test code=MCHC) 32.7 gram/dL 33.0-36.0 RED CELL DISTRIBUTION WIDTH (test code=RDW) 13.5 % 11.6-16.2 RED CELL DISTRIBUTION WIDTH SD (test code=RDW-SD) 45.5 fL 37.0-51.0 PLATELET COUNT (test code=PLT) 189 K/mm3 150-450 MEAN PLATELET VOLUME (test code=MPV) 10.0 fL 6.7-11.0 NEUTROPHIL % (test code=NT%) 92.1 % 39.0-69.0 IMMATURE GRANULOCYTE % (test code=IG%) 0.7 % 0.0-5.0 LYMPHOCYTE % (test code=LY%) 2.3 % 25.0-55.0 MONOCYTE % (test code=MO%) 4.9 % 0.0-10.0 EOSINOPHIL % (test code=EO%) 0.0 % 0.0-5.0 BASOPHIL % (test code=BA%) 0.0 % 0.0-1.0 NUCLEATED RBC % (test code=NRBC%) 0.0 % 0-0 NEUTROPHIL # (test code=NT#) 10.19 K/mm3 1.8-7.7 IMMATURE GRANULOCYTE # (test code=IG#) 0.08 x10 3/uL 0-0.03 LYMPHOCYTE # (test code=LY#) 0.26 K/mm3 1.0-5.0 MONOCYTE # (test code=MO#) 0.54 K/mm3 0-0.8 EOSINOPHIL # (test code=EO#) 0.00 K/mm3 0.0-0.5 BASOPHIL # (test code=BA#) 0.00 K/mm3 0.0-0.2 NUCLEATED RBC # (test code=NRBC#) 0.00 K/mm3 0.0-0.1 [id number] 19:02:00* Test Item Value Reference Range Comments D-DIMER (test code=DDIMER) 969.00 ng/mLFEU 0-500 Results called to CHARGE NURSE [id number] 05/14/18 1902Critical results verified and read back by Nurse? YClinical Cut-off value for D-Dimer is 500 ng/mL FEU. Comment: The [employer] D-Dimer assay is intended for use asan aid in the diagnosis of venous thromboembolism (VTE)[deep vein thrombosis (DVT) or pulmonary embolism (PE)].The measurement of D-Dimer should not be used as an aid inthe diagnosis of VTE, in patient with: -Therapeutic dose anticoagulant therapy for >24 hours - Fibrinolytic therapy within previous 7 days -Trauma or surgery within previous 4 weeks -Disseminated malignancies -Aortic aneurysm -Sepsis, severe infections, pneumonia, severe skin infections -Liver cirrhosis - - CTA [id number] 19:00:00 Name: BRITT HUDSON [facility] : 1940 Age/S: 78 / M [address] [facility] Unit #: [id number] Loc: [place] [address] Phys: Martinez Carvajal MD Acct: [id number] Dis Date: Status: ADM IN PHONE #: [phone] Exam Date: 05/14/2018 1837 FAX #: [phone] Reason: SOB EXAMS: CPT CODE: [id number] CTA CHEST 09422 REASON FOR EXAM: SOB EXAM ORDER DATE: 05/14/2018 2:37 PM Ordering M.D.: Martinez Carvajal MD PROCEDURE: - CTA CHEST FINDINGS: CT images of the chest were obtained with IV contrast using PE protocol. Reconstructed sagittal and coronal images including 3D reconstructions of the chest were provided for interpretation. Dose reduction techniques were applied. Intravenous contrast: 100c of Omnipaque 370. The heart size is within normal limits. No evidence of pericardial effusion The thoracic aorta is unremarkable. No evidence of dissection or aneurysmal dilatation. No filling defect seen within the main or lobar pulmonary arteries to suggest pulmonary embolus No evidence of mediastinal or hilar adenopathy 1.5 cm calcified granuloma in the left upper lobe. Large bullous emphysema at the lung bases No evidence of pleural effusion IMPRESSION: Moderate dense consolidation of the left lower lobe. Hyperinflated lungs consistent with COPD with large bullous emphysema at the lung bases at 1900 Reported and signed by: Gopi Boles M.D. CC: Jennifer Velarde MD; Pelon Lawrence MD; Martinez Carvajal MD Technologist:Alma Rosa Tafoya RT(R) CTDI: DLP: Trnscb Date/Time: 05/14/2018 (1899) DreVTL Orig Print D/T: S: 05/14/2018 (1902) CTDI: DLP: PAGE 1 Signed Report ARTERIAL BLOOD [id number] 14:17:00* Test Item Value Reference Range Comments ARTERIAL BLOOD GAS PH (test code=PHA) 7.40 7.35-7.45 ARTERIAL BLOOD GAS PCO2 (test code=PCO2A) 37.8 mm Hg 35-45 ARTERIAL BLOOD GAS PO2 (test code=PO2A) 88.1 mmHg 80-100 BICARBONATE TOTAL HCO3 (test code=HCO3) 22.9 mmol/L 23.0-27.0 BASE EXCESS (test code=IMELDA) -1.5 mmol/L -3.0-5.0 ABG O2 SATURATION (test code=SATA) 96.5 % 90.0-98.0 ABG TYPE (test code=TYPEA) Arterial FIO2 (test code=FIO2A) 36.0 ABG SITE (test code=SITEA) Rt RADIAL ARTERY MODIFIED ALLENS (test code=MODALL) Yes CHECK PERFORMED SODIUM (test code=NA/ABG) 128.6 mEq/L 135-148 POTASSIUM (test code=K/ABG) 4.1 mEq/L 3.5-4.5 CHLORIDE (test code=CL/ABG) 94 mEq/L 98-106 GLUCOSE (test code=GLU/ABG) 192 mg/dL 74-99 HEMATOCRIT (test code=HCT/ABG) 42 % 42-52 IONIZED CALCIUM (test code=CAIABG) 1.21 mmol/L 1.1-1.37 TOTAL HGB (test code=THB) 14.3 gram/dL 13.0-17.5 HGB O2 SAT (test code=HBOSAT) 95.7 % 94.00-98.00 CARBOXYHEMOGLOBIN (test code=HOHGBT) 0.4 %totalHg 0.5-1.5 Results called to and read back by Dr. Pereira 14:16 - 05/14/2018; by Cassius METHEMOGLOBIN (test code=METHGB) 0.4 % 0.0-1.50 O2 CONTENT (test code=O2CT) 19.3 % vol 18.0-22.0 B-TYPE NATRIURETIC [id number] 01:23:00* Test Item Value Reference Range Comments B-TYPE NATRIURETIC PEPTIDE (test code=BNP) 136.67 pgram/mL 0-100 CBC W/O [id number] 00:58:00* Test Item Value Reference Range Comments WHITE BLOOD CELL (test code=WBC) 11.7 K/mm3 4.5-12.5 RED BLOOD CELL (test code=RBC) 4.19 mill/mm3 4.0-5.8 HEMOGLOBIN (test code=HGB) 12.7 gram/dL 13.0-17.5 HEMATOCRIT (test code=HCT) 38.5 % 42.0-52.0 MEAN CELL VOLUME (test code=MCV) 91.9 fL 80-98 MEAN CELL HGB (test code=MCH) 30.3 picogram 27.0-33.0 MEAN CELL HGB CONCETRATION (test code=MCHC) 33.0 gram/dL 33.0-36.0 RED CELL DISTRIBUTION WIDTH (test code=RDW) 13.2 % 11.6-16.2 PLATELET COUNT (test code=PLT) 155 K/mm3 150-450 MEAN PLATELET VOLUME (test code=MPV) 10.2 fL 6.7-11.0 BASIC METABOLIC [id number] 00:45:00* Test Item Value Reference Range Comments SODIUM (test code=NA) 127 mmol/L 136-145 POTASSIUM (test code=K) 4.3 mmol/L 3.5-5.1 CHLORIDE (test code=CL) 92.0 mmol/L 98-107 CARBON DIOXIDE (test code=CO2) 27.0 mmol/L 21-32 ANION GAP (test code=GAP) 12.3 10-20 GLUCOSE (test code=GLU) 127 mg/dL 74-106 BLOOD UREA NITROGEN (test code=BUN) 11 mg/dL 7-18 GLOMERULAR FILTRATION RATE (test code=GFR) > 60 mL/min >=60 Estimated GFR by using Modified MDRD formula.Chronic kidney disease is defined as either kidney damageor GFR <60 mL/min/1.73 m2 for >3 months. CREATININE (test code=CREAT) 0.80 mg/dL 0.7-1.3 BUN/CREATININE RATIO (test code=BUN/CREA) 13.5 10-20 CALCIUM (test code=CA) 9.8 mg/dL 8.5-10.1 [id number] 00:45:00* Test Item Value Reference Range Comments TROPONIN-I (test code=TROPI) <0.015 ng/mL 0-0.045 BASIC METABOLIC [id number] 00:41:00* Test Item Value Reference Range Comments SODIUM (test code=NA) 127 mmol/L 136-145 POTASSIUM (test code=K) 4.3 mmol/L 3.5-5.1 CHLORIDE (test code=CL) 92.0 mmol/L 98-107 CARBON DIOXIDE (test code=CO2) mmol/L 21-32 ANION GAP (test code=GAP) 10-20 GLUCOSE (test code=GLU) mg/dL 74-106 BLOOD UREA NITROGEN (test code=BUN) mg/dL 7-18 GLOMERULAR FILTRATION RATE (test code=GFR) mL/min >=60 CREATININE (test code=CREAT) mg/dL 0.7-1.3 BUN/CREATININE RATIO (test code=BUN/CREA) 10-20 CALCIUM (test code=CA) mg/dL 8.5-10.1 [id number] 00:41:00* Test Item Value Reference Range Comments TROPONIN-I (test code=TROPI) ng/mL 0-0.045 - XR CHEST 2 [id number] 00:41:00 FAX: Pelon Herrera MD [phone] [place]: [address] St: PRE FAX: Bereket Chow Name: BRITT HUDSON [facility] : 1940 Age/S: 78/M [address] [facility] Unit #: [id number] Loc: [place] [address] Phys: Bereket Chow MD Acct: [id number] Dis Date: Status: PRE ER PHONE #: [phone] Exam Date: 05/14/2018 003 FAX #: [phone] Reason: CHEST PAIN EXAMS: CPT CODE: [id number] XR CHEST 2 V 60760 LOCATION: Q15 HISTORY: 78-year-old male who presents with chest pain and dyspnea. COMMENT: Frontal and lateral chest radiographs were examined. The lungs are considerably emphysematous. There is patchy infiltrate seen in the left lung base ra ising concern for developing left lower lobe pneumonia. A la rge calcified granulomas seen in the left apex. The cardiac silhou ette, keren, and mediastinum are unremarkable. The skeleton and soft tissue s are unremarkable. IMPRESSION: Left lower lob e pneumonia is suspected in this patient's chest. This finding is superi mposed on considerable emphysematous lungs. Also noted are fin dings of prior exposure to granulomatous disease. Electron ically Signed by Rico Dubon M.D. on 05/14/2018 at 0041 Reported and signed by: Rico paredes M.D. CC: Pelon Lawrence MD; Bereket Chow MD Technologist: Eleanor Santillan Trnscrd Da te/Time/By: 05/14/2018 (004) : By: [email or web address] Orig Print D/T: S: 05/14 (0040) PAGE 1 Signed Report
--- NOTE | 2018-06-25 15:36 | Diagnostic Imaging Report ---
EXAMINATION: CHEST SINGLE (PORTABLE) INDICATION: Cough. Shortness of breath ^sob COMPARISON: None FINDINGS: TUBES and LINES: None. LUNGS: Lungs are well inflated. Perihilar peribronchial hazy opacity with more focal opacity in the left lung base worrisome for pneumonia PLEURA: No pleural effusion or pneumothorax. HEART AND MEDIASTINUM: The cardiomediastinal silhouette is unremarkable. BONES AND SOFT TISSUES: No acute osseous lesion. Soft tissues are unremarkable. UPPER ABDOMEN: No free air under the diaphragm. IMPRESSION: Perihilar peribronchial hazy opacity with more focal opacity in the left lung base worrisome for pneumonia. Follow-up imaging is indicated to document clearing. Signed by: Dr. Mane Lakhani M.D. on 06/25/2018 3:32 PM
[2018-06-25] MEDS ORDERED: SODIUM CHLORIDE 0.9% 1000ML 1,000 ML IV SCH (15:44)
[2018-06-25] MEDS ORDERED: ASPIRIN 81 MG CHEW TAB PO ONE (15:45)
[2018-06-25] MEDS ORDERED: LEVOFLOXACIN 750MG/D5W 150ML IV SCH (15:45)
[2018-06-25] MEDS ORDERED: VANCOMYCIN HCL 1GM/NS 250 ML BAG IV SCH (15:45)
[2018-06-25] MEDS ORDERED: LEVOFLOXACIN 750MG/D5W 150ML 150 ML IV SCH (16:15)
[2018-06-25] MEDS ORDERED: VANCOMYCIN 1GM/NS 250 ML 250 ML IV SCH ×2 (17:00→20:00)
[2018-06-25 17:42] LABS: BASOPHILS % 0.1 % (0.0-1.0); EOSINOPHILS % 0.1 % (0.0-6.0); HEMATOCRIT 29.6 % (38.2-49.6); HEMOGLOBIN 9.4 g/dL (14.0-18.0); LYMPHOCYTES # (AUTO) 0.9 (1.0-3.2); LYMPHOCYTES % 9.9 % (18.0-39.1); MEAN CORPUSCULAR HEMOGLOBIN 30.7 pg (28-32); MEAN CORPUSCULAR HGB CONC 31.8 g/dL (31-35); MEAN CORPUSCULAR VOLUME 96.7 fL (81-99); MONOCYTES # (AUTO) 0.6 (0.2-0.8); NEUTROPHILS # (AUTO) 7.8 (2.1-6.9); NEUTROPHILS % 83.4 % (38.7-80.0); PLATELET COUNT 217 x10e3/uL (140-360); RED BLOOD COUNT 3.06 x10e6/uL (4.3-5.7); RED CELL DISTRIBUTION WIDTH 14.6 % (11.7-14.4)
[2018-06-25 18:03] VITALS: BP 124/66
--- NOTE | 2018-06-25 18:05 | NUR ---
RECEIVED PATIENT FROM ER TO ROOM 287. PATIENT IS IN STABLE CONDITION. FAMILY AT BEDSIDE. ADMISSION HISTORY AND INITIAL PHYSICAL ASSESSMENT COMPLETED. PATIENT ORIENTED TO ROOM AND POLICIES. CALL LIGHT WITHIN REACH. BED IN THE LOWEST POSITION.
[2018-06-25 18:07] LABS: ALANINE AMINOTRANSFERASE 38 IU/L (0-55); ALBUMIN/GLOBULIN RATIO 0.8 (0.8-2.0); ALKALINE PHOSPHATASE 106 IU/L (40-150); ANION GAP 13.2 mmol/L (8-16); BLOOD UREA NITROGEN 21 mg/dL (7-26); BUN/CREATININE RATIO 21 (6-25); CALCIUM 9.4 mg/dL (8.4-10.2); CARBON DIOXIDE 29 mmol/L (22-29); CHLORIDE 100 mmol/L (98-107); EST GLOMERULAR FILTRATION RATE > 60 ML/MIN (60-); GLUCOSE 107 mg/dL (74-118); POTASSIUM 4.2 mmol/L (3.5-5.1); SODIUM 138 mmol/L (136-145)
[2018-06-25 18:14] LABS: CREATINE KINASE MB 1.2 ng/mL (0-5.0)
[2018-06-25 18:16] VITALS: BP 124/66
[2018-06-25] MEDS ORDERED: PROVENTIL HFA6.7 GM INH (18:28)
[2018-06-25] MEDS ORDERED: APIXABAN PO (18:28)
[2018-06-25] MEDS ORDERED: BROMFED DM COU118 ML PO (18:28)
[2018-06-25] MEDS ORDERED: METOPROLOL TART25 MG PO (18:28)
[2018-06-25] MEDS ORDERED: LASIX20 MG PO (18:28)
[2018-06-25] MEDS ORDERED: DILTIAZEM HCL30 MG PO (18:28)
[2018-06-25] MEDS ORDERED: SINGULAIR10 MG PO (18:28)
[2018-06-25] MEDS ORDERED: ADVAIR 250-501 EACH INH (18:28)
[2018-06-25] MEDS ORDERED: SODIUM CHLORIDE1 GM PO (18:28)
[2018-06-25] MEDS ORDERED: ASPIRIN81 MG PO (18:28)
[2018-06-25] MEDS ORDERED: LORAZEPAM0.5 MG PO (18:28)
[2018-06-25] MEDS ORDERED: FLOMAX0.4 MG PO (18:28)
[2018-06-25] MEDS ORDERED: OMEPRAZOLE40 MG PO (18:28)
[2018-06-25] MEDS ORDERED: SPIRIVA18 MCG INH (18:28)
[2018-06-25 18:42] VITALS: BP 124/66
--- NOTE | 2018-06-25 19:15 | NUR ---
Received patient awake, not in distress, family members at the bedside. Call light within easy reach, advised to call for assistance when needed. Will continue to monitor
--- NOTE | 2018-06-25 19:38 | NUR ---
REPORT GIVEN TO ONCOMING NURSE. PATIENT IS SITTING UP IN BED. NO ACUTE DISTRESS NOTED. CALL LIGHT WITHIN REACH. BED IN THE LOWEST POSITION.
[2018-06-25 20:00] VITALS: BP 152/85
[2018-06-25 21:00] VITALS: BP 152/85
[2018-06-25] MEDS: METHYLPREDNISOLONE SOD SUCC 40 MG/ML VIAL 1ML IV SCH (21:50)
[2018-06-25] MEDS: CEFEPIME 2 GM/NS 0.9% 100 ML 100 ML IV SCH (22:00)
[2018-06-25] MEDS ORDERED: CEFEPIME HCL 2 GM/SOD CHL 0.9% 100 ML BAG IV SCH (22:00)
--- NOTE | 2018-06-25 22:08 | Consultation ---
DATE OF CONSULTATION: 06/25/2018 Pulmonary consultation. REASON FOR THE CONSULT: Shortness of breath and wheezing. HISTORY OF PRESENT ILLNESS: Mr. Nazario is a 78-year-old male who presented to the emergency room with increasing green phlegm production and cough, shortness of breath going on for the last few days. He has a history of severe COPD. He simply was seen in the office by me. The patient also has congestive heart failure and there was recent admission almost 2 to 3 weeks ago at [facility] with COPD exacerbation. He denies any complaints of chest pain, nausea, or vomiting. REVIEW OF SYSTEMS: GENERAL: Denies any fever or chills. HEAD: Denies any head trauma. ENT: Denies any earache. CVS: Denies any chest pain. RESPIRATORY: Shortness of breath, wheezing. PAST MEDICAL HISTORY: COPD, congestive heart failure. FAMILY AND SOCIAL HISTORY: Smoking history for almost 50 years, recently quit. PHYSICAL EXAMINATION: VITAL SIGNS: Temperature 95.3, pulse of 114, blood pressure 124/66, respiratory rate of 18. HEENT: Head is atraumatic, normocephalic. NECK: Supple. CHEST: Markedly reduced air entry bilaterally. HEART: S1, S2 audible. ABDOMEN: Soft, nontender. EXTREMITIES: No clubbing, cyanosis, or edema. NEUROLOGIC: Awake and alert. LABORATORY DATA: White count of 9.3, hemoglobin 9.4, platelets 217. Chemistries within normal limits. Chest x-ray showing left lower lobe opacity. ASSESSMENT: Mr. Nazario is a 78-year-old male who presented to the emergency room with shortness of breath, found to have left lower lobe pneumonia, has 60-pack year smoking history. Current problems: 1. Left lower lobe pneumonia. 2. Severe COPD. 3. Smoker. 4. Chronic hypoxic respiratory failure. PLAN: 1. I will continue the patient on IV cefepime and Levaquin is ordered as patient will be treated for hospital-acquired pneumonia. 2. I will also order nebulizer treatment, IV Solu-Medrol and oxygen and sputum culture. Thank you for this consult. MD BIMAL Chance/VIKTORIYA /[id number]
[2018-06-26] VITALS (8 sets, daily range): BP systolic 110–137; BP diastolic 35–80
[2018-06-26] MEDS: METHYLPREDNISOLONE SOD SUCC 40 MG/ML VIAL 1ML IV SCH ×3 (05:32→21:32)
[2018-06-26] MEDS: CEFEPIME 2 GM/NS 0.9% 100 ML 100 ML IV SCH (05:32)
--- NOTE | 2018-06-26 06:50 | NUR ---
updated Dr. Natanael daley INR level of 8.04, with orders to give Vitamin K 5mg tab orally x one dose. Addendum: 06/26/18 at 0716 by JUDE KEATING RN wrong chart- deleted
--- NOTE | 2018-06-26 07:00 | NUR ---
RECEIVED PATIENT RESTING IN BED. NO ACUTE DISTRESS NOTED. FAMILY AT BEDSIDE. CALL LIGHT WITHIN REACH. BED IN THE LOWEST POSITION.
[2018-06-26] MEDS: APIXABAN 5 MG TABLET PO SCH ×2 (11:00→16:16)
[2018-06-26] MEDS: DILTIAZEM HCL 30 MG TAB PO SCH ×2 (11:00→16:16)
[2018-06-26] MEDS ORDERED: METOPROLOL TARTRATE 25 MG TAB PO SCH (11:00)
[2018-06-26] MEDS ORDERED: DILTIAZEM HCL 30 MG TAB ONE (11:14)
[2018-06-26] MEDS ORDERED: METOPROLOL TARTRATE 25 MG TAB ONE (11:15)
[2018-06-26] MEDS ORDERED: APIXABAN 5 MG TABLET ONE (11:15)
--- NOTE | 2018-06-26 11:15 | NUR ---
CASE MANAGEMENT INITIAL ASSESSMENT Cracking Machine Operator to bedside to discuss plan of care with patient/family. CM/SW role and care transitions discussed. Anticipated discharge plan discussed along with duration of care. CM/SW discussed patients right to make decisions in care. CM/SW work hours given. DEMOGRAPHIC SHEET IS INCORRECT, AND BUSINESS OFFICE NOTIFIED CORRECT: [address], [place], [place] [address] Patient lives: WITH HIS 2 DAUGHTERS; DAUGHTER JIMBO INTERPRETED AND GAVE INFORMATION. PT SPEAKS GEORGIAN Admit/Transfer: ER Hospital/ER visits since last admit:2 WEEKS AGO AT [facility] WITH PNEUMONIA AND WEAKNESS POA/Emergency contact: DAUGHTER: JIMBO HUDSON (BILINGUAL) [phone] Current/Previous Home Health: NONE PCP/Follow-up Care: DR. GERRY HERRMANN Current/Previous DME: HOME OXYGEN W/ APRIA Medications (referring to index hospitalization or the first time you were in the hospital) a. Were changes made in your medications when you were in the hospital on [date of index hospitalization]? Yes No X Not sure Explain: Note: If no or not sure, please skip to question d b. Did you understand the changes? Yes No Explain: c. Were you able to obtain your new medications right away? Yes No n/a SNF only Explain: d. Were you able to take your medications like the doctor wanted you to? X Yes No Explain: e. Did the hospital give you an accurate, easy to understand list of medications when you left? X Yes No n/a SNF only Explain: Scale of 1-10 how comfortable does patient feel with disease management in outpatient setting: (DAUGHTER) 10, SHE KEEPS A NOTEBOOK WITH WRITTEN RECORD AND NOTES Other Services: Employment Status: RETIRED Areas of Concerns: NONE Referral Needs: NONE Education Needs: NONE IMM/COLINDRES given and signed (if applicable): NONE Goal for discharge: TO RETURN HOME TO DAUGHTERS CM/SW left business card at the bedside with contact information. Name and number was also written on the patients whiteboard. Patient verbalized understanding of discussion. CM will follow-up with ongoing discharge and transition of care needs.
[2018-06-26] MEDS ORDERED: SODIUM CHLORIDE 0.9% 250ML 250 ML ONE (11:16)
[2018-06-26] MEDS ORDERED: PANTOPRAZOLE SOD 40 MG TABEC ONE (11:16)
[2018-06-26] MEDS: PANTOPRAZOLE SOD 40 MG TABEC PO SCH (11:22)
[2018-06-26] MEDS: AZITHROMYCIN 250MG/NS 100 ML 100 ML IV SCH (11:30)
--- NOTE | 2018-06-26 13:36 | NUR ---
Nutrition Intervention Note RD Recommendation(s) for Physician: Please consider liberalizing diet to a regular diet to promote PO intake Plan of Care: RD following, monitoring for tolerance and adequacy Nutrition reason for involvement: Nutrition Risk Trigger - MST RD Assessment Initial encounter with patient. Pt is Armenian speaking. Daughter and RN present at time of visit and translated for the RD. Pt with involuntary wt loss during last hospital stay of 2-3 weeks. Pt experienced GI upset and mouth sores which decreased Po intake and led to wt loss. Pt is also bed bound. Pt has missing teeth, but denies any difficulty chewing or swallowing. Daughter states that Pt has been eating better and has gained 3 pounds, however, Pt has had edema. Willing to try Ensure supplement. Will send with meals TID. Po intake has improved per daughter. Pt ate about 75% of meal. Pt with hollow orbitals, temporal wasting, prominent clavicle, ribs, acromion process, scapula, loss of lean body mass noted in bilateral upper and lower extremities. Principal Problems/Diagnoses: HCAP PMH:COPD GERD, Diverticulitis, heart failure IVF: None GI:soft non tender Skin: Intact Labs: (06/26/2018) lab results reviewed Meds: (06/26/2018) MAR reviewed Malnutrition Evaluation (06/26/2018) The patient meets criteria for unspecified SEVERE protein-calorie malnutrition. Energy intake: <75% of estimated energy requirements for >1 month Weight loss: > 5% in 1 month (Chronic) Fat loss: Severe Muscle loss:Severe Supporting Evidence: Fluid accumulation: Mild, Functional Status: measurably reduced Diet Education Needs Assessment: Diet education not indicated. Ht:68 Wt:115lbs BMI:17.5kg/m2 IBW:140lbs Estimated Nutritional Needs: 1306 - 1829 kcals at 25-35 kcals/kg/bw 52-78g of protein at 1-1.5g/kg/bw Nutrition Prescription (Diet Order): Cardiac diet Food Allergies: No known food allergies Diet Adequacy: Meeting calorie needs, Meeting protein needs, Meeting fluid needs Tolerance: Tolerating PO Nutrition Care Level: moderate Nutrition Diagnosis: Malnutrition relate to chronic illness as evidenced by a BMI of 17.5 Goal:Patient will meet 75-100% of estimated needs by follow up Progress: Progressing Interventions: General healthful diet, Schedule of food, Commercial beverage Monitoring/Evaluation: Total energy intake, Total protein intake, Liquid supplement, Weight change. Gerhard High RD, [place], [facility] Addendum: 06/26/18 at 1426 by Gerhard High DIET IBW 154lbs
[2018-06-26] MEDS: MEROPENEM 500MG/ NS 50ML 50 ML IV SCH ×2 (13:44→21:32)
[2018-06-26] MEDS: LEVALBUTEROL HCL SOLN NEBU 0.63 MG/3 ML NEB INH SCH ×2 (13:48→19:35)
--- NOTE | 2018-06-26 13:49 | Diagnostic Imaging Report ---
EXAM: CT Chest WITHOUT contrast 06/26/2018 10:09 AM INDICATION: ^PNEUMONIA ^[id number] ^[id number] COMPARISON: Chest radiograph 06/25/2018 TECHNIQUE: Chest was scanned utilizing a multidetector helical scanner from the lung apex through the level of the adrenal glands without administration of IV contrast. Absence of intravenous contrast decreases sensitivity for detection of lymphadenopathy and vascular pathology. Coronal and sagittal reformations were obtained. Routine protocol was performed. IV CONTRAST: None COMPLICATIONS: None RADIATION DOSE: Total DLP: 342.7 mGy*cm Estimated effective dose: (DLP x 0.015 x size factor) mSv CTDIvol has been reviewed. It is below the limits set by the Radiation Protocol Committee (RPC). FINDINGS: LINES/ TUBES: None. LUNGS AND AIRWAYS: Extensive bilateral upper lobe predominant centrilobular emphysema. Large bullous changes in both lower lobes, measuring up to 8.4 cm on the right. Mild left apical pleuroparenchymal scarring with adjacent multiple left upper lobe calcified granulomas consistent with sequela of prior granulomatous disease. Subpleural reticulation of the lungs in the peripheral left and right upper lobe greater than lower lobes suggestive of emphysema related mild pulmonary fibrosis. Bilateral posterior lower lobes consolidations with air bronchogram and adjacent bronchiectasis with peribronchial wall thickening without significant volume loss. There is a punctate calcification in the consolidation on the right. Mild bilateral central lung bronchiectasis with diffuse areas of peribronchial wall thickening. PLEURA: Trace right lower lobe pleural effusion. No pneumothorax. HEART AND MEDIASTINUM: The thyroid gland is normal. Indeterminate right lower paratracheal 1.2 cm lymph node on series 2, image 70. The heart is normal in size. Small pericardial effusion. Coronary artery calcifications. Severe calcification of the aortic valve. The thoracic aorta is normal in caliber and associated with mild calcifications in the aortic arch. The main pulmonary artery is normal in caliber measuring 2.3 cm in diameter. UPPER ABDOMEN: Unremarkable. BONES: The visualized bony thorax is within normal limits. SOFT TISSUES: Unremarkable. IMPRESSION: 1. Extensive bilateral emphysema with emphysema related mild pulmonary fibrosis. 2. Sequela of prior granulomatous disease in the left upper lobe. 3. Bilateral lower lobe consolidations with air bronchogram and punctate calcification on the right consolidation. In the acute setting, this is highly suggestive of multifocal pneumonia. In the chronic setting, this may represent organizing pneumonia from sequela of prior granulomatous disease. Recommend follow-up CT chest without contrast in 6-8 weeks. If not resolution, recommend pulmonary consultation for possible biopsy. Signed by: Dr. Jacey Murillo M.D. on 06/26/2018 1:45 PM
--- NOTE | 2018-06-26 16:11 | Consultation ---
DATE OF CONSULTATION: 06/26/2018 Cardiology Consultation CONSULTING PHYSICIAN: Dylan Lora MD, Interventional Cardiology. REASON FOR CONSULTATION: Shortness of breath. HISTORY OF PRESENT ILLNESS: Mr. Nazario is a pleasant 78-year-old man, well known to me. He has history of paroxysmal atrial fibrillation, chronic diastolic heart failure, and severe COPD. He presents with a 2-3 day onset of worsening shortness of breath and cough, subjective fevers, found to have multilobar pneumonia for which he is admitted and undergoing antibiotic therapy with azithromycin, meropenem in addition to inhalers and steroids IV. He does not report any lower extremity edema on this admission, which he has had previous admissions with decompensated diastolic heart failure. He is adhering to Eliquis for thromboembolic risk prevention for his AFib. He denies any chest pain and has otherwise no current complaints. REVIEW OF SYSTEMS: Twelve system review is negative except for as noted above. PAST MEDICAL HISTORY: Significant for hypertension, paroxysmal atrial fibrillation, chronic diastolic heart failure, and COPD as well as anemia. SOCIAL HISTORY: No current smoking. Denies alcohol or drugs. FAMILY HISTORY: Noncontributory. Good family support. PHYSICAL EXAMINATION: VITAL SIGNS: Temperature 96.6, heart rate 86, respiratory rate 20, blood pressure 110/35, and O2 saturation 96%. BMI is 17.4. GENERAL: In no acute distress, alert. NECK: No JVD. CHEST: With decreased breath sounds and scattered rales in bilateral bases in addition to scattered rhonchi. CARDIOVASCULAR: Regular rate and rhythm. Normal S1, S2. No S3 or S4. ABDOMEN: Soft, nontender, nondistended. EXTREMITIES: No edema. SKIN: Intact. NEUROLOGIC: Nonfocal. CARDIOVASCULAR MEDICATIONS: Methylprednisolone 10 mg every 8 hours, tamsulosin 0.4 mg at bedtime, metoprolol tartrate 25 mg daily changed to extended release, diltiazem 30 mg b.i.d., Eliquis 5 mg every 12 hours, tiotropium, montelukast, lorazepam, Solu-Medrol, fluticasone, guaifenesin, dextromethorphan, pantoprazole, azithromycin, meropenem, levalbuterol. STUDIES: Sodium 138, potassium 4.2, chloride 100, bicarbonate 29, BUN 21, creatinine 1, glucose 107. White blood cells 9.3, hemoglobin 9.4, platelets 217. AST 26, ALT 38, total bilirubin 0.7, alkaline phosphatase 106. ASSESSMENT: A 78-year-old man with paroxysmal atrial fibrillation and chronic diastolic heart failure, presenting with acute pneumonia in the setting of severe chronic obstructive pulmonary disease. RECOMMENDATIONS: 1. Continue current cardiovascular medications. 2. Agree with antibiotics. 3. Incentive spirometry. MD VALDEZ Gomez/MODL /[id number]
--- NOTE | 2018-06-26 16:52 | History and Physical ---
PRIMARY CARE PHYSICIAN: Dr. Sandro Grayson. CONSULTANTS: 1. Dr. Prerna Marinelli. 2. Dr. Dylan Lora. CHIEF COMPLAINT: Increased productive cough, shortness of breath, and atrial fibrillation with rapid ventricular rate or response. 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 Last admission was approximately two weeks ago at [facility] where the patient was staying with the two admission in May. The patient came in with productive cough and with increased heart rate greater than 120 with atrial fibrillation. He was diagnosed with paroxysmal atrial fibrillation recently, was placed on anticoagulation by Dr. Lora. The patient came in at this time with increasing productive cough and not feeling well, generalized weakness. His preliminary workup in the emergency room had a chest x-ray done, found that he had perihilar bronchial hazy opacity with more focal opacity in the left lung. The patient was placed on antibiotics and admitted. PAST MEDICAL HISTORY: 1. Advanced COPD with progressive weight loss. Chronic kidney disease. Recent two admission to the hospital with pneumonia. 2. Atrial fibrillation, on anticoagulant therapy. 3. Hypertension, enlarged prostate. PAST SURGICAL HISTORY: Noncontributory. SOCIAL HISTORY: The patient quit smoking approximately seven years ago. No alcohol consumption. Very well family support. ALLERGIES: NO KNOWN ALLERGIES. MEDICATIONS: Home medications: 1. Albuterol. 2. Aspirin. 3. Cough medication. 4. Diltiazem. 5. Advair. 6. Lasix. 7. Ativan. 8. Metoprolol tartrate. 9. Singulair. 10. Omeprazole. 11. Sodium chloride for hyponatremia. 12. Flomax and Spiriva. 13. Eliquis 5 mg twice a day. PHYSICAL EXAMINATION: VITAL SIGNS: Temperature is 98, blood pressure 137/63, pulse rate 124, and respirations 22. GENERAL: The patient seems weak, but he is not in any respiratory distress. HEENT: Normocephalic and atraumatic. Anicteric. NECK: Supple grossly. PULMONARY: Diminished breath sounds bilaterally with coarse and rhonchi. Diminished air entry and excursion. CARDIOVASCULAR: Tachycardia, atrial fibrillation. ABDOMEN: Soft, cachexia. EXTREMITIES: No cyanosis or edema. NEUROLOGIC: No gross focal deficit. Moving all extremities. LABORATORY DATA: Sodium is 138, potassium 4.2, chloride 100, bicarb 29, BUN 21, creatinine 1.5, and glucose 107. WBC is 9.3, hemoglobin 9.4, hematocrit 29.6, and platelets is 217. Chest x-ray is left upper lobe infiltrate. IMPRESSION: 1. Recurrent pneumonia. At this time, it could be healthcare-acquired pneumonia. 2. Baseline cachexia with progressive weight loss and chronic protein-calorie deficit malnutrition with BMI of 17.5 and weight of 115 pounds. Height of 5 feet 8 inches. 3. Uupqy-hd-mhlmivh hypoxia. 4. Atrial fibrillation with rapid ventricular rate or response. 5. Anticoagulant therapy. 6. Baseline hypertension and multiple other chronic medical problems. PLAN: Nebulizer treatments. IV steroids. Antibiotics. Consultation with Dr. Prerna Marinelli. Consultation with Dr. Lora. Resume some home medication. Anticoagulant therapy. MD MICK Barros/MODL /[id number]
--- NOTE | 2018-06-26 19:10 | NUR ---
REPORT GIVEN TO ONCOMING NURSE. PATIENT IS RESTING IN BED. NO ACUTE DISTRESS NOTED. DENIES PAIN OR DISCOMFORT. DAUGHTER AT BEDSIDE. CALL LIGHT WITHIN REACH. BED IN THE LOWEST POSITION.
--- NOTE | 2018-06-26 19:30 | NUR ---
patient received awake, alert, sitting up on side of bed. no c/o pain noted. respirations even and unlabored. 3l/nc in use. pm assessment complete. daughter noted at the bedside. patient/daughter instructed to call for assistance when needed.
[2018-06-26] MEDS: SALMETEROL/FLUTICASONE 250/50 INH SCH (19:35)
[2018-06-26 20:00] LABS: CREATINE KINASE MB 1.2 ng/mL (0-5.0)
[2018-06-26] MEDS: TAMSULOSIN HCL 0.4 MG CAP PO SCH (20:32)
[2018-06-26] MEDS: MONTELUKAST SODIUM 10 MG TAB PO SCH (21:00)
[2018-06-26] MEDS: LORAZEPAM 0.5 MG TAB PO PRN (22:30)
[2018-06-26] MEDS: GUAIFENESIN/DEXTROMETHORPHAN LIQD 5 ML UDC PO PRN (22:30)
--- NOTE | 2018-06-26 22:30 | NUR ---
patient medicated with robitussin dm 5 cc po for c/o cough and ativan 0.5 mg po for c/o anxiety at this time.
[2018-06-27] VITALS (9 sets, daily range): BP systolic 125–159; BP diastolic 58–84
--- NOTE | 2018-06-27 01:15 | NUR ---
cardiac markers drawn and sent to lab at this time. Addendum: 06/27/18 at 0203 by Radha Correa RN error--wrong patient.
[2018-06-27] MEDS: LEVALBUTEROL HCL SOLN NEBU 0.63 MG/3 ML NEB INH SCH ×4 (02:15→20:00)
--- NOTE | 2018-06-27 02:30 | NUR ---
patient appears to be resting quietly. no distress noted. family remains at the bedside.
[2018-06-27] MEDS: METHYLPREDNISOLONE SOD SUCC 40 MG/ML VIAL 1ML IV SCH ×3 (05:23→22:43)
[2018-06-27] MEDS: MEROPENEM 500MG/ NS 50ML 50 ML IV SCH ×3 (05:23→22:43)
[2018-06-27 06:06] LABS: BASOPHILS % 0.1 % (0.0-1.0); HEMATOCRIT 27.2 % (38.2-49.6); HEMOGLOBIN 8.7 g/dL (14.0-18.0); LYMPHOCYTES # (AUTO) 0.5 (1.0-3.2); LYMPHOCYTES % 5.7 % (18.0-39.1); MEAN CORPUSCULAR HEMOGLOBIN 30.2 pg (28-32); MEAN CORPUSCULAR VOLUME 94.4 fL (81-99); MONOCYTES # (AUTO) 0.3 (0.2-0.8); MONOCYTES % 4.2 % (4.4-11.3); NEUTROPHILS % 89.4 % (38.7-80.0); PLATELET COUNT 228 x10e3/uL (140-360); RED BLOOD COUNT 2.88 x10e6/uL (4.3-5.7); RED CELL DISTRIBUTION WIDTH 14.3 % (11.7-14.4)
[2018-06-27 06:19] LABS: ANION GAP 11.8 mmol/L (8-16); BLOOD UREA NITROGEN 18 mg/dL (7-26); BUN/CREATININE RATIO 21 (6-25); CALCIUM 9.1 mg/dL (8.4-10.2); CARBON DIOXIDE 26 mmol/L (22-29); CHLORIDE 103 mmol/L (98-107); CREATININE, SERUM 0.86 mg/dL (0.72-1.25); EST GLOMERULAR FILTRATION RATE > 60 ML/MIN (60-); GLUCOSE 143 mg/dL (74-118); POTASSIUM 3.8 mmol/L (3.5-5.1); SODIUM 137 mmol/L (136-145)
[2018-06-27] MEDS: TIOTROPIUM 18 MCG INH POWDER INH SCH (06:50)
[2018-06-27] MEDS: SALMETEROL/FLUTICASONE 250/50 INH SCH ×2 (06:50→20:00)
--- NOTE | 2018-06-27 06:52 | NUR ---
RECEIVED PATIENT RESTING IN BED. NO ACUTE DISTRESS NOTED. FAMILY MEMBER AT BEDSIDE. DENIES PAIN OR DISCOMFORT. CALL LIGHT WITHIN REACH. BED IN THE LOWEST POSITION.
[2018-06-27] MEDS: PANTOPRAZOLE SOD 40 MG TABEC PO SCH (09:00)
[2018-06-27] MEDS: SODIUM CHLORIDE 1 GM TAB PO SCH (09:01)
[2018-06-27] MEDS: APIXABAN 5 MG TABLET PO SCH ×2 (09:01→16:21)
[2018-06-27] MEDS: METOPROLOL SUCCINATE 25 MG TAB XL PO SCH (09:01)
[2018-06-27] MEDS: DILTIAZEM HCL 30 MG TAB PO SCH ×2 (09:01→16:21)
--- NOTE | 2018-06-27 09:50 | NUR ---
NOTIFIED DR. GIBBS OF PATIENT'S ELEVATED HR WHILE AMBULATING. PER MD DUE TO PNEUMONIA AND COPD PATIENT'S HR WILL GO UP WITH AMBULATION. NOTIFY HIM IF HR GOES UP WHILE RESTING FOR FURTHER ORDERS.
[2018-06-27] MEDS: FUROSEMIDE 20 MG TAB PO SCH (10:09)
[2018-06-27] MEDS: GUAIFENESIN/DEXTROMETHORPHAN LIQD 5 ML UDC PO PRN (10:10)
[2018-06-27 10:13] LABS: BAND NEUTROPHILS % (MANUAL) 10 %; LYMPHOCYTES % (MANUAL) 5 % (19-48); MONOCYTES % (MANUAL) 3 % (3.4-9.0); NEUTROPHILS % (MANUAL) 82 % (40-74)
[2018-06-27 10:14] LABS: PLATELET ESTIMATE ADEQUATE; PLATELET MORPHOLOGY COMMENT NORMAL; RBC MORPHOLOGY COMMENT NORMAL
[2018-06-27] MEDS: AZITHROMYCIN 250MG/NS 100 ML 100 ML IV SCH (11:56)
[2018-06-27] MEDS: GUAIFENESIN/CODEINE 10 ML CUP PO PRN ×3 (14:08→22:43)
--- NOTE | 2018-06-27 14:25 | Progress Note ---
DATE: 06/27/2018 Cardiology Progress Note SUBJECTIVE: No complaints. OBJECTIVE: VITAL SIGNS: Temperature 97.2, heart rate 127, respiratory rate 18, blood pressure 129/58, and O2 saturation 100% on 2 L/minute nasal cannula. GENERAL: No acute distress, alert. NECK: No JVD. CHEST: With decreased breath sounds, scattered rhonchi, bibasilar rales. CARDIOVASCULAR: Regular rate and rhythm. Normal S1, S2. ABDOMEN: Soft. EXTREMITIES: 1+ edema. CARDIOVASCULAR MEDICATIONS: Reviewed. Resuming furosemide 20 mg p.o. daily, metoprolol succinate 25 mg daily, Eliquis 5 mg every 12 hours, and Cardizem 30 mg b.i.d. Antibiotics. STUDIES: Reviewed. White blood cells 7.8, hemoglobin 8.7, platelets 228. Sodium 137, potassium 3.8, chloride 103, bicarbonate 26, BUN 18, creatinine 0.86, glucose 143. Serial cardiac enzymes negative x3. ASSESSMENT: 1. Pneumonia. 2. Chronic obstructive pulmonary disease, severe. 3. Paroxysmal atrial fibrillation. 4. Hypertension. 5. Chronic diastolic heart failure. RECOMMENDATIONS: 1. Continue current cardiovascular medications. 2. Add Lasix 20 mg p.o. daily starting today. MD VALDEZ Gomez/VIKTORIYA /[id number]
--- NOTE | 2018-06-27 19:23 | NUR ---
REPORT GIVEN TO ONCOMING NURSE, PATIENT IS RESTING IN BED. NO ACUTE DISTRESS NOTED. FAMILY AT BEDSIDE. CALL LIGHT WITHIN REACH. BED IN THE LOWEST POSITION.
[2018-06-27] MEDS: MONTELUKAST SODIUM 10 MG TAB PO SCH (20:34)
[2018-06-27] MEDS: TAMSULOSIN HCL 0.4 MG CAP PO SCH (20:34)
[2018-06-27] MEDS: LORAZEPAM 0.5 MG TAB PO PRN (21:03)
--- NOTE | 2018-06-27 21:04 | NUR ---
PATIENT SITTING AT THE SIDE OF THE BED, HE SEEMS ANXIOUS. HE C/O SHORTNESS OF BREATH AND INCREASE BURPING. OXYGEN SATURATION 95% ON 3L/NC, LUNG SOUNDS DIMINISHED AND HEART RATE 134. ATIVAN ADMINISTERED ORDERED, HE'S ENCOURAGED TO RELAX AND BREATH IN AND OUT SLOWLY. HIS [id number] IS AT THE BEDSIDE, WILL CONTINUE TO CLOSELY MONITOR.
--- NOTE | 2018-06-28 00:18 | NUR ---
PATIENT RESTING IN BED, NON PRODUCTIVE COUGH NOTED. NO PAIN VOICED, INSTRUCTED TO CALL FOR ASSISTANCE NEEDED.
[2018-06-28] MEDS: LEVALBUTEROL HCL SOLN NEBU 0.63 MG/3 ML NEB INH SCH ×4 (01:00→19:15)
[2018-06-28] MEDS: GUAIFENESIN/CODEINE 10 ML CUP PO PRN ×3 (03:10→21:27)
--- NOTE | 2018-06-28 03:18 | NUR ---
ASSISTED PATIENT WITH ADLS, HE REQUESTED ROBITUSSIN FOR COUGH. URINAL AND CALL LIGHT WITHIN EASY REACH.
[2018-06-28 04:10] VITALS: BP 138/86
[2018-06-28] MEDS: MEROPENEM 500MG/ NS 50ML 50 ML IV SCH ×3 (06:12→22:30)
[2018-06-28] MEDS: METHYLPREDNISOLONE SOD SUCC 40 MG/ML VIAL 1ML IV SCH ×3 (06:12→22:30)
[2018-06-28] MEDS: LORAZEPAM 0.5 MG TAB PO PRN ×2 (06:12→21:27)
--- NOTE | 2018-06-28 06:12 | NUR ---
PATIENT SITTING UP AT THE SIDE OF THE BED. HEART RATE FLUCTUATING FROM 170-135 UPON USING THE URINAL. PATIENT HAS HISTORY OF A-FIB, HE DENIES CHEST PAIN AND DIZZINESS HOWEVER HE C/O ANXIOUSNESS. MEDICATED WITH ATIVAN ORDERED, CALL LIGHT WITHIN EASY REACH, HIS DAUGHTER IS AT THE BEDSIDE.
[2018-06-28] MEDS: TIOTROPIUM 18 MCG INH POWDER INH SCH (07:45)
[2018-06-28] MEDS: SALMETEROL/FLUTICASONE 250/50 INH SCH ×2 (07:45→19:15)
[2018-06-28 08:00] VITALS: BP 156/91
[2018-06-28 08:04] VITALS: BP 156/91
[2018-06-28] MEDS: PANTOPRAZOLE SOD 40 MG TABEC PO SCH (08:19)
[2018-06-28] MEDS: FUROSEMIDE 20 MG TAB PO SCH (08:20)
[2018-06-28] MEDS: APIXABAN 5 MG TABLET PO SCH ×2 (08:20→16:38)
[2018-06-28] MEDS: DILTIAZEM HCL 30 MG TAB PO SCH ×4 (08:20→21:27)
[2018-06-28] MEDS: METOPROLOL SUCCINATE 25 MG TAB XL PO SCH (08:21)
[2018-06-28] MEDS: SODIUM CHLORIDE 1 GM TAB PO SCH (08:23)
--- NOTE | 2018-06-28 08:33 | NUR ---
Spoke with Dr. Austin to report that pt heart is elevated in the 170s shooting up to 180. rhythm is AFIB with RVR. Dr. Caputo states oral med should be given and reassess in one hour to see if cardiac meds dose can be increased. BP 126/70 at this time. Pt is sitting at bedside eating breakfast. Denies any chest pain.
--- NOTE | 2018-06-28 10:00 | NUR ---
Dr. Caputo here to see pt, reported BP 123/60. received orders to increase cardizem to 30mg QID and to give extra dose at this time.
[2018-06-28] MEDS: AZITHROMYCIN 250MG/NS 100 ML 100 ML IV SCH (10:58)
[2018-06-28 11:46] VITALS: BP 118/62
--- NOTE | 2018-06-28 12:39 | Progress Note ---
DATE: 06/28/2018 Cardiology Progress Note SUBJECTIVE: AFib with episodes of rapid ventricular response associated with feelings of fatigue and mild worsening shortness of breath today. Medications being adjusted. OBJECTIVE: VITAL SIGNS: Temperature 96.1, heart rate 120 at rest, blood pressure 156/91, respiratory rate 22, and O2 saturation 97% on nasal cannula. GENERAL: In no acute distress, alert. NECK: No JVD. CHEST: Decreased breath sounds in bilateral bases. Scattered rhonchi and wheezing. CARDIOVASCULAR: Irregularly irregular rate and rhythm. Normal S1, S2. No S3 or S4. Tachycardic. ABDOMEN: Soft, nontender. EXTREMITIES: 1+ edema. CARDIOVASCULAR MEDICATIONS: Reviewed. Methylprednisolone, tamsulosin, diltiazem 30 mg b.i.d., metoprolol succinate 25 mg daily, Eliquis 5 mg b.i.d., furosemide 20 mg p.o. daily. STUDIES: Reviewed. Sodium 137, potassium 3.8, chloride 103, bicarbonate 26, BUN 18, creatinine 0.86, glucose 143. White blood cell 7.8, hemoglobin 8.7, platelets 228. AST 26, ALT 38, alkaline phosphatase 106, total bilirubin 0.7. ASSESSMENT: 1. A 78-year-old man with paroxysmal atrial fibrillation and rapid ventricular response. 2. Acute on chronic diastolic heart failure. 3. Pneumonia. 4. Severe chronic obstructive pulmonary disease. 5. Hypertension. RECOMMENDATIONS: 1. Up titrate Cardizem to 30 mg every 6 hours and continue metoprolol at current dose. 2. Continue Eliquis for thromboembolic risk prevention. 3. Continue Lasix for volume management. 4. Continue antibiotic therapy and inhalers as needed. Dylan Lora MD AFPreethi/MODL /[id number]
--- NOTE | 2018-06-28 12:44 | Progress Note ---
DATE: 06/28/2018 Cardiology Progress Note SUBJECTIVE: Denies any chest pain, however, has felt more fatigued and short of breath since onset of AFib with rapid ventricular response. OBJECTIVE: VITAL SIGNS: Reviewed. Temperature 96.1, heart rate 120, blood pressure 156/91, respiratory rate 22, and O2 saturation 97% on nasal cannula. GENERAL: In no acute distress. NECK: No JVD. CHEST: With bibasilar rales, scattered rhonchi and wheezing and decreased breath sounds in bilateral bases. CARDIOVASCULAR: Irregularly irregular rate and rhythm. Normal S1, S2. No S3 or S4. Systolic ejection murmur. ABDOMEN: Soft, nontender. EXTREMITIES: 1+ edema of bilateral lower extremities. CARDIOVASCULAR MEDICATIONS: Reviewed. Methylprednisolone, tamsulosin, diltiazem 30 mg b.i.d., metoprolol succinate 25 mg daily, Eliquis 5 mg b.i.d., and furosemide 20 mg daily. STUDIES: Reviewed. Sodium 137, potassium 3.8, chloride 103, bicarbonate 26, BUN 18, creatinine 0.86, glucose 143. White blood cell 7.8, hemoglobin 8.7, platelets 228. AST 26, ALT 38, alkaline phosphatase 106. ASSESSMENT: 1. Paroxysmal atrial fibrillation. 2. Acute on chronic diastolic heart failure. 3. Severe chronic obstructive pulmonary disease. 4. Pneumonia. RECOMMENDATIONS: 1. Up titrate Cardizem to 30 mg every 6 hours. 2. Continue metoprolol. 3. Continue Eliquis for thromboembolic risk prevention. 4. Continue furosemide for volume management. 5. Continue antibiotics and inhalers. Dylan Lora MD AFPreethi/MODL /[id number]
--- NOTE | 2018-06-28 13:40 | NUR ---
[employer] provided pastoral presence, hospitality, and supportive listening. Pt's family friend/private caregiver at bedside. Informed pt of the availability of aerial tram operator and location of chapel. Pt expressed appreciation of visit. No need to follow at this time. LATRICE FUENTES [employer] Spiritual Care Department O: [phone] Pager: [phone] ([phone] number calling from)
[2018-06-28 15:52] VITALS: BP 146/76
[2018-06-28 20:00] VITALS: BP 164/77
--- NOTE | 2018-06-28 21:25 | NUR ---
NON PRODUCTIVE COUGH NOTED AND PATIENT REQUEST ATIVAN FOR ANXIETY. MEDICATED WITH ROBITUSSIN AND ATIVAN ORDERED. HIS DAUGHTER IS AT THE BEDSIDE, THEY WERE INSTRUCTED TO CALL FOR ASSISTANCE NEEDED.
[2018-06-28] MEDS: TAMSULOSIN HCL 0.4 MG CAP PO SCH (21:26)
[2018-06-28] MEDS: MONTELUKAST SODIUM 10 MG TAB PO SCH (21:26)
[2018-06-29] VITALS (25 sets, daily range): BP systolic 97–183; BP diastolic 62–129
--- NOTE | 2018-06-29 02:05 | NUR ---
[facility] DIRECTOR CALL AND SAID THE PATIENT'S HEART RATE IS 175. UPON ASSESSMENT THE PATIENT WAS OBSERVED SITTING AT THE SIDE OF THE BED AND HE C/O DIFFICULTY BREATHING AND STATED "PLEASE HELP ME." RESPIRATORY RATE 30, OXYGEN SATURATION 95% ON 3L/NC AND PATIENTS LUNGS SOUNDS SEVERELY DIMINISHED. CALL AND SPOKE WITH DR JIMENEZ REGARDING THE PATIENT'S CONDITION, ORDER RECEIVED TO TRANSFER THE PATIENT TO ICU AND NOTIFY DR ABREU FOR FURTHER ORDERS. THE PATIENT DAUGHTER MADE AWARE OF THE PLAN OF CARE; REPORT CALL AND GIVEN TO THE RECEIVING NURSE IN ICU.
--- NOTE | 2018-06-29 02:23 | NUR ---
Received pt to ICU 192. Tachycardia Afib 150's, working hard to breathe with resp rate of 26, is refusing the bipap which is available. Respiratory at bedside, ABGs stat and call results. Daughter is with pt, he is calm and following instructions for pursed lip breathing. Will monitor.
--- NOTE | 2018-06-29 02:41 | NUR ---
PATIENT HAS BEEN TRANSFERRED TO ICU #[id number] PER BED, ALL PERSONAL ITEMS TAKEN BY THE PATIENT'S DAUGHTER.
[2018-06-29] MEDS ORDERED: DEXMEDETOMIDINE 200MCG/NS 50ML 50 ML IV ONE (03:23)
[2018-06-29] MEDS: DEXMEDETOMIDINE HCL 200 MCG in SODIUM CHLORIDE 0.9% 50ML 48 ML IV PRN ×2 (03:34→15:21)
[2018-06-29] MEDS: METHYLPREDNISOLONE SOD SUCC 40 MG/ML VIAL 1ML IV SCH ×3 (05:58→20:43)
[2018-06-29] MEDS ORDERED: SODIUM CHLORIDE 0.9% 250ML 250 ML ONE (06:00)
[2018-06-29] MEDS: MEROPENEM 500MG/ NS 50ML 50 ML IV SCH ×3 (06:02→20:43)
[2018-06-29 06:31] LABS: ABG HCO3 35 mmol/L (23-28); ABG PCO2 51 mmHg (41-51); ABG PH 7.45 (7.31-7.41); ABG PO2 77 mmHg (80-105)
[2018-06-29] MEDS: SALMETEROL/FLUTICASONE 250/50 INH SCH ×2 (07:00→19:53)
--- NOTE | 2018-06-29 07:11 | NUR ---
End of shift note. Precedex started at aprox 0300. Titrated to 0.4 mcg/kg/hr by 0430, pt stating he was sleepy and ready for the bipap. Pt was placed in bipap by respiratory therapy and has tolerated well until shift change. Pt wakes easily. Vitals improved. No current complications noted. Daughter remains at bedside.
[2018-06-29] MEDS: LEVALBUTEROL HCL SOLN NEBU 0.63 MG/3 ML NEB INH SCH ×3 (07:55→19:37)
[2018-06-29] MEDS: LORAZEPAM 0.5 MG TAB PO PRN ×2 (08:06→16:19)
[2018-06-29] MEDS: FUROSEMIDE 20 MG TAB PO SCH (08:14)
[2018-06-29] MEDS: DILTIAZEM HCL 30 MG TAB PO SCH ×3 (08:14→20:14)
[2018-06-29] MEDS: METOPROLOL SUCCINATE 25 MG TAB XL PO SCH ×2 (08:15→20:14)
[2018-06-29] MEDS: TIOTROPIUM 18 MCG INH POWDER INH SCH ×2 (09:00→19:54)
[2018-06-29] MEDS: GUAIFENESIN/CODEINE 10 ML CUP PO PRN (09:00)
--- NOTE | 2018-06-29 09:00 | NUR ---
Dr Callahan to bedside; conference with daughter regarding patient condition and long-term plans.
--- NOTE | 2018-06-29 09:28 | NUR ---
Dr Carvajal to bedside.
[2018-06-29 10:15] LABS: BASOPHILS % 0.2 % (0.0-1.0); HEMATOCRIT 29.8 % (38.2-49.6); HEMOGLOBIN 9.5 g/dL (14.0-18.0); LYMPHOCYTES # (AUTO) 0.3 (1.0-3.2); LYMPHOCYTES % 4.1 % (18.0-39.1); MEAN CORPUSCULAR HEMOGLOBIN 30.8 pg (28-32); MEAN CORPUSCULAR HGB CONC 31.9 g/dL (31-35); MEAN CORPUSCULAR VOLUME 96.8 fL (81-99); MONOCYTES # (AUTO) 0.5 (0.2-0.8); MONOCYTES % 6.5 % (4.4-11.3); NEUTROPHILS # (AUTO) 7.3 (2.1-6.9); PLATELET COUNT 245 x10e3/uL (140-360); RED BLOOD COUNT 3.08 x10e6/uL (4.3-5.7); RED CELL DISTRIBUTION WIDTH 14.2 % (11.7-14.4)
[2018-06-29 10:36] LABS: ALANINE AMINOTRANSFERASE 74 IU/L (0-55); ALBUMIN 2.8 g/dL (3.5-5.0); ALBUMIN/GLOBULIN RATIO 0.8 (0.8-2.0); ALKALINE PHOSPHATASE 95 IU/L (40-150); ANION GAP 10.2 mmol/L (8-16); BLOOD UREA NITROGEN 25 mg/dL (7-26); BUN/CREATININE RATIO 29 (6-25); CALCIUM 9.3 mg/dL (8.4-10.2); CARBON DIOXIDE 34 mmol/L (22-29); CHLORIDE 98 mmol/L (98-107); CREATININE, SERUM 0.85 mg/dL (0.72-1.25); EST GLOMERULAR FILTRATION RATE > 60 ML/MIN (60-); GLUCOSE 143 mg/dL (74-118); POTASSIUM 4.2 mmol/L (3.5-5.1); SODIUM 138 mmol/L (136-145)
[2018-06-29] MEDS: IPRATROPIUM BROMIDE 0.02% 2.5 ML NEB NEB SCH ×4 (11:25→23:45)
--- NOTE | 2018-06-29 12:04 | Diagnostic Imaging Report ---
EXAM: CHEST SINGLE (PORTABLE), AP Portable DATE: 06/29/2018 Time stamp on exam: 10:57 AM INDICATION: Pneumonia COMPARISON: 06/25/2018 chest x-ray, 06/26/[address] FINDINGS: LINES/TUBES: None LUNGS: Lungs are hyperexpanded compatible with COPD. Little interval change in the bibasilar airspace opacities. Left upper lobe calcified granulomatous changes. PLEURA: No effusions or pneumothorax. HEART AND MEDIASTINUM: Normal size and contour. BONES AND SOFT TISSUES: No acute findings. IMPRESSION: Bibasilar airspace opacities. Signed by: Dr. Tristin Barry DO on 06/29/2018 12:01 PM
[2018-06-29] MEDS: AZITHROMYCIN 250MG/NS 100 ML 100 ML IV SCH (12:50)
[2018-06-29] MEDS: PANTOPRAZOLE SOD 40 MG TABEC PO SCH (12:54)
[2018-06-29] MEDS: APIXABAN 5 MG TABLET PO SCH ×2 (12:55→18:01)
[2018-06-29] MEDS: SODIUM CHLORIDE 1 GM TAB PO SCH (12:55)
[2018-06-29] MEDS: SIMETHICONE 80 MG CHEW PO PRN (13:01)
--- NOTE | 2018-06-29 14:11 | NUR ---
WOUND CARE PUP SCREEN Veto Score 17 Moderate Strict PUP LOS= 3 Days Age= 78 [employer] HOB < / = 30 Degrees Heelx offloaded with pillows. Patient Position: Back PATIENT VISIT / SKIN CHECK: No Pressure Ulcers Identified RECOMMENDATION: - Alternating Pressure Air Mattress and set to patient current weight. - Bilateral Heel Protectors / Offload Heels with Pillows while in bed. - Continue to Turn and Reposition Every 2 Hours using turning clock schedule. - HOB elevated to </ = 30 Degrees as tolerated. Addendum: 06/29/18 at 1417 by Jai Maher RN Amended: Links added.
--- NOTE | 2018-06-29 19:00 | NUR ---
Bedside report received from Coby Pace RN. Pt received resting in bed with eyes open, HOB elevated to 40degrees per pt request/comfort. Pt on Bipap mask at this time per MD orders SPO2 100% RR 24. Multiple family members at the beside, care plan reviewed. Pt reports no pain at this time.
--- NOTE | 2018-06-29 19:17 | Progress Note ---
DATE: 06/29/2018 Cardiology Progress Note SUBJECTIVE: No complaints. OBJECTIVE: VITAL SIGNS: Temperature 97.4, heart rate 157, respiratory rate 28, blood pressure 151/103, O2 saturation 96% on 3 L/minute. GENERAL: No acute distress. CHEST: Decreased breath sounds, rhonchi and scattered rales. CARDIOVASCULAR: Irregularly irregular rate and rhythm. Normal S1, S2. ABDOMEN: Soft. EXTREMITIES: 1+ edema. CARDIOVASCULAR MEDICATIONS: Reviewed. Methylprednisolone 20 mg IV q.8 hours, Eliquis 5 mg every 12 hours, metoprolol succinate 25 mg daily, furosemide 20 mg p.o. daily, Flomax 0.4 mg daily. STUDIES: White blood cells 8.3, hemoglobin 9.5, platelets 245. Sodium 138, potassium 4.2, chloride 98, bicarbonate 34, BUN 25, creatinine 0.85, glucose 143, calcium 9.3, total bilirubin 0.5, AST 35, ALT 74, alkaline phosphatase 95. Chest x-ray, bibasilar airspace opacities noted. ASSESSMENT: 1. Atrial fibrillation with episode of rapid ventricular response. 2. Acute on chronic diastolic heart failure. 3. Severe chronic obstructive pulmonary disease. 4. Pneumonia. RECOMMENDATIONS: 1. I will titrate metoprolol to 25 mg every 12 hours. 2. I will titrate Cardizem to 60 mg every 8 hours, holding parameters discussed. 3. Continue rest of cardiovascular medications. MD VALDEZ Gomez/VIKTORIYA /[id number]
[2018-06-29] MEDS: TAMSULOSIN HCL 0.4 MG CAP PO SCH (20:14)
[2018-06-29] MEDS: MONTELUKAST SODIUM 10 MG TAB PO SCH (20:14)
[2018-06-30] VITALS (26 sets, daily range): BP systolic 92–146; BP diastolic 59–104
[2018-06-30] MEDS: IPRATROPIUM BROMIDE 0.02% 2.5 ML NEB NEB SCH ×6 (03:33→22:55)
[2018-06-30 05:30] LABS: BASOPHILS % 0.1 % (0.0-1.0); HEMATOCRIT 30.2 % (38.2-49.6); HEMOGLOBIN 9.4 g/dL (14.0-18.0); LYMPHOCYTES # (AUTO) 0.8 (1.0-3.2); LYMPHOCYTES % 9.1 % (18.0-39.1); MEAN CORPUSCULAR HEMOGLOBIN 30.1 pg (28-32); MEAN CORPUSCULAR HGB CONC 31.1 g/dL (31-35); MEAN CORPUSCULAR VOLUME 96.8 fL (81-99); MONOCYTES # (AUTO) 0.8 (0.2-0.8); MONOCYTES % 8.6 % (4.4-11.3); NEUTROPHILS # (AUTO) 7.2 (2.1-6.9); NEUTROPHILS % 80.4 % (38.7-80.0); PLATELET COUNT 236 x10e3/uL (140-360); RED BLOOD COUNT 3.12 x10e6/uL (4.3-5.7); RED CELL DISTRIBUTION WIDTH 14.2 % (11.7-14.4)
[2018-06-30] MEDS: METHYLPREDNISOLONE SOD SUCC 40 MG/ML VIAL 1ML IV SCH ×3 (05:35→22:20)
[2018-06-30] MEDS: MEROPENEM 500MG/ NS 50ML 50 ML IV SCH ×3 (05:35→22:20)
[2018-06-30 05:48] LABS: ANION GAP 11.2 mmol/L (8-16); BLOOD UREA NITROGEN 29 mg/dL (7-26); BUN/CREATININE RATIO 35 (6-25); CALCIUM 9.4 mg/dL (8.4-10.2); CARBON DIOXIDE 34 mmol/L (22-29); CHLORIDE 99 mmol/L (98-107); CREATININE, SERUM 0.83 mg/dL (0.72-1.25); EST GLOMERULAR FILTRATION RATE > 60 ML/MIN (60-); GLUCOSE 120 mg/dL (74-118); POTASSIUM 4.2 mmol/L (3.5-5.1); SODIUM 140 mmol/L (136-145)
--- NOTE | 2018-06-30 06:30 | Diagnostic Imaging Report ---
EXAM: CHEST SINGLE (PORTABLE), AP Portable DATE: 06/30/2018 7:00 AM INDICATION: Pneumonia. COMPARISON: 06/29/2018 FINDINGS: LINES/TUBES: None LUNGS: Lungs are hyperinflated consistent with COPD. Patchy density in the left lung base. Mild patchy density in the right lung base. Bilateral perihilar, peribronchial thickening. Chronic granulomatous changes in the left upper lobe. PLEURA: No effusions or pneumothorax. HEART AND MEDIASTINUM: Normal size and contour. BONES AND SOFT TISSUES: No acute findings. IMPRESSION: No significant interval change in bibasilar opacities, left than right. Signed by: Dr. Dallin Meza M.D. on 06/30/2018 6:26 AM
[2018-06-30] MEDS: TIOTROPIUM 18 MCG INH POWDER INH SCH (07:33)
[2018-06-30] MEDS: LEVALBUTEROL HCL SOLN NEBU 0.63 MG/3 ML NEB INH SCH ×3 (07:33→22:55)
[2018-06-30] MEDS: SALMETEROL/FLUTICASONE 250/50 INH SCH ×2 (07:45→19:27)
[2018-06-30] MEDS: PANTOPRAZOLE SOD 40 MG TABEC PO SCH (08:07)
[2018-06-30] MEDS: APIXABAN 5 MG TABLET PO SCH ×2 (08:09→17:49)
[2018-06-30] MEDS: METOPROLOL SUCCINATE 25 MG TAB XL PO SCH ×2 (08:09→20:24)
[2018-06-30] MEDS: SODIUM CHLORIDE 1 GM TAB PO SCH (08:09)
[2018-06-30] MEDS: DILTIAZEM HCL 30 MG TAB PO SCH ×4 (08:09→23:11)
[2018-06-30] MEDS: FUROSEMIDE 20 MG TAB PO SCH (08:09)
[2018-06-30] MEDS: SIMETHICONE 80 MG CHEW PO PRN ×2 (08:53→18:10)
[2018-06-30] MEDS ORDERED: MAGNESIUM HYDROXIDE 30 ML UDC PO PRN ×2 (09:15→09:45)
[2018-06-30] MEDS ORDERED: BISACODYL 10 MG SUPP PR PRN (09:15)
[2018-06-30] MEDS ORDERED: MINERAL OIL 132 ML BTL PR PRN (09:45)
[2018-06-30] MEDS: SENNOSIDES 8.6 MG TAB PO SCH ×2 (09:53→17:49)
--- NOTE | 2018-06-30 09:55 | NUR ---
caregiver at bedside refusing to allow us to turn patient until she says so. Addendum: 06/30/18 at 0957 by Beth Goodwin RN Amended: Links added.
[2018-06-30] MEDS ORDERED: BISACODYL 10 MG SUPP PR NR (10:00)
[2018-06-30] MEDS: LORAZEPAM 0.5 MG TAB PO PRN ×2 (10:21→20:32)
[2018-06-30] MEDS: AZITHROMYCIN 250MG/NS 100 ML 100 ML IV SCH (10:41)
[2018-06-30] MEDS: GUAIFENESIN/CODEINE 10 ML CUP PO PRN ×2 (11:58→22:10)
--- NOTE | 2018-06-30 11:58 | Diagnostic Imaging Report ---
Exam: KUB - 1 view Clinical History: Constipation. Comparison: Chest radiograph 06/30/2018. Findings: Exam is somewhat limited by motion and portable technique. Nonobstructive bowel gas pattern. Moderate amount of stool in the proximal colon. No acute osseous abdomen. Please refer to the same day chest radiograph for details of intrathoracic findings. Impression: Moderate amount of stool in the proximal colon. Nonobstructive bowel gas pattern. Signed by: Dr. Elma Veliz MD on 06/30/2018 11:55 AM
--- NOTE | 2018-06-30 12:20 | NUR ---
PATIENT REQUESTED DUBOSE CATHETER. DR PINK GAVE ORDER. UNABLE TO INSERT DUBOSE. DIAPER AND APPLIED SKIN BARRIER CREAM
--- NOTE | 2018-06-30 12:40 | Progress Note ---
DATE: 06/30/2018 Cardiology Progress Note SUBJECTIVE: Saji denies any chest pain. Shortness of breath is improving. AFib, rate control remains in the 120s to 140s, somewhat better than yesterday. He has been weaned down to nasal cannula today. OBJECTIVE: VITAL SIGNS: Temperature 97.6, heart rate 140, blood pressure 144/97, respiratory rate 18, and O2 saturation 100% on nasal cannula. GENERAL: No acute distress, alert. NECK: No JVD. CHEST: Decreased breath sounds. Scattered rhonchi and prolonged respiratory phase. CARDIOVASCULAR: Irregularly irregular rate and rhythm. Normal S1, S2. No S3 or S4. ABDOMEN: Soft and nontender. EXTREMITIES: Trace edema. CARDIOVASCULAR MEDICATIONS: Reviewed. Tamsulosin 0.4 mg at bedtime, prednisolone, diltiazem 60 mg t.i.d., Eliquis 5 mg every 12 hours, metoprolol succinate 25 mg every 12 hours. STUDIES: Reviewed. Sodium 140, potassium 4.2, chloride 99, bicarbonate 34, BUN 29, creatinine 0.83, and glucose 120. White blood cells 9, hemoglobin 9.4, platelets 234, AST 35, ALT 74, and alkaline phosphatase 95. ASSESSMENT: A 78-year-old man with: 1. Paroxysmal atrial fibrillation. 2. Severe chronic obstructive pulmonary disease. 3. Pneumonia. 4. Acute on chronic diastolic heart failure. RECOMMENDATIONS: Continue current cardiovascular medications with the following change. I will titrate diltiazem to 60 mg four times a day from three times a day. MD VALDEZ Gomez/VIKTORIYA /[id number]
[2018-06-30] MEDS: DEXMEDETOMIDINE HCL 200 MCG in SODIUM CHLORIDE 0.9% 50ML 48 ML IV PRN (13:38)
[2018-06-30] MEDS: DOCUSATE SODIUM LIQD 100 MG/10 ML UDC NG SCH (17:49)
--- NOTE | 2018-06-30 18:00 | NUR ---
daughter at bedside wants to wait on Dulcolax suppository until tomorrow if patient does not have a bm tonight. all other meds given
[2018-06-30] MEDS: TAMSULOSIN HCL 0.4 MG CAP PO SCH (20:23)
[2018-06-30] MEDS: MONTELUKAST SODIUM 10 MG TAB PO SCH (20:23)
[2018-06-30] MEDS: DEXMEDETOMIDINE 200MCG/NS 50ML 50 ML IV PRN (22:00)
[2018-07-01] VITALS (27 sets, daily range): BP systolic 65–147; BP diastolic 55–115
[2018-07-01] MEDS: IPRATROPIUM BROMIDE 0.02% 2.5 ML NEB NEB SCH ×6 (03:15→22:57)
[2018-07-01] MEDS: SIMETHICONE 80 MG CHEW PO PRN ×2 (04:05→23:16)
[2018-07-01] MEDS: LORAZEPAM 0.5 MG TAB PO PRN ×3 (04:23→22:32)
[2018-07-01] MEDS: DEXMEDETOMIDINE 200MCG/NS 50ML 50 ML IV PRN ×3 (05:00→23:51)
[2018-07-01] MEDS: DILTIAZEM HCL 30 MG TAB PO SCH ×4 (05:16→23:52)
[2018-07-01] MEDS: GUAIFENESIN/CODEINE 10 ML CUP PO PRN ×2 (05:16→22:32)
[2018-07-01] MEDS: METHYLPREDNISOLONE SOD SUCC 40 MG/ML VIAL 1ML IV SCH ×3 (05:24→23:05)
[2018-07-01] MEDS: MEROPENEM 500MG/ NS 50ML 50 ML IV SCH ×3 (05:24→23:05)
[2018-07-01] MEDS: LEVALBUTEROL HCL SOLN NEBU 0.63 MG/3 ML NEB INH SCH ×3 (07:00→22:57)
[2018-07-01] MEDS: SALMETEROL/FLUTICASONE 250/50 INH SCH ×2 (07:00→19:42)
[2018-07-01] MEDS: SODIUM CHLORIDE 1 GM TAB PO SCH (08:38)
[2018-07-01] MEDS: DOCUSATE SODIUM LIQD 100 MG/10 ML UDC NG SCH ×2 (08:38→16:20)
[2018-07-01] MEDS: APIXABAN 5 MG TABLET PO SCH ×2 (08:38→17:03)
[2018-07-01] MEDS: SENNOSIDES 8.6 MG TAB PO SCH ×3 (08:38→17:03)
[2018-07-01] MEDS: PANTOPRAZOLE SOD 40 MG TABEC PO SCH (08:38)
[2018-07-01] MEDS: FUROSEMIDE 20 MG TAB PO SCH (08:38)
[2018-07-01] MEDS: METOPROLOL SUCCINATE 25 MG TAB XL PO SCH ×2 (08:39→21:59)
[2018-07-01] MEDS: TIOTROPIUM 18 MCG INH POWDER INH SCH (09:00)
--- NOTE | 2018-07-01 10:35 | NUR ---
CALL TO [facility] [email or web address] TO CHECK IF LTAC BENEFIT AVAILABLE. CM: DELICIA SANDOVAL @ [phone]. NO ANSWER; LEFT VM. WILL AWAIT CALL BACK.
[2018-07-01] MEDS ORDERED: SODIUM CHLORIDE 0.9% 250ML 250 ML ONE (12:28)
--- NOTE | 2018-07-01 14:24 | NUR ---
MODIFIED BARIUM SWALLOW STUDY AT BEDSIDE. PATIENT INSTRUCTED TO CLEAR THROAT WITH EVERY DRINK OF LIQUID OR BITE OF FOOD. PATIENT DEMONSTRATED UNDERSTANDING. SPEECH THERAPY TO TREAT WITH NMES
--- NOTE | 2018-07-01 14:28 | NUR ---
PATIENT DID NOT WANT ME TO TURN HIM. HE DEMONSTRATED ABILITY TO TURN ON HIS OWN. ENCOURAGED TO TURN MUCH POSSIBLE.
--- NOTE | 2018-07-01 14:55 | Diagnostic Imaging Report ---
PROCEDURE: X-RAY MODIFIED BARIUM SWALLOW COMPARISON: None. INDICATION: Possible dysphagia. Radiation Details: Fluoroscopy time: 2.5 minutes Cumulative dose: 7.6 mGy DISCUSSION: Fluoroscopic examination was performed in conjunction with speech pathology during swallowing a variety of thin and thick liquid consistencies. Provided images demonstrate laryngeal penetration with a trace amount of aspiration. Mild to moderate vallecular, pyriform sinus, and base of tongue residue is noted. CONCLUSION: Modified barium swallow demonstrating laryngeal penetration with a trace amount of aspiration. Please refer to the speech pathology report for further details. Signed by: Dr. Elma Veliz MD on 07/01/2018 2:52 PM
--- NOTE | 2018-07-01 18:00 | NUR ---
PATIENT DOING WELL TURNING HIMSELF. PATIENT AMBULATED ON UNIT IN HALLWAY WITH PHYSICAL THERAPY AND TOLERATED WELL. OFFERED TO WALK HIM AGAIN BUT HE WANTS TO WAIT UNTIL LATER.
--- NOTE | 2018-07-01 19:10 | NUR ---
PATIENT TOLERATED WALKING TO TOILET FOR BM. O2 PER NC
--- NOTE | 2018-07-01 21:25 | Progress Note ---
DATE: 07/01/2018 Cardiology progress note. SUBJECTIVE: Shortness of breath continues to improve. Rate control also better after additional medication changes were made yesterday. He denies any chest pain. Leg edema is improving. OBJECTIVE: VITAL SIGNS: Temperature 97.4, heart rate ranging between the 90s to 110 on telemetry on recent review. Blood pressure 140/82, respiratory rate 18, O2 saturation 98%, and BMI 18.4. GENERAL: In no acute distress, alert. NECK: No JVD. CHEST: With decreased breath sounds and scattered rhonchi overall better than yesterday on exam. CARDIOVASCULAR: Irregularly irregular rate and rhythm. Normal S1, S2. No S3 or S4. Systolic ejection murmur 03/14. ABDOMEN: Soft. EXTREMITIES: 1+ edema to right lower extremity, trace edema of the left lower extremity. Warm distal extremities. CARDIOVASCULAR MEDICATIONS: Reviewed. Eliquis 5 mg every 12 hours, tamsulosin 0.4 mg at bedtime, metoprolol 25 mg every 12 hours extended release, furosemide 20 mg daily, Cardizem 60 mg every 6 hours, methylprednisolone and inhalers. STUDIES: Reviewed. Sodium 140, potassium 4.2, chloride 99, bicarbonate 34, BUN 29, creatinine 0.8, glucose 121.9, hemoglobin 9.4, and platelets 236. AST 35, ALT 74, total bilirubin 0.5, alkaline phosphatase 95. ASSESSMENT: 1. Atrial fibrillation with improving rate control. 2. Acute on chronic diastolic heart failure. 3. Chronic obstructive pulmonary disease. 4. Pneumonia. 5. BMI below the reference range. RECOMMENDATIONS: 1. Continue current rate control strategy and anticoagulation. 2. Continue diuretics at a stable dose. 3. Improving on antibiotics. Continue care per other services expertise. 4. Encouraged increased caloric and protein intake as well as physical reconditioning. Dylan Lora MD AFV/MODL /[id number]
[2018-07-01] MEDS: TAMSULOSIN HCL 0.4 MG CAP PO SCH (22:00)
[2018-07-01] MEDS: MONTELUKAST SODIUM 10 MG TAB PO SCH (22:00)
[2018-07-02] VITALS (27 sets, daily range): BP systolic 90–157; BP diastolic 56–108
[2018-07-02] MEDS: IPRATROPIUM BROMIDE 0.02% 2.5 ML NEB NEB SCH ×6 (03:17→23:07)
[2018-07-02] MEDS: DEXMEDETOMIDINE 200MCG/NS 50ML 50 ML IV PRN (04:26)
[2018-07-02] MEDS: MEROPENEM 500MG/ NS 50ML 50 ML IV SCH ×3 (06:45→20:41)
[2018-07-02] MEDS: METHYLPREDNISOLONE SOD SUCC 40 MG/ML VIAL 1ML IV SCH ×2 (06:46→13:15)
[2018-07-02] MEDS: DILTIAZEM HCL 30 MG TAB PO SCH ×3 (06:47→17:14)
[2018-07-02] MEDS: LORAZEPAM 0.5 MG TAB PO PRN ×3 (06:47→22:28)
[2018-07-02] MEDS: SALMETEROL/FLUTICASONE 250/50 INH SCH ×2 (07:00→19:20)
[2018-07-02] MEDS: LEVALBUTEROL HCL SOLN NEBU 0.63 MG/3 ML NEB INH SCH ×3 (07:40→23:07)
[2018-07-02] MEDS: FUROSEMIDE 20 MG TAB PO SCH (08:41)
[2018-07-02] MEDS: PANTOPRAZOLE SOD 40 MG TABEC PO SCH (08:41)
[2018-07-02] MEDS: APIXABAN 5 MG TABLET PO SCH ×2 (08:41→16:41)
[2018-07-02] MEDS: SODIUM CHLORIDE 1 GM TAB PO SCH (08:42)
[2018-07-02] MEDS: METOPROLOL SUCCINATE 25 MG TAB XL PO SCH ×2 (08:43→20:41)
[2018-07-02] MEDS: DOCUSATE SODIUM LIQD 100 MG/10 ML UDC NG SCH ×2 (09:00→16:41)
[2018-07-02] MEDS: TIOTROPIUM 18 MCG INH POWDER INH SCH (09:00)
[2018-07-02] MEDS: SENNOSIDES 8.6 MG TAB PO SCH ×2 (09:00→16:41)
[2018-07-02] MEDS: GUAIFENESIN/CODEINE 10 ML CUP PO PRN ×2 (09:49→22:38)
--- NOTE | 2018-07-02 11:43 | Progress Note ---
DATE: 07/02/2018 Cardiology Progress Note SUBJECTIVE: Saji feels better today. Denies any chest pain. Shortness of breath at rest is much improved. OBJECTIVE: VITAL SIGNS: Temperature 97.8, heart rate in the 80s to low 100s on telemetry in atrial fibrillation, respiratory rate 17, blood pressure 131/81, and O2 saturation 100% on 2 L/minute nasal cannula. GENERAL: In no acute distress. Alert. NECK: No JVD. CHEST: Decreased breath sounds and prolonged expiratory phase. CARDIOVASCULAR: Irregularly irregular rate and rhythm. Normal S1, S2. ABDOMEN: Soft and nontender. EXTREMITIES: Trace edema. CARDIOVASCULAR MEDICATIONS: Reviewed. Metoprolol succinate 25 mg every 12 hours, Eliquis 5 mg every 12 hours, diltiazem 60 mg every 6 hours, methylprednisolone 20 mg IV q.8 hours, meropenem, tamsulosin, and tiotropium. STUDIES: White blood cells 9, hemoglobin 9.4, and platelets 236. Sodium 140, potassium 4.2, chloride 99, bicarbonate 34, BUN 29, creatinine 0.83, glucose 120, calcium 9.4. Blood cultures, no growth after 5 days. ASSESSMENT: 1. Atrial fibrillation with adequate rate control. 2. Acute on chronic diastolic heart failure with improved volume status. 3. Chronic obstructive pulmonary disease, severe, on home O2. 4. Pneumonia, improving on antibiotics. 5. BMI below reference range. RECOMMENDATIONS: Continue current cardiovascular medications including diuretics, anticoagulation, and rate control. Dylan Lora MD AFPreethi/MODL /[id number]
--- NOTE | 2018-07-02 11:46 | NUR ---
CM SPOKE WITH DELICIA SANDOVAL WITH [facility] SHE IS NO LONGER CM FOR [facility] STATES [facility] CURRENTLY [facility] IS HANDLING THIS PT CM CALLED [facility] AT [phone] SHE STATES [facility] IS IN NETWORK AND PT DOES HAVE BENEFITS ALSO HAS 25 SNF DAYS PER YEAR AUTH # [id number] CM TO FOLLOW
--- NOTE | 2018-07-02 12:56 | NUR ---
Nutrition Intervention Note RD Recommendation(s) for Physician: -Continue current diet per MD and texture per speech. -Rec d/c Ensure clear and rec Ensure pudding BID Plan of Care: RD following, monitoring for tolerance and adequacy Nutrition reason for involvement: f/u RD Assessment 07/02: Follow up: Pt was seen being evaluated by REGIONAL DIRECTOR. REGIONAL DIRECTOR recommended regular diet with thin liquids, no altered textured. Family was at bedside and can speak Swedish. They reported pt has an improved appetite. He does not like to consume the Ensure clear d/t the flavor and acidity, but he does like to consume Ensure Enlive supplements, but these supplements tend to give him bloating/gas symptoms. Told family member that the Ensure Enlive supplement are suitable for lactose intolerant people. Family member was open to trying the Ensure pudding for pt, spoke to nurse about supplement order. Told family members if pt has similar GI symptoms, he does not need to consume. Pt is on fluid restriction per family member. They had no other questions at this time. Will continue to monitor. Initial encounter with patient. Pt is Setswana speaking. Daughter and RN present at time of visit and translated for the RD. Pt with involuntary wt loss during last hospital stay of 2-3 weeks. Pt experienced GI upset and mouth sores which decreased Po intake and led to wt loss. Pt is also bed bound. Pt has missing teeth, but denies any difficulty chewing or swallowing. Daughter states that Pt has been eating better and has gained 3 pounds, however, Pt has had edema. Willing to try Ensure supplement. Will send with meals TID. Po intake has improved per daughter. Pt ate about 75% of meal. Pt with hollow orbitals, temporal wasting, prominent clavicle, ribs, acromion process, scapula, loss of lean body mass noted in bilateral upper and lower extremities. Principal Problems/Diagnoses: HCAP PMH:COPD GERD, Diverticulitis, heart failure IVF: None GI: Abd: soft, non tender Skin: Intact Labs: 07/02: Co2: 34, Creat 29, BUN, Creat 35, Gluc 120 Meds: protonix, eliquis, lasix, solu-medrol, flomax, colace, milk of magnesia, senokot Malnutrition Evaluation (06/26/2018) The patient meets criteria for unspecified SEVERE protein-calorie malnutrition. Energy intake: <75% of estimated energy requirements for >1 month Weight loss: > 5% in 1 month (Chronic) Fat loss: Severe Muscle loss:Severe Supporting Evidence: Fluid accumulation: Mild, Functional Status: measurably reduced Diet Education Needs Assessment: Diet education not indicated. Ht:68 Wt:121lbs BMI:18.4kg/m2 IBW:154lbs Estimated Nutritional Needs: 1650 - 1925 kcals at 30-35 kcals/kg/bw 82-110g of protein at 1.5-2g/kg/bw Nutrition Prescription (Diet Order): Cardiac diet Food Allergies: No known food allergies Diet Adequacy: Meeting calorie needs, Meeting protein needs, Meeting fluid needs Tolerance: Tolerating PO Nutrition Care Level: moderate Nutrition Diagnosis: Malnutrition relate to chronic illness as evidenced by a BMI of 17.5 Goal:Patient will meet 75-100% of estimated needs by follow up Progress: Progressing Interventions: Fat, chol, mineral (sodium) diet, Schedule of food, Commercial beverage Monitoring/Evaluation: Total energy intake, Total protein intake, Liquid supplement, Weight change. Marine Martinez RD, LD
[2018-07-02] MEDS: SIMETHICONE 80 MG CHEW PO PRN (19:57)
[2018-07-02] MEDS: MONTELUKAST SODIUM 10 MG TAB PO SCH (20:41)
[2018-07-02] MEDS: TAMSULOSIN HCL 0.4 MG CAP PO SCH (20:41)
[2018-07-03] VITALS (18 sets, daily range): BP systolic 103–156; BP diastolic 50–130
[2018-07-03] MEDS: DILTIAZEM HCL 30 MG TAB PO SCH ×5 (01:04→23:08)
[2018-07-03] MEDS: IPRATROPIUM BROMIDE 0.02% 2.5 ML NEB NEB SCH ×6 (03:02→23:00)
[2018-07-03] MEDS: GUAIFENESIN/CODEINE 10 ML CUP PO PRN ×2 (04:19→21:48)
[2018-07-03] MEDS: LORAZEPAM 0.5 MG TAB PO PRN (04:19)
[2018-07-03] MEDS: MEROPENEM 500MG/ NS 50ML 50 ML IV SCH (05:18)
[2018-07-03] MEDS: LEVALBUTEROL HCL SOLN NEBU 0.63 MG/3 ML NEB INH SCH ×3 (07:30→22:00)
[2018-07-03] MEDS: SALMETEROL/FLUTICASONE 250/50 INH SCH (07:45)
[2018-07-03] MEDS: TIOTROPIUM 18 MCG INH POWDER INH SCH (09:00)
[2018-07-03] MEDS: FUROSEMIDE 20 MG TAB PO SCH (09:00)
[2018-07-03] MEDS: PANTOPRAZOLE SOD 40 MG TABEC PO SCH (09:00)
[2018-07-03] MEDS: DOCUSATE SODIUM LIQD 100 MG/10 ML UDC NG SCH ×2 (09:00→17:00)
[2018-07-03] MEDS: SODIUM CHLORIDE 1 GM TAB PO SCH (09:00)
[2018-07-03] MEDS: METOPROLOL SUCCINATE 25 MG TAB XL PO SCH ×2 (09:00→21:47)
[2018-07-03] MEDS: SENNOSIDES 8.6 MG TAB PO SCH ×2 (09:00→17:00)
[2018-07-03] MEDS: APIXABAN 5 MG TABLET PO SCH ×2 (09:00→17:26)
--- NOTE | 2018-07-03 20:06 | Progress Note ---
DATE: 07/03/2018 Cardiology Progress Note SUBJECTIVE: No chest pain. Tachycardic on tele and AFib with RVR. OBJECTIVE: VITAL SIGNS: Temperature 97.5, heart rate 115 to 160, blood pressure 145/75, respiratory rate 21, and O2 saturation 97% on nasal cannula. GENERAL: No acute distress and alert. NECK: No JVD. CHEST: With scattered rales and rhonchi. CARDIOVASCULAR: Irregularly irregular rate and rhythm. Tachycardic. Normal S1, S2. No S3, no S4. ABDOMEN: Soft. EXTREMITIES: Trace edema. CARDIOVASCULAR MEDICATIONS: Tamsulosin 0.4 mg at bedtime, metoprolol succinate 25 mg every 12 hours, furosemide 20 mg p.o. daily, diltiazem 60 mg every 6 hours, and Eliquis 5 mg every 12 hours. LABORATORY DATA: Sodium 140, potassium 4.2, chloride 99, bicarbonate 34, BUN 29, creatinine 0.8, and glucose 120. White blood cells 9, hemoglobin 9.4, and platelets 236. AST 35, ALT 74, and alkaline phosphatase 95. ASSESSMENT: 1. Atrial fibrillation with rapid ventricular response. 2. Acute on chronic diastolic heart failure. 3. Hypertension. 4. Severe chronic obstructive pulmonary disease. 5. Pneumonia. 6. Anemia. RECOMMENDATIONS: 1. I will titrate metoprolol succinate to 50 mg every 12 hours. 2. Continue rest of cardiovascular medications. 3. Monitor H and H for signs of any gross bleeding. MD VALDEZ Gomez/VIKTORIYA /[id number]
[2018-07-03] MEDS: TAMSULOSIN HCL 0.4 MG CAP PO SCH (21:47)
[2018-07-03] MEDS: MONTELUKAST SODIUM 10 MG TAB PO SCH (21:47)
[2018-07-03] MEDS: ALPRAZOLAM 0.25 MG TAB PO PRN (23:06)
[2018-07-04] VITALS (17 sets, daily range): BP systolic 111–141; BP diastolic 53–85
[2018-07-04] MEDS: IPRATROPIUM BROMIDE 0.02% 2.5 ML NEB NEB SCH ×6 (03:00→23:10)
[2018-07-04] MEDS: ALPRAZOLAM 0.25 MG TAB PO PRN ×2 (04:02→20:45)
[2018-07-04 04:50] LABS: BASOPHILS % 0.2 % (0.0-1.0); EOSINOPHILS % 0.2 % (0.0-6.0); HEMATOCRIT 35.4 % (38.2-49.6); HEMOGLOBIN 11.1 g/dL (14.0-18.0); LYMPHOCYTES % 7.8 % (18.0-39.1); MEAN CORPUSCULAR HEMOGLOBIN 30.3 pg (28-32); MEAN CORPUSCULAR HGB CONC 31.4 g/dL (31-35); MEAN CORPUSCULAR VOLUME 96.7 fL (81-99); MONOCYTES # (AUTO) 0.8 (0.2-0.8); MONOCYTES % 6.3 % (4.4-11.3); NEUTROPHILS # (AUTO) 10.5 (2.1-6.9); NEUTROPHILS % 84.1 % (38.7-80.0); PLATELET COUNT 229 x10e3/uL (140-360); RED BLOOD COUNT 3.66 x10e6/uL (4.3-5.7); RED CELL DISTRIBUTION WIDTH 13.9 % (11.7-14.4)
[2018-07-04 05:11] LABS: ANION GAP 11.8 mmol/L (8-16); BLOOD UREA NITROGEN 29 mg/dL (7-26); BUN/CREATININE RATIO 36 (6-25); CALCIUM 9.3 mg/dL (8.4-10.2); CARBON DIOXIDE 37 mmol/L (22-29); CHLORIDE 98 mmol/L (98-107); EST GLOMERULAR FILTRATION RATE > 60 ML/MIN (60-); GLUCOSE 112 mg/dL (74-118); POTASSIUM 4.8 mmol/L (3.5-5.1); SODIUM 142 mmol/L (136-145)
[2018-07-04] MEDS: LEVALBUTEROL HCL SOLN NEBU 0.63 MG/3 ML NEB INH SCH ×3 (06:00→23:10)
[2018-07-04] MEDS: DILTIAZEM HCL 30 MG TAB PO SCH ×3 (06:20→18:15)
--- NOTE | 2018-07-04 07:00 | NUR ---
Bedside report given to Merry Le RN. Pt resting in bed with eyes open AAOx3, family at the bedside. No signs of distress noted. Pt reports no pain at this time.
[2018-07-04] MEDS: TIOTROPIUM 18 MCG INH POWDER INH SCH (09:00)
[2018-07-04] MEDS: FUROSEMIDE 20 MG TAB PO SCH (09:07)
[2018-07-04] MEDS: SENNOSIDES 8.6 MG TAB PO SCH ×2 (09:07→17:00)
[2018-07-04] MEDS: DOCUSATE SODIUM LIQD 100 MG/10 ML UDC NG SCH ×2 (09:07→17:00)
[2018-07-04] MEDS: PANTOPRAZOLE SOD 40 MG TABEC PO SCH (09:07)
[2018-07-04] MEDS: APIXABAN 5 MG TABLET PO SCH ×2 (09:07→18:15)
[2018-07-04] MEDS: SODIUM CHLORIDE 1 GM TAB PO SCH (09:07)
[2018-07-04] MEDS: METOPROLOL SUCCINATE 25 MG TAB XL PO SCH ×2 (09:08→20:46)
[2018-07-04] MEDS: GUAIFENESIN/CODEINE 10 ML CUP PO PRN ×3 (09:08→20:45)
[2018-07-04] MEDS: SIMETHICONE 80 MG CHEW PO PRN ×2 (14:20→20:20)
--- NOTE | 2018-07-04 14:45 | NUR ---
Visit made by the Spiritual Care Department Pastoral Visitor, Massiel Balderas. PV provided pastoral presence, prayer, communion, hospitality, and supportive listening. Pastoral Visitor informed pt/family of the scope of [employer] [facility] and availability. LATRICE FUENTES Automotive Design Drafter Spiritual Care Department O: [phone] Pager: [phone] ([phone] number calling from)
--- NOTE | 2018-07-04 19:00 | NUR ---
Report and rounds completed. In bed with family at bedside. Denies pain at this time. Will continue to monitor.
[2018-07-04] MEDS: MONTELUKAST SODIUM 10 MG TAB PO SCH (20:46)
[2018-07-04] MEDS: TAMSULOSIN HCL 0.4 MG CAP PO SCH (20:46)
--- NOTE | 2018-07-04 22:00 | NUR ---
In bed watching tv with family at bedside. No issues or concerns, denies pain. Call light within reach. Will continue to monitor.
[2018-07-04] MEDS: DILTIAZEM HCL 60 MG TAB PO SCH (23:15)
--- NOTE | 2018-07-04 23:16 | Progress Note ---
DATE: 07/04/2018 Cardiology Progress Note SUBJECTIVE: Denies any chest pain, shortness of breath. Overall improved. Atrial fibrillation, rate controlled, on telemetry improved. OBJECTIVE: VITAL SIGNS: Temperature 98.2, heart rate 101, blood pressure 116/56, respiratory rate 25, and O2 saturation 99% on 2 L/min nasal cannula. GENERAL: In no acute distress. Alert. NECK: No JVD. CHEST: Scattered rhonchi. CARDIOVASCULAR: Irregularly irregular rate and rhythm. Normal S1 and S2. Controlled rate. ABDOMEN: Soft, nontender. EXTREMITIES: Trace edema bilateral lower extremities. SKIN: Intact and dry. CARDIOVASCULAR MEDICATIONS: Reviewed. Tamsulosin 0.4 mg at bedtime, diltiazem 60 mg q.4 hours, furosemide 20 mg daily, metoprolol succinate 50 mg every 12 hours, Eliquis 5 mg every 12 hours. LABORATORY DATA: Studies reviewed. Sodium 142, potassium 4.8, chloride 98, bicarbonate 37, BUN 29, creatinine 0.8, glucose 112. White blood cells 12.4, hemoglobin 11.1, and platelets 229. AST 35, ALT 74, total bilirubin 0.5, alkaline phosphatase 95. ASSESSMENT: 1. Acute on chronic diastolic heart failure. 2. Atrial fibrillation. 3. Hypertension. 4. Chronic obstructive pulmonary disease. 5. Pneumonia. RECOMMENDATIONS: 1. Continue current cardiovascular medications. 2. Overall rate control has improved. 3. Upon discharge, outpatient followup is advised in 2-4 weeks. MD VALDEZ Gomez/VIKTORIYA /[id number]
--- NOTE | 2018-07-04 23:30 | NUR ---
RT here to put patient on bipap. Call light within reach. Will continue to monitor.
[2018-07-05] VITALS (8 sets, daily range): BP systolic 94–121; BP diastolic 56–90
[2018-07-05] MEDS: ALPRAZOLAM 0.25 MG TAB PO PRN ×4 (00:50→23:05)
--- NOTE | 2018-07-05 00:50 | NUR ---
Patient requesting medication for anxiety. Xanax 0.125 research methods instructor per PRN order. Patient request to remain off bipap to eat some apple sauce. Daughter at bedside. Will continue to monitor.
--- NOTE | 2018-07-05 01:03 | NUR ---
Re-applied bipap, tolerating well. Call light within reach and daughter at bedside. Will continue to monitor.
[2018-07-05] MEDS: IPRATROPIUM BROMIDE 0.02% 2.5 ML NEB NEB SCH ×6 (03:10→23:10)
--- NOTE | 2018-07-05 04:00 | NUR ---
Offered to remove bipap for patient to drink water. 02 placed at 2L NC, while drinking. Bipap reapplied. Will continue to monitor.
--- NOTE | 2018-07-05 04:28 | NUR ---
Patient called and asked to remove bipap. Stating " my mouth is feeling dry and would like to take break" Bipap removed and 02 2L applied via NC, 02 sat 99%. Daughter at bedside and call light within reach. Will continue to monitor.
--- NOTE | 2018-07-05 05:00 | NUR ---
Daily weight obtained 107.1 lb: removed 2 extra pillows, blown blanket and clement personal blanket for daily weight.
[2018-07-05] MEDS: DILTIAZEM HCL 60 MG TAB PO SCH ×3 (05:15→18:07)
[2018-07-05] MEDS: GUAIFENESIN/CODEINE 10 ML CUP PO PRN ×2 (05:15→21:07)
[2018-07-05] MEDS: LEVALBUTEROL HCL SOLN NEBU 0.63 MG/3 ML NEB INH SCH ×3 (07:00→23:10)
--- NOTE | 2018-07-05 07:31 | NUR ---
pt sitting on side fo bed, no c/o pain or s/s distress at this time. family at bedside. vs stable. will continue to monitor.
[2018-07-05] MEDS: APIXABAN 5 MG TABLET PO SCH ×2 (08:34→18:07)
[2018-07-05] MEDS: SODIUM CHLORIDE 1 GM TAB PO SCH (08:34)
[2018-07-05] MEDS: FUROSEMIDE 20 MG TAB PO SCH (08:34)
[2018-07-05] MEDS: SENNOSIDES 8.6 MG TAB PO SCH ×2 (08:34→18:07)
[2018-07-05] MEDS: PANTOPRAZOLE SOD 40 MG TABEC PO SCH (08:34)
[2018-07-05] MEDS: DOCUSATE SODIUM LIQD 100 MG/10 ML UDC NG SCH ×2 (08:34→18:07)
[2018-07-05] MEDS: METOPROLOL SUCCINATE 25 MG TAB XL PO SCH ×2 (08:36→21:07)
[2018-07-05] MEDS: TIOTROPIUM 18 MCG INH POWDER INH SCH (11:00)
--- NOTE | 2018-07-05 12:53 | Progress Note ---
DATE: 07/05/2018 Cardiology Progress Note SUBJECTIVE: No complaints. OBJECTIVE: VITAL SIGNS: Temperature 97.6, heart rate 98, respiratory rate 22, blood pressure 102/90, O2 saturation 98% on 3 L/minutes nasal cannula. GENERAL: In no acute distress. NECK: No JVD. CHEST: With scattered rhonchi. CARDIOVASCULAR: Irregularly irregular rate and rhythm. Normal S1, S2. ABDOMEN: Soft. EXTREMITIES: Trace edema. CARDIOVASCULAR MEDICATIONS: Metoprolol succinate 50 mg every 12 hours, Eliquis 5 mg b.i.d., furosemide 20 mg p.o. daily, Cardizem 60 mg every 6 hours, tamsulosin 0.4 mg at bedtime. LABORATORY DATA: Studies; white blood cells 12.4, hemoglobin 11.1, platelets 229. Sodium 142, potassium 4.8, chloride 98, bicarbonate 37, BUN 29, creatinine 0.8, glucose 112, calcium 9.3. TELEMETRY: Atrial fibrillation with controlled ventricular response. ASSESSMENT: 1. Acute on chronic diastolic heart failure. 2. Atrial fibrillation. 3. Hypertension. 4. Chronic kidney disease. 5. Pneumonia. RECOMMENDATIONS: 1. Continue current cardiovascular medications. 2. Upon discharge, outpatient followup in 2 to 4 weeks. MD VALDEZ Gomez/VIKTORIYA /[id number]
[2018-07-05] MEDS: SIMETHICONE 80 MG CHEW PO PRN ×2 (13:01→18:37)
--- NOTE | 2018-07-05 17:35 | NUR ---
DC PLANNING: DISCUSSED PT IN ROUNDS. PT RECOMMENDED HOME W HOME HEALTH. LTAC ORDER WAS RECEIVED 06/28. PT HAS [facility] CAREGIVERS. ST RECOMMEND OUTPT NMES. DISCUSSED PT NOT ABLE TO HAVE HH AND OUTPT SERVICES TOGETHER. CM CALL AND LEFT VM FOR [facility], DIR OF REHAB SERVICES TO SEE IF PT ELIGIBLE FOR OUTPT PHYSICAL THERAPY. WILL F/U TOMORROW.
--- NOTE | 2018-07-05 19:00 | NUR ---
Report and rounds completed. Patient sitting on side of bed with family at bedside. Call light within reach. Will continue to monitor.
[2018-07-05] MEDS: MONTELUKAST SODIUM 10 MG TAB PO SCH (21:07)
[2018-07-05] MEDS: TAMSULOSIN HCL 0.4 MG CAP PO SCH (21:07)
--- NOTE | 2018-07-05 23:00 | NUR ---
RT here to apply bipap, tolerating well. Will continue to monitor.
[2018-07-06] VITALS (8 sets, daily range): BP systolic 99–114; BP diastolic 55–66
[2018-07-06] MEDS: DILTIAZEM HCL 60 MG TAB PO SCH ×5 (00:05→23:29)
--- NOTE | 2018-07-06 01:42 | NUR ---
Called to room by daughter. Patient requesting to remove bipap for break. Education reinforced of importance of bipap at hs, verbalized understanding. on MD. Will continue to monitor.
[2018-07-06] MEDS: IPRATROPIUM BROMIDE 0.02% 2.5 ML NEB NEB SCH ×6 (03:20→23:15)
[2018-07-06] MEDS: ALPRAZOLAM 0.25 MG TAB PO PRN ×3 (03:27→22:37)
[2018-07-06] MEDS: SIMETHICONE 80 MG CHEW PO PRN ×3 (03:28→20:49)
--- NOTE | 2018-07-06 03:28 | NUR ---
Encourage patient to try and use bipap again, patient agreed. Bipap applied, tolerating well. Call light within reach and daughter at bedside. Will continue to monitor.
[2018-07-06] MEDS: GUAIFENESIN/CODEINE 10 ML CUP PO PRN ×3 (05:45→23:29)
--- NOTE | 2018-07-06 05:45 | NUR ---
Patient requested to remove bipap. Placed on 02 2L NC. Daughter remains at bedside and call light within reach.
[2018-07-06] MEDS: LEVALBUTEROL HCL SOLN NEBU 0.63 MG/3 ML NEB INH SCH ×3 (07:50→23:15)
[2018-07-06] MEDS: FUROSEMIDE 20 MG TAB PO SCH ×2 (09:00→09:31)
[2018-07-06] MEDS: SENNOSIDES 8.6 MG TAB PO SCH ×3 (09:00→16:25)
[2018-07-06] MEDS: PANTOPRAZOLE SOD 40 MG TABEC PO SCH (09:31)
[2018-07-06] MEDS: DOCUSATE SODIUM LIQD 100 MG/10 ML UDC NG SCH ×2 (09:31→09:40)
[2018-07-06] MEDS: TIOTROPIUM 18 MCG INH POWDER INH SCH (09:31)
[2018-07-06] MEDS: SODIUM CHLORIDE 1 GM TAB PO SCH (09:31)
[2018-07-06] MEDS: APIXABAN 5 MG TABLET PO SCH ×2 (09:31→17:09)
[2018-07-06] MEDS: METOPROLOL SUCCINATE 25 MG TAB XL PO SCH ×2 (09:40→20:44)
--- NOTE | 2018-07-06 09:42 | NUR ---
DR GIBBS ON UNIT, AWARE OF PT HR/BP. ORDERED TO GIVE METOPROLOL AND HOLD LASIX. DR CERNA AND DR PINK ON UNIT, AWARE. PT TO DOWNGRADE BUT CONTINUE TO MONITOR RESP/CARDIAC. PT REFUSED MEDS FOR BM.
--- NOTE | 2018-07-06 12:18 | Progress Note ---
DATE: 07/06/2018 Cardiology Progress Note SUBJECTIVE: No complaints today. Shortness of breath overall improved. Denies chest pain. OBJECTIVE: VITAL SIGNS: Temperature 98.3, heart rate 100, respiratory rate 20, blood pressure 99/57, O2 saturation 100% on 2 L/minute nasal cannula. GENERAL: In no acute distress, alert. NECK: No JVD. CHEST: Basilar rales. CARDIOVASCULAR: Irregularly irregular rate and rhythm. Normal S1 and S2. ABDOMEN: Soft and nontender. EXTREMITIES: Trace edema to bilateral lower extremities. Intact skin. CARDIOVASCULAR MEDICATIONS: Reviewed. Metoprolol succinate 50 mg every 12 hours, Eliquis 5 mg b.i.d., diltiazem 60 mg every 6 hours, and furosemide 20 mg daily. STUDIES: Reviewed. No labs today. TELEMETRY: Atrial fibrillation. ASSESSMENT: 1. Acute on chronic diastolic heart failure. 2. Atrial fibrillation. 3. Hypertension. 4. Chronic kidney disease. 5. Pneumonia. RECOMMENDATIONS: 1. Continue current cardiovascular medications. 2. Outpatient followup in 4 weeks post discharge. MD VALDEZ Gomez/VIKTORIYA /[id number]
--- NOTE | 2018-07-06 13:17 | NUR ---
PROVIDED A WALKER FOR PATIENT GOT GREEN SHEET SIGNED AND PUT ON CHART WITH ORDER AND FACESHEET STAPLED TOGETHER FOR DOCTOR SIGNATURE
--- NOTE | 2018-07-06 16:28 | NUR ---
pt and his woodworking machine offbearer c/o pt wiping his bottom after BM to rough and causing irritation and breakdown around anus upto sacrum. requesting 'special cream' to put on it. wound care order placed and vm left for MD. Addendum: 07/06/18 at 1638 by Karen Meza RN per MD, no new orders. continue current tx of rectal/sacral area
--- NOTE | 2018-07-06 18:11 | NUR ---
RECEIVED PATIENT FROM ROOM 199. PATIENT A/O X3, EVEN RESPIRATIONS ON 2LNC. BOWEL SOUNDS ACTIVE, BM TODAY. SKIN BREAKDOWN TO SACRUM, PINK FOAM PAD IN PLACE, WOUND CARE CONSULT PLACED. NO COMPLAINTS OF PAIN AT THIS TIME. 1+ PITTING EDEMA TO BILATERAL FEET. LEFT FA 20 GAUGE [address] SL PATENT AND INTACT. TELE #10. PATIENT AMBULATORY WITH STANDBY ASSIST. FAMILY AT BEDSIDE. CALL LIGHT IN REACH, BED LOW, WHEELS LOCKED, SIDE RAILS X2. WILL CONTINUE TO MONITOR PATIENT.
[2018-07-06] MEDS: TAMSULOSIN HCL 0.4 MG CAP PO SCH (20:43)
[2018-07-06] MEDS: MONTELUKAST SODIUM 10 MG TAB PO SCH (20:43)
[2018-07-06] MEDS ORDERED: GUAIFENESIN/CODEINE 10 ML CUP ONE (23:12)
[2018-07-07] VITALS (8 sets, daily range): BP systolic 91–116; BP diastolic 50–64
[2018-07-07] MEDS: IPRATROPIUM BROMIDE 0.02% 2.5 ML NEB NEB SCH ×6 (03:00→23:00)
--- NOTE | 2018-07-07 03:00 | NUR ---
PATIENT STOP USING BIPAP.
[2018-07-07] MEDS: DILTIAZEM HCL 60 MG TAB PO SCH ×3 (05:33→18:00)
[2018-07-07 06:14] LABS: BASOPHILS % 0.1 % (0.0-1.0); EOSINOPHILS # (AUTO) 0.2 (0.0-0.4); HEMATOCRIT 30.9 % (38.2-49.6); LYMPHOCYTES % 9.5 % (18.0-39.1); MEAN CORPUSCULAR HEMOGLOBIN 30.8 pg (28-32); MEAN CORPUSCULAR HGB CONC 32.4 g/dL (31-35); MEAN CORPUSCULAR VOLUME 95.1 fL (81-99); MONOCYTES # (AUTO) 0.9 (0.2-0.8); MONOCYTES % 8.2 % (4.4-11.3); NEUTROPHILS # (AUTO) 8.4 (2.1-6.9); NEUTROPHILS % 79.4 % (38.7-80.0); PLATELET COUNT 183 x10e3/uL (140-360); RED BLOOD COUNT 3.25 x10e6/uL (4.3-5.7); RED CELL DISTRIBUTION WIDTH 13.4 % (11.7-14.4)
[2018-07-07 06:30] LABS: ANION GAP 10.4 mmol/L (8-16); BLOOD UREA NITROGEN 26 mg/dL (7-26); BUN/CREATININE RATIO 34 (6-25); CALCIUM 8.8 mg/dL (8.4-10.2); CARBON DIOXIDE 34 mmol/L (22-29); CHLORIDE 99 mmol/L (98-107); CREATININE, SERUM 0.77 mg/dL (0.72-1.25); EST GLOMERULAR FILTRATION RATE > 60 ML/MIN (60-); GLUCOSE 97 mg/dL (74-118); POTASSIUM 3.4 mmol/L (3.5-5.1); SODIUM 140 mmol/L (136-145)
[2018-07-07] MEDS: LEVALBUTEROL HCL SOLN NEBU 0.63 MG/3 ML NEB INH SCH ×3 (07:24→20:00)
[2018-07-07] MEDS ORDERED: POTASSIUM CHLORIDE 10MEQ EA PO NR (09:00)
[2018-07-07] MEDS: DOCUSATE SODIUM LIQD 100 MG/10 ML UDC NG SCH ×2 (09:00→21:00)
[2018-07-07] MEDS: TIOTROPIUM 18 MCG INH POWDER INH SCH (09:00)
[2018-07-07] MEDS: PANTOPRAZOLE SOD 40 MG TABEC PO SCH (09:00)
[2018-07-07] MEDS: SENNOSIDES 8.6 MG TAB PO SCH ×2 (09:00→21:00)
[2018-07-07] MEDS: FUROSEMIDE 20 MG TAB PO SCH (10:00)
[2018-07-07] MEDS: APIXABAN 5 MG TABLET PO SCH ×2 (10:00→18:00)
[2018-07-07] MEDS: SODIUM CHLORIDE 1 GM TAB PO SCH (10:00)
[2018-07-07] MEDS: METOPROLOL SUCCINATE 25 MG TAB XL PO SCH ×2 (10:00→21:00)
[2018-07-07] MEDS: GUAIFENESIN/CODEINE 10 ML CUP PO PRN ×3 (11:09→23:18)
[2018-07-07] MEDS: SIMETHICONE 80 MG CHEW PO PRN ×2 (11:09→19:25)
[2018-07-07] MEDS ORDERED: POTASSIUM CHLORIDE 10MEQ EA ONE (12:36)
--- NOTE | 2018-07-07 12:37 | NUR ---
SPOKE WITH DAUGHTER JIMBO HUDSON [phone] VIA PHONE WITH CAREGIVER IN ROOM AND PT TO ANSWER QUESTIONS ABOUT HOSPICE REFERRAL, WAS ABLE TO ANSWER QUESTIONS, FAMILY IN AGREEMENT TO SPEAK WITH [facility] SIGNED CHOICE FILED IN CHART. CONTACTED ROSSANA WHO WILL SPEAK WITH FAMILY AFTER 5PM TODAY, PER FAMILY REQUEST. WILL UPDATE WITH PROGRESS RAJ GET INFORMATION.
--- NOTE | 2018-07-07 13:55 | Progress Note ---
DATE: 07/07/2018 Cardiology Progress Note SUBJECTIVE: No complaints today. Shortness of breath improved. Denies chest pain. OBJECTIVE: VITAL SIGNS: Reviewed. Temperature 97.4, heart rate 95, respiratory rate 22, blood pressure 116/64, and O2 saturation 100%. BMI 17.9. GENERAL: In no acute distress. Alert. NECK: No JVD. CHEST: Basilar rales. CARDIOVASCULAR: Irregularly irregular rate and rhythm. Normal S1, S2. No S3 or S4. ABDOMEN: Soft and nontender. EXTREMITIES: Trace edema. Warm distal extremities. CARDIOVASCULAR MEDICATIONS: Reviewed. Tamsulosin 0.4 mg at bedtime, furosemide 20 mg daily, diltiazem 60 mg q.6 h., KCl 20 mEq as needed, metoprolol succinate 50 mg every 12 hours, and Eliquis 5 mg every 12 hours. LABORATORY DATA: Studies reviewed. Sodium 140, potassium 3.4, chloride 99, bicarbonate 34, BUN 26, creatinine 0.77, and glucose 97. White blood cells 10.5, hemoglobin 10, and platelets 183. AST 35, total bilirubin 0.5, alkaline phosphatase 95, and ALT is 74. ASSESSMENT: 1. [id number] diastolic heart failure. 2. Atrial fibrillation. 3. Hypertension. 4. Severe chronic obstructive pulmonary disease. 5. Pneumonia. 6. Cachexia. RECOMMENDATIONS: The patient remains cachectic and with somewhat more deconditioned state and it is the third admission in the last several weeks. He feels better from the recovery of pneumonia, however, his underlying severe COPD remains an issue and conversations regarding alternatives to current care including hospice have been initiated. I feel this is very appropriate considering the overall nature of the disease and his recurrent readmissions. I have discussed this with the patient as well as with daughter. We will be available to proceed with his care as he seems fit. For now, we are continuing diuretics, rate control strategy, antihypertensives, and anticoagulation with current medication. He is okay to discharge from a cardiovascular standpoint from acute hospitalization status. Disposition pending the patient's decisions along with primary cares. Please feel free to call with any questions or concerns # . Dylan Lora MD AFPreethi/VIKTORIYA /[id number]
--- NOTE | 2018-07-07 14:19 | NUR ---
Nutrition Intervention Note RD Recommendation(s) for Physician: -Continue current diet as ordered -Continue Ensure Clear TID as ordered Plan of Care: RD following, monitoring for tolerance and adequacy Nutrition reason for involvement: f/u RD Assessment 07/07: Chart reviewed. Visited pt in the room. Pt reported improvement in his appetite with ~75% meal intake. Spoke with SEWING MACHINE OPERATOR PLASTIC ZIPPER Zina, she rec chopped diet. Current diet is appropriate and tolerated by pt. Pt also drank >50% of Ensure ordered. No complains of nausea or vomiting. Pt denied any swallowing difficulty. Will continue to monitor and follow. 07/02: Follow up: Pt was seen being evaluated by SEWING MACHINE OPERATOR PLASTIC ZIPPER. SEWING MACHINE OPERATOR PLASTIC ZIPPER recommended regular diet with thin liquids, no altered textured. Family was at bedside and can speak Indonesian. They reported pt has an improved appetite. He does not like to consume the Ensure clear d/t the flavor and acidity, but he does like to consume Ensure Enlive supplements, but these supplements tend to give him bloating/gas symptoms. Told family member that the Ensure Enlive supplement are suitable for lactose intolerant people. Family member was open to trying the Ensure pudding for pt, spoke to nurse about supplement order. Told family members if pt has similar GI symptoms, he does not need to consume. Pt is on fluid restriction per family member. They had no other questions at this time. Will continue to monitor. Initial encounter with patient. Pt is Montenegrin speaking. Daughter and RN present at time of visit and translated for the RD. Pt with involuntary wt loss during last hospital stay of 2-3 weeks. Pt experienced GI upset and mouth sores which decreased Po intake and led to wt loss. Pt is also bed bound. Pt has missing teeth, but denies any difficulty chewing or swallowing. Daughter states that Pt has been eating better and has gained 3 pounds, however, Pt has had edema. Willing to try Ensure supplement. Will send with meals TID. Po intake has improved per daughter. Pt ate about 75% of meal. Pt with hollow orbitals, temporal wasting, prominent clavicle, ribs, acromion process, scapula, loss of lean body mass noted in bilateral upper and lower extremities. Principal Problems/Diagnoses: HCAP PMH: COPD GERD, Diverticulitis, heart failure GI: Abd: soft, non tender, flatus present Skin: Intact Labs: 07/07: K 3.4 L 07/02: Co2: 34, Creat 29, BUN, Creat 35, Gluc 120 Meds: lasix, eliquis, NaCl, protonix Malnutrition Evaluation (06/26/2018) The patient meets criteria for unspecified SEVERE protein-calorie malnutrition. Energy intake: <75% of estimated energy requirements for >1 month Weight loss: > 5% in 1 month (Chronic) Fat loss: Severe Muscle loss:Severe Supporting Evidence: Fluid accumulation: Mild, Functional Status: measurably reduced Diet Education Needs Assessment: Diet education not indicated. Ht:68 Wt:121lbs BMI:18.4kg/m2 IBW:154lbs Estimated Nutritional Needs: 1650 - 1925 kcals at 30-35 kcals/kg/bw 82-110g of protein at 1.5-2g/kg/bw Nutrition Prescription (Diet Order): Cardiac diet Food Allergies: No known food allergies Diet Adequacy: Meeting calorie needs, Meeting protein needs, Meeting fluid needs Tolerance: Tolerating PO Nutrition Care Level: low Nutrition Diagnosis: None at this time. Goal: Patient will meet 75-100% of estimated needs by follow up Progress: Goal met Interventions: Fat, chol, mineral (sodium) diet, Commercial beverage Monitoring/Evaluation: Total energy intake, Total protein intake, Liquid supplement, Weight change. Jennifer Saul, MS, RD, LD
--- NOTE | 2018-07-07 14:35 | NUR ---
SPOKE WITH TRADITIONS THEY ARE NOT IN NETWORK WITH INSURANCE, CALLED [facility] [phone] TO FIND OUT IF PT HAS HOSPICE BENEFITS AND WHOM IS IN NETWORK. SPOKE WITH KP TO SEE IF HE HAS HOSPICE BENEFITS, SHE STATES HE DOES HAVE THE BENEFITS AND THERE ARE THREE THAT ARE IN NETWORK FORMERLY [facility], [facility], , [facility] AND [facility] [phone]. CALLED JIMBO DAUGHTER AND SPOKE WITH HER ABOUT THE OPTIONS THAT WERE GIVEN, SHE CHOOSES [facility] CALLED [facility] TO INITIATE THE REFERRAL.
--- NOTE | 2018-07-07 14:54 | NUR ---
WOUND CARE CONSULTATION - INITIAL EVALUATION Patient admitted from home to ER for Dyspnea. DX: HCAP, CHF, PNA, COPD WBC10.56 HGB10 HCT30.9 GLU97 WOUND CARE CONSULTED FOR EVALUATION OF SACRAL AREA- PATIENT VISIT: Patient AAOX3, Calm and Cooperative. Family member at bedside. Family member states patient has been refusing to turn while in bed. Called her daughter during visit and allowed me to discuss with daughter importance of turning and repositioning while in bed. Physical therapy at bedside to assist with ambulation. Patient able to turn self when prompted. Education provided to patient and verbalizes understanding but will require constant reinforcement. Veto Score 18 Regular Visco Mattress Active LOS 11 days Patient on back with head of bed at 45 degrees. Patient turned left and zinc oxide barrier cream in place making it difficult to visualize. Cream removed and noted non blanchable maroon/purple areas to Bilateral Sacrogluteal areas. Complains of tenderness on palpation. Areas 1x1cm annular shaped. IMPRESSION: Bilateral Sacrogluteal Areas - Deep Tissue Injuries 1. Bilateral Sacrogluteal Area - DTI - Cleanse area with mild soap and water then pat dry thoroughly - Apply Junaid Cream and Cover with Allevyn Foam Sacrum Dressing q12h and PRN Soiling. 2. Initiate Alternating Pressure Air Mattress and set to patient current weight. 3. Bilateral Heel Protectors / Offload Heels with Pillows while in bed. 3. STRICT Turning and Repositioning Every 2 Hours using turning clock schedule. 4. Re-issue turning wedges to assist with turning and repositioning while in bed. 5. HOB elevated to < / = 30 Degrees as tolerated. Thank you for consulting with Wound Care. Addendum: 07/07/18 at 1522 by Jai Maher RN Amended: Links added.
--- NOTE | 2018-07-07 19:15 | NUR ---
Received patient in report. Patient sitting in chair at bedside with family members present. No pain reported, no S&S of distress noted. Call light in reach.
[2018-07-07] MEDS: TAMSULOSIN HCL 0.4 MG CAP PO SCH (21:07)
[2018-07-07] MEDS: MONTELUKAST SODIUM 10 MG TAB PO SCH (21:08)
[2018-07-07] MEDS: ALPRAZOLAM 0.25 MG TAB PO PRN (21:11)
[2018-07-07] MEDS: ZINC OXIDE / BALSAM PERU 30 GM TUBE TOP SCH (23:18)
[2018-07-08] MEDS: DILTIAZEM HCL 60 MG TAB PO SCH ×3 (00:34→12:19)
[2018-07-08 00:55] VITALS: BP 127/71
[2018-07-08] MEDS: ALPRAZOLAM 0.25 MG TAB PO PRN ×2 (01:23→16:17)
[2018-07-08] MEDS: IPRATROPIUM BROMIDE 0.02% 2.5 ML NEB NEB SCH ×4 (03:00→15:00)
[2018-07-08] MEDS: SIMETHICONE 80 MG CHEW PO PRN ×2 (03:44→13:54)
[2018-07-08 05:43] VITALS: BP 96/51
[2018-07-08] MEDS: LEVALBUTEROL HCL SOLN NEBU 0.63 MG/3 ML NEB INH SCH ×2 (07:00→15:00)
[2018-07-08] MEDS: PANTOPRAZOLE SOD 40 MG TABEC PO SCH (07:30)
[2018-07-08 08:52] VITALS: BP 125/64
[2018-07-08] MEDS: ZINC OXIDE / BALSAM PERU 30 GM TUBE TOP SCH (09:00)
[2018-07-08] MEDS: GUAIFENESIN/CODEINE 10 ML CUP PO PRN (09:00)
[2018-07-08] MEDS: SENNOSIDES 8.6 MG TAB PO SCH (09:00)
[2018-07-08] MEDS: DOCUSATE SODIUM LIQD 100 MG/10 ML UDC NG SCH (09:00)
[2018-07-08] MEDS: FUROSEMIDE 20 MG TAB PO SCH (09:16)
[2018-07-08] MEDS: METOPROLOL SUCCINATE 25 MG TAB XL PO SCH (09:16)
[2018-07-08] MEDS: SODIUM CHLORIDE 1 GM TAB PO SCH (09:16)
[2018-07-08] MEDS: APIXABAN 5 MG TABLET PO SCH ×2 (09:16→16:18)
--- NOTE | 2018-07-08 09:17 | NUR ---
Patient alert and responsive, OOB assisted to R/R and on chair at this time for breakfast, no aspirations noted, tolerated meds, AFib with Tachy and medicated with beta blockers, no edema noted, on O2 2 L NC, will monitor, caregiver (personal) in room with patient
[2018-07-08 10:12] VITALS: BP 125/64
[2018-07-08 12:25] VITALS: BP 122/66
--- NOTE | 2018-07-08 14:32 | NUR ---
Transportation has been set up by [facility] for 3:30pm today. CM informed Dr. Dee and TRANG Marquez.
[2018-07-08] MEDS: TIOTROPIUM 18 MCG INH POWDER INH SCH (15:09)
--- NOTE | 2018-07-08 16:27 | NUR ---
Rounds by attending, palliative care established with [facility] and CM confirmed in place. Meds reconciled for discharge by MD. Provided patient with discharge information, on O2 2L NC, IV line removed and cath tip in place, Pressure dressing applied, medicated for anxiety. Picked up at this time by EMS as patient is discharged.
--- NOTE | 2018-07-08 16:36 | Progress Note ---
DATE: 07/08/2018 Cardiology Progress Note SUBJECTIVE: Shortness of breath improved. Denies chest pain. Has no other complaints at this time. OBJECTIVE: VITAL SIGNS: Temperature 96.9, heart rate 118, blood pressure 122/66, respiratory rate 22, O2 saturation 95%. GENERAL: No acute distress, alert. NECK: No JVD. CHEST: With scattered rhonchi. CARDIOVASCULAR: Irregularly irregular rate and rhythm. Normal S1, S2. ABDOMEN: Soft, nontender. EXTREMITIES: Trace edema. SKIN: Intact. CARDIOVASCULAR MEDICATIONS: Reviewed. Remains on tamsulosin 0.4 mg at bedtime, furosemide 20 mg p.o. daily, diltiazem 60 mg q.6 hours, metoprolol succinate 50 mg every 12 hours, Eliquis 5 mg every 12 hours. LABORATORY DATA: Studies reviewed. Creatinine 0.7, sodium 140, bicarbonate 34, white blood cells 10.5, hemoglobin 10, platelets 183, normal transaminases. ASSESSMENT: 1. Acute on chronic diastolic heart failure. 2. Paroxysmal atrial fibrillation. 3. Severe chronic obstructive pulmonary disease. 4. Pneumonia. 5. Hypertension. RECOMMENDATIONS: 1. Continue current cardiovascular medications. 2. Outpatient followup advised three weeks post discharge. MD VALDEZ Gomez/VIKTORIYA /[id number]
--- NOTE | 2018-07-09 04:48 | Discharge Summary ---
FNAL DISCHARGE DIAGNOSES: 1. Community-acquired pneumonia. 2. Chronic obstructive pulmonary disease. 3. Discharge to palliative care with hospice. CONSULTANTS: We had Pulmonary, Cardiology . PHYSICAL EXAMINATION: VITAL SIGNS: Temperature 96.9, pulse 86, respiratory rate is 20, blood pressure 122/66, and pulse ox 98% on 2 L nasal cannula. LAB FINDINGS: Show white count of , hematocrit 31, and platelets of 183. Chemistry, sodium 140, potassium 3.4, chloride 99, bicarb 34, anion gap of 10, BUN is 26, creatinine is 0.77, calcium is 8.8. Blood cultures were negative. IMAGING STUDIES: Chest x-ray concerning for underlying pneumonia. CT chest concerning for bilateral lower lobe consolidation with air bronchograms. He has extensive emphysema. Abdominal x-ray, moderate amount of stool in the proximal colon. Modified-barium swallow demonstrates laryngeal penetration with trace amount of aspiration. HOSPITAL COURSE: A 78-year-old male with chronic moderate protein-calorie malnutrition with advanced emphysema with multiple admissions to the hospital. Of note, he has known COPD, hypertension, atrial fibrillation on anticoagulation, comes into [facility] with productive cough, increased heart rate in atrial fibrillation with heart rate in the 120s. While here, Cardiology saw him and medications were adjusted accordingly as well as anticoagulation medication. Heart rate was better controlled prior to being discharged. . The patient had a prolonged hospital stay, awaiting for decision for the family in terms of palliative care hospice. Pulmonary was consulted in which he was treated for underlying healthcare associated pneumonia and IV antibiotics. Blood cultures were negative. The patient's symptoms improved prior to being discharged home. After further discussion, it seems that the family has agreed to palliative care and hospice services. The patient was eventually then discharged to [facility] [employer] as per family and patient's wishes. I discussed this with family at bedside and they verbalized understanding. On discharge, the patient is doing well no other complaints. On the day of discharge, vital signs stable, labs reviewed and stable. The patient seen, evaluated, and examined thoroughly on the day of discharge with no other complaints. The patient verbalized understanding and agrees to plan of care. A followup appointment as an outpatient with primary care physician in 1 week and 2 weeks' time. The patient will be discharged to [facility] with hospice services. MEDICATIONS: See med reconciliation form. DISPOSITION: To home with hospice. CONDITION: Stable. DIET: Heart healthy. In the event of any worsening symptoms, the patient was advised to come back to the ED for further evaluation. Discharge summary took greater than 35 minutes. MD OLIVA Mazariegos/MODL /[id number]
== END 2018-07-08 16:43 | disposition hospice, home (50) | DRG 177 ==
LOC: ER 13:43 → ERHOLD 16:36 → MED/SURG3 17:45 → ICU 06-29 02:30 → IMCU 07-04 18:01 → MED/SURG 07-06 18:12
PROVIDERS: ADMIT Internal Medicine; ATTEND Internal Medicine
DX: J15.6 Pneumonia due to other Gram-negative bacteria (principal); E43 Unspecified severe protein-calorie malnutrition; I50.33 Acute on chronic diastolic (congestive) heart failure; J44.0 Chronic obstructive pulmonary disease with (acute) lower respiratory infection; Z68.1 Body mass index [BMI] 19.9 or less, adult; J96.11 Chronic respiratory failure with hypoxia; I13.0 Hypertensive heart and chronic kidney disease with heart failure and stage 1 through stage 4 chronic kidney disease, or unspecified chronic kidney disease; I50.32 Chronic diastolic (congestive) heart failure; J44.1 Chronic obstructive pulmonary disease with (acute) exacerbation; I48.0 Paroxysmal atrial fibrillation; Z79.01 Long term (current) use of anticoagulants; J44.9 Chronic obstructive pulmonary disease, unspecified; N18.9 Chronic kidney disease, unspecified; Z87.891 Personal history of nicotine dependence; R00.2 Palpitations; N40.1 Benign prostatic hyperplasia with lower urinary tract symptoms; R33.8 Other retention of urine; D64.9 Anemia, unspecified; K59.00 Constipation, unspecified; F41.9 Anxiety disorder, unspecified; L89.150 Pressure ulcer of sacral region, unstageable
CPT/HCPCS: 36415; 71045; 71250; 74018; 74230; 80048; 80053; 82550; 82553; 82805; 82948; 84484; 85025; 87040; 93005; 94640; 94660; 94664; 96367; 96376; 97139; 99284; J2920; J3370; J7030; J7050

== ENCOUNTER → 2020-01-18 | Day surgery (SDC) | payer OTHER ==
[2020-01-13 10:53] LABS: BASOPHILS % 0.6 % (0.0-1.0); EOSINOPHILS # (AUTO) 0.1 (0.0-0.4); EOSINOPHILS % 0.9 % (0.0-6.0); HEMATOCRIT 40.3 % (38.2-49.6); HEMOGLOBIN 13.2 g/dL (14.0-18.0); LYMPHOCYTES # (AUTO) 0.6 (1.0-3.2); LYMPHOCYTES % 8.8 % (18.0-39.1); MEAN CORPUSCULAR HEMOGLOBIN 31.3 pg (28-32); MEAN CORPUSCULAR HGB CONC 32.8 g/dL (31-35); MEAN CORPUSCULAR VOLUME 95.5 fL (81-99); MONOCYTES # (AUTO) 0.7 (0.2-0.8); MONOCYTES % 10.4 % (4.4-11.3); NEUTROPHILS # (AUTO) 5.2 (2.1-6.9); PLATELET COUNT 164 x10e3/uL (140-360); RED BLOOD COUNT 4.22 x10e6/uL (4.3-5.7); RED CELL DISTRIBUTION WIDTH 12.9 % (11.7-14.4)
[2020-01-13 11:15] LABS: INR 1.12
[2020-01-13 11:16] LABS: PARTIAL THROMBOPLASTIN TIME 35.3 seconds (23.8-35.5)
[2020-01-13 11:24] LABS: ALANINE AMINOTRANSFERASE 16 IU/L (0-55); ALBUMIN 3.9 g/dL (3.5-5.0); ALBUMIN/GLOBULIN RATIO 1.3 (0.8-2.0); ALKALINE PHOSPHATASE 59 IU/L (40-150); ANION GAP 12.3 mmol/L (8-16); BLOOD UREA NITROGEN 13 mg/dL (7-26); BUN/CREATININE RATIO 12 (6-25); CALCIUM 9.6 mg/dL (8.4-10.2); CARBON DIOXIDE 28 mmol/L (22-29); CHLORIDE 98 mmol/L (98-107); CREATININE, SERUM 1.08 mg/dL (0.72-1.25); EST GLOMERULAR FILTRATION RATE > 60 ML/MIN (60-); GLUCOSE 82 mg/dL (74-118); POTASSIUM 5.3 mmol/L (3.5-5.1); SODIUM 133 mmol/L (136-145)
[~2020-01-18] VITALS: Ht 167.6 cm; Wt 61.2 kg
[2020-01-18] VITALS (10 sets, daily range): BP systolic 111–132; BP diastolic 58–88
[~2020-01-18] MED LIST: ADVAIR 250-501 EACH INH; APIXABAN PO; ASPIRIN81 MG PO; ATORVASTATIN CA20 MG PO; BROMFED DM COU118 ML PO; DILTIAZEM HCL30 MG PO; ELIQUIS2.5 MG PO; FENTANYL CITRATE/PF 100MCG/2 ML INJ ONE; FLOMAX0.4 MG PO; HEPARIN SOD/SOD CHLORIDE 2,000 ML ONE; INCRUSE ELLI62.5 MCG INH; IOPAMIDOL 370 MG/ML 200 ML INFUS..BTL INJ ONE; LASIX20 MG PO; LIDOCAINE HCL 2% LOCAL 20 ML VIAL ONE; LORATADINE10 MG PO; LORAZEPAM0.5 MG PO; METOPROLOL SUCC25 MG PO; METOPROLOL TART25 MG PO; MIDAZOLAM HCL 2 MG/2 ML VIAL ONE; OMEPRAZOLE40 MG PO; PROVENTIL HFA6.7 GM INH; SINGULAIR10 MG PO; SODIUM CHLORIDE 0.9% 1000ML 1,000 ML ONE; SODIUM CHLORIDE1 GM PO; SPIRIVA18 MCG INH; VERAPAMIL HCL 2.5 MG/ML 2 ML VIAL ONE; [UNRECOGNIZED DRUG - OTHER] INH
== END | disposition home or self-care (01) ==
LOC: CATH LAB 07:25
PROVIDERS: ATTEND Internal Medicine Cardiovascular Disease
DX: I25.10 Atherosclerotic heart disease of native coronary artery without angina pectoris (principal); R94.39 Abnormal result of other cardiovascular function study; Z01.812 Encounter for preprocedural laboratory examination; Z20.828 Contact with and (suspected) exposure to other viral communicable diseases
CPT/HCPCS: 36415; 80053; 85025; 85610; 85730; 93458; C1887; J2001; J3010; J7030; Q9967; U0002; 99152; J2250

== ENCOUNTER 2022-04-25 15:19 | Inpatient (IN) | payer OTHER ==
[~2022-04-25] VITALS: Ht 167.6 cm; Wt 61.2 kg
[~2022-04-25 15:19] MED LIST changes: -FENTANYL CITRATE/PF 100MCG/2 ML INJ ONE; -HEPARIN SOD/SOD CHLORIDE 2,000 ML ONE; -IOPAMIDOL 370 MG/ML 200 ML INFUS..BTL INJ ONE; -LIDOCAINE HCL 2% LOCAL 20 ML VIAL ONE; -MIDAZOLAM HCL 2 MG/2 ML VIAL ONE; -SODIUM CHLORIDE 0.9% 1000ML 1,000 ML ONE; -VERAPAMIL HCL 2.5 MG/ML 2 ML VIAL ONE
[2022-04-25] MEDS ORDERED: METHYLPREDNISOLONE SOD SUCC 125 MG/2ML VIAL IV STA (15:51)
[2022-04-25] MEDS ORDERED: METOPROLOL TARTRATE INJ 1 MG/ML VIAL IV ONE (16:00)
[2022-04-25 16:04] LABS: BASOPHILS % 0.2 % (0.0-1.0); EOSINOPHILS % 0.1 % (0.0-6.0); HEMATOCRIT 45.2 % (38.2-49.6); HEMOGLOBIN 15.1 g/dL (14.0-18.0); LYMPHOCYTES # (AUTO) 0.3 (1.0-3.2); LYMPHOCYTES % 2.6 % (18.0-39.1); MEAN CORPUSCULAR HEMOGLOBIN 30.9 pg (28-32); MEAN CORPUSCULAR HGB CONC 33.4 g/dL (31-35); MEAN CORPUSCULAR VOLUME 92.6 fL (81-99); MONOCYTES # (AUTO) 0.3 (0.2-0.8); MONOCYTES % 2.9 % (4.4-11.3); NEUTROPHILS # (AUTO) 9.6 (2.1-6.9); NEUTROPHILS % 93.8 % (38.7-80.0); PLATELET COUNT 164 x10e3/uL (140-360); RED BLOOD COUNT 4.88 x10e6/uL (4.3-5.7); RED CELL DISTRIBUTION WIDTH 13.3 % (11.7-14.4)
[2022-04-25 16:11] LABS: INR 1.1; PROTHROMBIN TIME 14.4 seconds (11.9-14.5)
[2022-04-25 16:12] LABS: PARTIAL THROMBOPLASTIN TIME 43.2 seconds (23.8-35.5)
[2022-04-25 16:18] LABS: ALBUMIN 4.4 g/dL (3.5-5.0); ALBUMIN/GLOBULIN RATIO 1.2 (0.8-2.0); ANION GAP 15.5 mmol/L (8-16); CALCIUM 9.5 mg/dL (8.4-10.2); CREATININE, SERUM 0.99 mg/dL (0.72-1.25); MAGNESIUM 1.8 MG/DL (1.3-2.1); POTASSIUM 4.5 mmol/L (3.5-5.1)
[2022-04-25 16:25] LABS: CREATINE KINASE MB 3.9 ng/mL (0-5.0)
[2022-04-25] MEDS ORDERED: ONDANSETRON HCL INJ 2MG/ML 2ML 2 MG/ML VIAL IV PRN (18:00)
[2022-04-25] MEDS: METOPROLOL TARTRATE 25 MG TAB PO SCH (18:30)
[2022-04-25] MEDS: FAMOTIDINE 20 MG/2 ML VIAL IV SCH (18:30)
[2022-04-25 21:00] VITALS: BP 149/83
[2022-04-25 21:42] VITALS: BP 160/81
[2022-04-25] MEDS: METHYLPREDNISOLONE SOD SUCC 125 MG/2ML VIAL IV SCH (22:17)
[2022-04-25] MEDS ORDERED: DICYCLOMINE HCL20 MG PO (22:43)
[2022-04-25] MEDS ORDERED: HYDROXYZINE HCL25 MG PO (22:43)
[2022-04-25] MEDS ORDERED: MUCINEX DM ER1 EACH PO (22:53)
[2022-04-25] MEDS ORDERED: BENADRYL25 M1 PO (22:53)
[2022-04-25] MEDS ORDERED: MELATONIN3 MG PO (22:53)
[2022-04-25] MEDS ORDERED: FLONASE ALLERG9.9 ML INH (22:53)
[2022-04-25] MEDS ORDERED: MELATONIN 5 MG TABLET PO PRN (23:00)
[2022-04-25] MEDS: HYDROXYZINE HCL 25 MG TAB PO PRN (23:12)
[2022-04-26] VITALS (8 sets, daily range): BP systolic 139–160; BP diastolic 79–92
[2022-04-26] MEDS: METHYLPREDNISOLONE SOD SUCC 125 MG/2ML VIAL IV SCH (05:01)
[2022-04-26] MEDS: METOPROLOL TARTRATE 25 MG TAB PO SCH ×2 (05:01→17:10)
[2022-04-26] MEDS: FAMOTIDINE 20 MG/2 ML VIAL IV SCH ×2 (05:02→17:10)
[2022-04-26 05:37] LABS: BASOPHILS % 0.1 % (0.0-1.0); HEMATOCRIT 39.1 % (38.2-49.6); HEMOGLOBIN 13.5 g/dL (14.0-18.0); LYMPHOCYTES # (AUTO) 0.3 (1.0-3.2); LYMPHOCYTES % 3.6 % (18.0-39.1); MEAN CORPUSCULAR HGB CONC 34.5 g/dL (31-35); MEAN CORPUSCULAR VOLUME 89.7 fL (81-99); MONOCYTES # (AUTO) 0.2 (0.2-0.8); MONOCYTES % 2.3 % (4.4-11.3); NEUTROPHILS # (AUTO) 6.6 (2.1-6.9); NEUTROPHILS % 93.4 % (38.7-80.0); PLATELET COUNT 159 x10e3/uL (140-360); RED BLOOD COUNT 4.36 x10e6/uL (4.3-5.7); RED CELL DISTRIBUTION WIDTH 12.9 % (11.7-14.4)
[2022-04-26 06:00] LABS: ALBUMIN 3.5 g/dL (3.5-5.0); ALBUMIN/GLOBULIN RATIO 1.1 (0.8-2.0); ANION GAP 12.3 mmol/L (8-16); CALCIUM 9.4 mg/dL (8.4-10.2); CHOL/HDL RATIO 1.7 (3.9-4.7); CREATININE, SERUM 0.74 mg/dL (0.72-1.25); POTASSIUM 4.3 mmol/L (3.5-5.1)
[2022-04-26 06:28] LABS: CREATINE KINASE MB 3.4 ng/mL (0-5.0)
[2022-04-26] MEDS: APIXAB 2.5 MG TABLET PO SCH ×2 (09:43→17:09)
[2022-04-26] MEDS: LORATADINE 10 MG TAB PO SCH (09:44)
[2022-04-26] MEDS ORDERED: SODIUM CHLORIDE 0.9% 500ML 500 ML ONE (10:00)
[2022-04-26] MEDS ORDERED: ACETAMINOPHEN 325 MG TAB PO PRN (14:00)
[2022-04-26] MEDS: METHYLPREDNISOLONE SOD SUCC 40 MG/ML VIAL 1ML IV SCH (17:10)
[2022-04-26] MEDS: GUAIFENESIN 200 MG/10 ML UDC PO PRN (17:10)
[2022-04-26] MEDS: FLUTICASONE PROPIONATE NASAL SPRAY NS SCH (17:10)
[2022-04-26] MEDS: ATORVASTATIN 20 MG TAB PO SCH (21:00)
[2022-04-26] MEDS: TAMSULOSIN HCL 0.4 MG CAP PO SCH (21:00)
[2022-04-26] MEDS: HYDROXYZINE HCL 25 MG TAB PO PRN (21:49)
[2022-04-27] VITALS (8 sets, daily range): BP systolic 119–155; BP diastolic 75–93
[2022-04-27] MEDS: GUAIFENESIN 200 MG/10 ML UDC PO PRN ×3 (00:07→18:24)
[2022-04-27] MEDS: FAMOTIDINE 20 MG/2 ML VIAL IV SCH ×2 (06:31→18:08)
[2022-04-27] MEDS: METHYLPREDNISOLONE SOD SUCC 40 MG/ML VIAL 1ML IV SCH ×2 (06:32→18:08)
[2022-04-27] MEDS: METOPROLOL TARTRATE 25 MG TAB PO SCH ×2 (06:32→18:07)
[2022-04-27] MEDS: LORATADINE 10 MG TAB PO SCH (08:54)
[2022-04-27] MEDS: APIXAB 2.5 MG TABLET PO SCH ×2 (08:54→18:07)
[2022-04-27] MEDS: FLUTICASONE PROPIONATE NASAL SPRAY NS SCH ×2 (08:54→18:06)
[2022-04-27] MEDS ORDERED: ASPIRIN 81 MG CHEW TAB PO SCH (09:00)
[2022-04-27] MEDS: HYDROXYZINE HCL 25 MG TAB PO PRN (20:24)
[2022-04-27] MEDS: TAMSULOSIN HCL 0.4 MG CAP PO SCH (20:24)
[2022-04-27] MEDS: ATORVASTATIN 20 MG TAB PO SCH (20:24)
[2022-04-28] VITALS (8 sets, daily range): BP systolic 106–142; BP diastolic 61–89
[2022-04-28] MEDS: FAMOTIDINE 20 MG/2 ML VIAL IV SCH (05:15)
[2022-04-28] MEDS: METOPROLOL TARTRATE 25 MG TAB PO SCH ×2 (05:15→17:41)
[2022-04-28] MEDS: METHYLPREDNISOLONE SOD SUCC 40 MG/ML VIAL 1ML IV SCH ×2 (05:16→17:41)
[2022-04-28 06:20] LABS: BASOPHILS % 0.1 % (0.0-1.0); HEMOGLOBIN 13.6 g/dL (14.0-18.0); LYMPHOCYTES # (AUTO) 0.4 (1.0-3.2); LYMPHOCYTES % 3.8 % (18.0-39.1); MEAN CORPUSCULAR HEMOGLOBIN 33.7 pg (28-32); MEAN CORPUSCULAR HGB CONC 35.8 g/dL (31-35); MEAN CORPUSCULAR VOLUME 94.1 fL (81-99); MONOCYTES # (AUTO) 0.6 (0.2-0.8); MONOCYTES % 6.6 % (4.4-11.3); NEUTROPHILS # (AUTO) 8.7 (2.1-6.9); NEUTROPHILS % 89.1 % (38.7-80.0); PLATELET COUNT 141 x10e3/uL (140-360); RED BLOOD COUNT 4.04 x10e6/uL (4.3-5.7); RED CELL DISTRIBUTION WIDTH 14.6 % (11.7-14.4)
[2022-04-28 06:46] LABS: ANION GAP 12.5 mmol/L (8-16); CALCIUM 9.5 mg/dL (8.4-10.2); CREATININE, SERUM 0.81 mg/dL (0.72-1.25); POTASSIUM 4.5 mmol/L (3.5-5.1)
[2022-04-28] MEDS: FLUTICASONE PROPIONATE NASAL SPRAY NS SCH ×2 (09:00→17:42)
[2022-04-28] MEDS: APIXAB 2.5 MG TABLET PO SCH ×2 (09:51→17:41)
[2022-04-28] MEDS: LORATADINE 10 MG TAB PO SCH (09:51)
[2022-04-28] MEDS ORDERED: ONDANSETRON HCL 4 MG ORAL DISINTEGRATING TAB PO PRN (10:45)
[2022-04-28] MEDS: FAMOTIDINE 20 MG TAB PO SCH (17:41)
[2022-04-28] MEDS: ATORVASTATIN 20 MG TAB PO SCH (21:02)
[2022-04-28] MEDS: TAMSULOSIN HCL 0.4 MG CAP PO SCH (21:02)
[2022-04-28] MEDS: HYDROXYZINE HCL 25 MG TAB PO PRN (21:05)
[2022-04-28] MEDS: GUAIFENESIN 200 MG/10 ML UDC PO PRN (23:07)
[2022-04-29] VITALS (8 sets, daily range): BP systolic 131–159; BP diastolic 75–97
[2022-04-29] MEDS: FAMOTIDINE 20 MG TAB PO SCH ×2 (05:04→19:39)
[2022-04-29] MEDS: METOPROLOL TARTRATE 25 MG TAB PO SCH ×2 (05:05→17:17)
[2022-04-29] MEDS: METHYLPREDNISOLONE SOD SUCC 40 MG/ML VIAL 1ML IV SCH ×2 (05:59→19:39)
[2022-04-29] MEDS: GUAIFENESIN 200 MG/10 ML UDC PO PRN ×3 (05:59→23:06)
[2022-04-29] MEDS: IPRATROPIUM BROMIDE 0.02% 2.5 ML NEB NEB PRN ×3 (08:00→20:05)
[2022-04-29] MEDS: LEVALBUTEROL HCL SOLN NEBU 0.63 MG/3 ML NEB INH PRN ×3 (08:00→20:05)
[2022-04-29] MEDS: APIXAB 2.5 MG TABLET PO SCH ×2 (10:30→17:16)
[2022-04-29] MEDS: LORATADINE 10 MG TAB PO SCH (10:30)
[2022-04-29] MEDS: AZITHROMYCIN 250 MG TAB PO SCH (10:30)
[2022-04-29] MEDS: FLUTICASONE PROPIONATE NASAL SPRAY NS SCH ×2 (10:30→17:17)
[2022-04-29] MEDS: ACETYLCYSTEINE 20% INHAL SOLN 30 ML VIAL INH SCH (19:00)
[2022-04-29] MEDS: ATORVASTATIN 20 MG TAB PO SCH (20:51)
[2022-04-29] MEDS: TAMSULOSIN HCL 0.4 MG CAP PO SCH (20:51)
[2022-04-29] MEDS: HYDROXYZINE HCL 25 MG TAB PO PRN (22:23)
[2022-04-30] VITALS: BP 136/85
[2022-04-30 04:00] VITALS: BP 137/89
[2022-04-30] MEDS: METOPROLOL TARTRATE 25 MG TAB PO SCH (06:27)
[2022-04-30] MEDS: FAMOTIDINE 20 MG TAB PO SCH (06:27)
[2022-04-30] MEDS: METHYLPREDNISOLONE SOD SUCC 40 MG/ML VIAL 1ML IV SCH (06:28)
[2022-04-30 06:33] LABS: BASOPHILS % 0.1 % (0.0-1.0); HEMATOCRIT 39.2 % (38.2-49.6); HEMOGLOBIN 13.4 g/dL (14.0-18.0); LYMPHOCYTES # (AUTO) 0.4 (1.0-3.2); LYMPHOCYTES % 5.3 % (18.0-39.1); MEAN CORPUSCULAR HGB CONC 34.2 g/dL (31-35); MEAN CORPUSCULAR VOLUME 90.7 fL (81-99); MONOCYTES # (AUTO) 0.7 (0.2-0.8); MONOCYTES % 9.4 % (4.4-11.3); NEUTROPHILS # (AUTO) 5.9 (2.1-6.9); NEUTROPHILS % 84.6 % (38.7-80.0); PLATELET COUNT 154 x10e3/uL (140-360); RED BLOOD COUNT 4.32 x10e6/uL (4.3-5.7)
[2022-04-30] MEDS: ACETYLCYSTEINE 20% INHAL SOLN 30 ML VIAL INH SCH (06:35)
[2022-04-30 07:05] LABS: ALBUMIN 3.2 g/dL (3.5-5.0); ALBUMIN/GLOBULIN RATIO 1.3 (0.8-2.0); ANION GAP 11.8 mmol/L (8-16); CALCIUM 8.7 mg/dL (8.4-10.2); CREATININE, SERUM 0.97 mg/dL (0.72-1.25); PHOSPHORUS 4.1 MG/DL (2.3-4.7); POTASSIUM 4.8 mmol/L (3.5-5.1)
[2022-04-30 08:24] VITALS: BP 137/89
[2022-04-30 09:00] VITALS: BP 137/89
[2022-04-30 09:04] VITALS: BP 149/88
[2022-04-30] MEDS: APIXAB 2.5 MG TABLET PO SCH (10:16)
[2022-04-30] MEDS: AZITHROMYCIN 250 MG TAB PO SCH (10:16)
[2022-04-30] MEDS: FLUTICASONE PROPIONATE NASAL SPRAY NS SCH (10:16)
[2022-04-30] MEDS: LORATADINE 10 MG TAB PO SCH (10:16)
[2022-04-30] MEDS ORDERED: DIPHENHYDRAMINE HCL 25 MG CAP PO PRN (11:30)
[2022-04-30] MEDS ORDERED: ONDANSETRON ODT4 MG PO (11:41)
[2022-04-30] MEDS ORDERED: PREDNISONE5 MG PO (11:41)
[2022-04-30] MEDS ORDERED: XOPENEX0.63 MG/3 INH (11:41)
[2022-04-30] MEDS ORDERED: LOPRESSOR25 MG PO (11:41)
[2022-04-30] MEDS ORDERED: GUAIFENESI100 MG/5 M PO (11:41)
[2022-04-30] MEDS ORDERED: AZITHROMYCIN250 MG PO (11:41)
[2022-04-30] MEDS ORDERED: GUAIFENESIN 600MG/DEXTROMETHORPHAN 30MG TABSR PO SCH (12:00)
[2022-04-30 12:16] VITALS: BP 140/86
[2022-04-30] MEDS ORDERED: DICYCLOMINE HCL 20 MG TAB PO SCH (15:00)
[2022-04-30] MEDS ORDERED: LORAZEPAM 1 MG TAB PO PRN (21:00)
[2022-05-01] MEDS ORDERED: UMECLIDINIUM BROMIDE 62.5 MCG INH SCH (06:00)
[2022-05-01] MEDS ORDERED: PREDNISONE 20 MG TAB PO SCH (09:00)
[2022-05-01] MEDS ORDERED: METOPROLOL SUCCINATE 25 MG TAB XL PO SCH (09:00)
== END 2022-04-30 14:05 | disposition home or self-care (01) | DRG 190 ==
LOC: ER 15:33 → ERHOLD 18:15 → MED/SURG2 21:12
PROVIDERS: ADMIT Internal Medicine; ATTEND Internal Medicine
DX: J44.1 Chronic obstructive pulmonary disease with (acute) exacerbation (principal); I50.33 Acute on chronic diastolic (congestive) heart failure; E22.2 Syndrome of inappropriate secretion of antidiuretic hormone; I11.0 Hypertensive heart disease with heart failure; N40.0 Benign prostatic hyperplasia without lower urinary tract symptoms; Z79.01 Long term (current) use of anticoagulants; J44.9 Chronic obstructive pulmonary disease, unspecified; Z79.899 Other long term (current) drug therapy; I48.0 Paroxysmal atrial fibrillation; J40 Bronchitis, not specified as acute or chronic
CPT/HCPCS: 36415; 71045; 80048; 80053; 80061; 82550; 82553; 83605; 83735; 83880; 84100; 84484; 85025; 85610; 85730; 87040; 87070; 87205; 93005; 94799; 99252; 99284; J0456; J0696; J2920; J2930; J3410; J7040; J7050

== ENCOUNTER 2022-08-08 16:26 | Emergency (ER) | payer OTHER ==
[~2022-08-08] VITALS: Ht 167.6 cm; Wt 61.2 kg
[~2022-08-08 16:26] MED LIST changes: +AZITHROMYCIN250 MG PO; +BENADRYL25 M1 PO; +DICYCLOMINE HCL20 MG PO; +FLONASE ALLERG9.9 ML INH; +GUAIFENESI100 MG/5 M PO; +HYDROXYZINE HCL25 MG PO; +LOPRESSOR25 MG PO; +MELATONIN3 MG PO; +MUCINEX DM ER1 EACH PO; +ONDANSETRON ODT4 MG PO; +PREDNISONE5 MG PO; +XOPENEX0.63 MG/3 INH
[2022-08-08] MEDS ORDERED: ALBUTEROL/IPRATROPIUM 3 ML NEB NEB ONE (17:15)
[2022-08-08] MEDS ORDERED: DEXAMETHASONE SOD PHOS 10 MG/1 ML VIAL IV ONE (17:15)
[2022-08-08 17:22] LABS: BASOPHILS % 0.6 % (0.0-1.0); EOSINOPHILS % 1.1 % (0.0-6.0); HEMATOCRIT 39.2 % (38.2-49.6); HEMOGLOBIN 13.5 g/dL (14.0-18.0); LYMPHOCYTES # (AUTO) 0.5 (1.0-3.2); LYMPHOCYTES % 13.5 % (18.0-39.1); MEAN CORPUSCULAR HEMOGLOBIN 31.5 pg (28-32); MEAN CORPUSCULAR HGB CONC 34.4 g/dL (31-35); MEAN CORPUSCULAR VOLUME 91.6 fL (81-99); MONOCYTES # (AUTO) 0.4 (0.2-0.8); MONOCYTES % 11.8 % (4.4-11.3); NEUTROPHILS # (AUTO) 2.6 (2.1-6.9); NEUTROPHILS % 72.7 % (38.7-80.0); PLATELET COUNT 125 x10e3/uL (140-360); RED BLOOD COUNT 4.28 x10e6/uL (4.3-5.7); RED CELL DISTRIBUTION WIDTH 12.5 % (11.7-14.4)
[2022-08-08 17:44] LABS: ALBUMIN 3.9 g/dL (3.5-5.0); ALBUMIN/GLOBULIN RATIO 1.3 (0.8-2.0); ANION GAP 12.9 mmol/L (8-16); CALCIUM 9.3 mg/dL (8.4-10.2); CREATININE, SERUM 0.87 mg/dL (0.72-1.25); POTASSIUM 4.9 mmol/L (3.5-5.1)
[2022-08-08] MEDS ORDERED: PREDNISONE50 MG PO (18:33)
[2022-08-08] MEDS ORDERED: DOXYCYCLINE HY100 MG PO (18:33)
[2022-08-08] MEDS ORDERED: BENZONATATE200 MG PO (18:33)
[2022-08-08 19:00] VITALS: BP 150/81; PULSE 101; RESP 20; TEMP 97.7; O2SAT 96
== END 2022-08-08 18:58 | disposition home or self-care (01) ==
LOC: ER 16:33
DX: R05.9 Cough, unspecified (principal); J44.0 Chronic obstructive pulmonary disease with (acute) lower respiratory infection; I10 Essential (primary) hypertension; I50.9 Heart failure, unspecified; I48.91 Unspecified atrial fibrillation; F41.9 Anxiety disorder, unspecified
CPT/HCPCS: 36415; 71045; 80053; 82550; 82553; 84484; 85025; 87400; 93005; 99284; U0002

== ENCOUNTER 2022-08-11 16:04 | Inpatient (IN) | payer OTHER ==
[~2022-08-11] VITALS: Ht 172.7 cm; Wt 60.4 kg
[2022-08-11] VITALS (11 sets, daily range): BP systolic 128–161; BP diastolic 69–96; PULSE 74–101; RESP 17–26; TEMP 97.8; O2SAT 93–96
[~2022-08-11 16:04] MED LIST changes: +BENZONATATE200 MG PO; +DOXYCYCLINE HY100 MG PO; +PREDNISONE50 MG PO
[2022-08-11] MEDS ORDERED: ALBUTEROL/IPRATROPIUM 3 ML NEB NEB ONE (17:00)
[2022-08-11 17:17] LABS: BASOPHILS % 0.2 % (0.0-1.0); EOSINOPHILS # (AUTO) 0.1 (0.0-0.4); EOSINOPHILS % 0.9 % (0.0-6.0); HEMATOCRIT 36.7 % (38.2-49.6); HEMOGLOBIN 12.9 g/dL (14.0-18.0); LYMPHOCYTES # (AUTO) 0.5 (1.0-3.2); LYMPHOCYTES % 8.3 % (18.0-39.1); MEAN CORPUSCULAR HEMOGLOBIN 31.3 pg (28-32); MEAN CORPUSCULAR HGB CONC 35.1 g/dL (31-35); MEAN CORPUSCULAR VOLUME 89.1 fL (81-99); MONOCYTES # (AUTO) 0.6 (0.2-0.8); MONOCYTES % 9.8 % (4.4-11.3); NEUTROPHILS # (AUTO) 5.3 (2.1-6.9); NEUTROPHILS % 80.5 % (38.7-80.0); PLATELET COUNT 179 x10e3/uL (140-360); RED BLOOD COUNT 4.12 x10e6/uL (4.3-5.7); RED CELL DISTRIBUTION WIDTH 11.9 % (11.7-14.4)
[2022-08-11 17:21] LABS: CLARITY,URINE CLEAR (CLEAR); COLOR,URINE YELLOW (YELLOW); KETONES,URINE TRACE (NEGATIVE); LEUKOCYTE ESTERASE ,URINE NEGATIVE (NEGATIVE); NITRITE,URINE NEGATIVE (NEGATIVE); PROTEIN,URINE DIPSTICK 1+ (NEGATIVE); URINE UROBILINOGEN 0.2 mg/dL (0.2 - 1)
[2022-08-11 17:34] LABS: ALBUMIN 3.9 g/dL (3.5-5.0); ALBUMIN/GLOBULIN RATIO 1.5 (0.8-2.0); ANION GAP 14.6 mmol/L (8-16); CALCIUM 8.8 mg/dL (8.4-10.2); CREATININE, SERUM 0.82 mg/dL (0.72-1.25); POTASSIUM 4.6 mmol/L (3.5-5.1); RBC,URINE 0-5 /HPF (0-5); WBC,URINE (MAN) 0-5 /HPF (0-5)
[2022-08-11] MEDS ORDERED: METOPROLOL TARTRATE 25 MG TAB PO SCH (19:20)
[2022-08-11] MEDS ORDERED: HYDRALAZINE HCL 20 MG/ML VIAL IV PRN ×2 (19:45→21:15)
[2022-08-11] MEDS ORDERED: BENZONATATE 100 MG CAP PO PRN (19:45)
[2022-08-11] MEDS ORDERED: METHYLPREDNISOLONE SOD SUCC 125 MG/2ML VIAL IV ONE (20:00)
[2022-08-11] MEDS: ATORVASTATIN 20 MG TAB PO SCH (20:18)
[2022-08-11] MEDS: LORAZEPAM 0.5 MG TAB PO PRN (20:18)
[2022-08-11] MEDS: TAMSULOSIN HCL 0.4 MG CAP PO SCH (20:19)
[2022-08-11] MEDS ORDERED: DEXTROSE 50% SYRINGE 50 ML IV PRN (21:15)
[2022-08-11] MEDS ORDERED: DIPHENHYDRAMINE HCL 25 MG CAP PO PRN (21:15)
[2022-08-11] MEDS ORDERED: POTASSIUM CHLORIDE 20 MEQ TAB CR PO PRN (21:15)
[2022-08-11] MEDS ORDERED: SIMETHICONE 80 MG CHEW PO PRN (21:15)
[2022-08-11] MEDS ORDERED: ACETAMINOPHEN 325 MG TAB PO PRN (21:15)
[2022-08-11] MEDS ORDERED: DOCUSATE SODIUM 100 MG CAP PO PRN (21:15)
[2022-08-11] MEDS ORDERED: ALBUTEROL SULF 0.083% NEB SOLN 3 ML NEB NEB PRN (21:15)
[2022-08-11] MEDS ORDERED: SODIUM CHLORIDE 0.9% 1000ML 1,000 ML IV SCH (21:15)
[2022-08-11] MEDS ORDERED: LIDOCAINE 4% PATCH TP PRN (21:15)
[2022-08-11] MEDS ORDERED: ONDANSETRON HCL INJ 2MG/ML 2ML 2 MG/ML VIAL IV PRN (21:15)
[2022-08-11] MEDS ORDERED: MELATONIN 5 MG TABLET PO PRN (21:15)
[2022-08-11] MEDS ORDERED: ALBUTEROL/IPRATROPIUM 3 ML NEB NEB PRN (21:15)
[2022-08-11 22:11] LABS: THYROID STIMULATING HORMONE 1.529 uIU/mL (0.350-4.940)
[2022-08-12] VITALS (24 sets, daily range): BP systolic 90–182; BP diastolic 49–166; PULSE 51–111; RESP 16–27; TEMP 97.3–97.9; O2SAT 88–97
[2022-08-12] MEDS: LEVALBUTEROL HCL SOLN NEBU 0.63 MG/3 ML NEB INH PRN ×3 (00:30→19:20)
[2022-08-12 07:08] LABS: BASOPHILS % 0.2 % (0.0-1.0); EOSINOPHILS % 0.2 % (0.0-6.0); HEMATOCRIT 38.8 % (38.2-49.6); HEMOGLOBIN 13.6 g/dL (14.0-18.0); LYMPHOCYTES # (AUTO) 0.3 (1.0-3.2); MEAN CORPUSCULAR HEMOGLOBIN 31.6 pg (28-32); MEAN CORPUSCULAR HGB CONC 35.1 g/dL (31-35); MONOCYTES # (AUTO) 0.2 (0.2-0.8); MONOCYTES % 4.4 % (4.4-11.3); NEUTROPHILS # (AUTO) 4.7 (2.1-6.9); NEUTROPHILS % 89.8 % (38.7-80.0); PLATELET COUNT 177 x10e3/uL (140-360); RED BLOOD COUNT 4.31 x10e6/uL (4.3-5.7); RED CELL DISTRIBUTION WIDTH 11.5 % (11.7-14.4)
[2022-08-12 07:27] LABS: ANION GAP 12.6 mmol/L (8-16); CALCIUM 8.8 mg/dL (8.4-10.2); CREATININE, SERUM 0.78 mg/dL (0.72-1.25); POTASSIUM 4.6 mmol/L (3.5-5.1)
[2022-08-12] MEDS ORDERED: METHYLPREDNISOLONE SOD SUCC 125 MG/2ML VIAL IV ONE (08:30)
[2022-08-12] MEDS: APIXAB 2.5 MG TABLET PO SCH ×2 (10:17→17:48)
[2022-08-12] MEDS: METOPROLOL TARTRATE 25 MG TAB PO SCH ×2 (10:18→17:49)
[2022-08-12] MEDS: PANTOPRAZOLE SOD 40 MG TABEC PO SCH (10:18)
[2022-08-12] MEDS ORDERED: DEXAMETHASONE SOD PHOS INJ 4 MG/ML SDV IV ONE (10:30)
[2022-08-12] MEDS: LORATADINE 10 MG TAB PO SCH (13:12)
[2022-08-12] MEDS: FLUTICASONE PROPIONATE NASAL SPRAY NS SCH (13:12)
[2022-08-12] MEDS: IPRATROPIUM BROMIDE 0.02% 2.5 ML NEB NEB PRN ×2 (15:23→19:20)
[2022-08-12] MEDS: LACTOBACILLUS ACIDOPHILUS CAPSULE PO SCH (17:48)
[2022-08-12] MEDS: SODIUM CHLORIDE 3% 100 ML IV ONE ×2 (19:50→22:20)
[2022-08-12] MEDS: TAMSULOSIN HCL 0.4 MG CAP PO SCH (20:11)
[2022-08-12] MEDS: ATORVASTATIN 20 MG TAB PO SCH (20:11)
[2022-08-12] MEDS: LORAZEPAM 0.5 MG TAB PO PRN (20:32)
[2022-08-13] VITALS (34 sets, daily range): BP systolic 103–177; BP diastolic 52–133; PULSE 77–121; RESP 15–38; TEMP 97.6–98.2; O2SAT 90–99
[2022-08-13 05:38] LABS: BASOPHILS % 0.1 % (0.0-1.0); EOSINOPHILS # (AUTO) 0.1 (0.0-0.4); EOSINOPHILS % 0.6 % (0.0-6.0); HEMATOCRIT 35.1 % (38.2-49.6); HEMOGLOBIN 12.5 g/dL (14.0-18.0); LYMPHOCYTES # (AUTO) 0.2 (1.0-3.2); LYMPHOCYTES % 1.8 % (18.0-39.1); MEAN CORPUSCULAR HEMOGLOBIN 31.6 pg (28-32); MEAN CORPUSCULAR HGB CONC 35.6 g/dL (31-35); MEAN CORPUSCULAR VOLUME 88.6 fL (81-99); MONOCYTES # (AUTO) 1.1 (0.2-0.8); NEUTROPHILS # (AUTO) 10.9 (2.1-6.9); PLATELET COUNT 167 x10e3/uL (140-360); RED BLOOD COUNT 3.96 x10e6/uL (4.3-5.7); RED CELL DISTRIBUTION WIDTH 11.7 % (11.7-14.4)
[2022-08-13 06:02] LABS: ALBUMIN 3.4 g/dL (3.5-5.0); ALBUMIN/GLOBULIN RATIO 1.4 (0.8-2.0); ANION GAP 9.4 mmol/L (8-16); CALCIUM 8.6 mg/dL (8.4-10.2); CREATININE, SERUM 0.76 mg/dL (0.72-1.25); POTASSIUM 4.4 mmol/L (3.5-5.1)
[2022-08-13] MEDS: LEVALBUTEROL HCL SOLN NEBU 0.63 MG/3 ML NEB INH PRN ×2 (06:57→16:55)
[2022-08-13] MEDS: PANTOPRAZOLE SOD 40 MG TABEC PO SCH (07:47)
[2022-08-13] MEDS: APIXAB 2.5 MG TABLET PO SCH ×2 (08:28→17:35)
[2022-08-13] MEDS: LORATADINE 10 MG TAB PO SCH (08:28)
[2022-08-13] MEDS: LACTOBACILLUS ACIDOPHILUS CAPSULE PO SCH ×2 (08:28→17:35)
[2022-08-13] MEDS: FLUTICASONE PROPIONATE NASAL SPRAY NS SCH (08:29)
[2022-08-13] MEDS: METOPROLOL TARTRATE 25 MG TAB PO SCH ×2 (08:29→17:37)
[2022-08-13] MEDS: LORAZEPAM 0.5 MG TAB PO PRN ×2 (10:47→22:49)
[2022-08-13 13:54] LABS: WBC,FECAL (FECAL LACTOFERRIN) NEGATIVE (NEGATIVE)
[2022-08-13] MEDS: PREDNISONE 20 MG TAB PO SCH ×2 (17:00→17:35)
[2022-08-13] MEDS: ACETYLCYSTEINE 200 MG/ML 4ML VIAL INH SCH (17:00)
[2022-08-13] MEDS ORDERED: SCOPOLAMINE 1 MG PATCH TOP SCH (17:00)
[2022-08-13] MEDS: SUCRALFATE 1 GM TAB PO SCH ×2 (17:35→21:08)
[2022-08-13] MEDS: DEXAMETHASONE SOD PHOS INJ 4 MG/ML SDV IV SCH (20:22)
[2022-08-13] MEDS: ATORVASTATIN 20 MG TAB PO SCH (21:08)
[2022-08-13] MEDS: TAMSULOSIN HCL 0.4 MG CAP PO SCH (21:08)
[2022-08-13] MEDS ORDERED: SODIUM CHLORIDE 1 GM TAB PO ONE (23:30)
[2022-08-14] VITALS (30 sets, daily range): BP systolic 100–173; BP diastolic 50–104; PULSE 35–125; RESP 16–42; TEMP 97.5–98.6; O2SAT 75–100
[2022-08-14 05:18] LABS: ANION GAP 12.9 mmol/L (8-16); CALCIUM 9.1 mg/dL (8.4-10.2); CREATININE, SERUM 0.74 mg/dL (0.72-1.25); POTASSIUM 4.9 mmol/L (3.5-5.1)
[2022-08-14] MEDS: ACETYLCYSTEINE 200 MG/ML 4ML VIAL INH SCH ×2 (06:47→19:30)
[2022-08-14] MEDS: LEVALBUTEROL HCL SOLN NEBU 0.63 MG/3 ML NEB INH PRN (06:47)
[2022-08-14] MEDS: DEXAMETHASONE SOD PHOS INJ 4 MG/ML SDV IV SCH (08:59)
[2022-08-14] MEDS: LACTOBACILLUS ACIDOPHILUS CAPSULE PO SCH ×2 (09:00→16:59)
[2022-08-14] MEDS: LORATADINE 10 MG TAB PO SCH (09:00)
[2022-08-14] MEDS: METOPROLOL TARTRATE 25 MG TAB PO SCH ×2 (09:00→16:59)
[2022-08-14] MEDS: APIXAB 2.5 MG TABLET PO SCH ×2 (09:01→16:59)
[2022-08-14] MEDS: SUCRALFATE 1 GM TAB PO SCH ×4 (09:01→20:44)
[2022-08-14] MEDS: SODIUM CHLORIDE 1 GM TAB PO SCH ×3 (09:09→20:44)
[2022-08-14] MEDS: IPRATROPIUM BROMIDE 0.02% 2.5 ML NEB NEB SCH ×4 (11:58→23:45)
[2022-08-14] MEDS: LEVALBUTEROL HCL SOLN NEBU 0.63 MG/3 ML NEB INH SCH ×4 (11:58→23:45)
[2022-08-14] MEDS ORDERED: IPRATROPIUM BROMIDE 0.02% 2.5 ML NEB NEB SCH (12:00)
[2022-08-14] MEDS ORDERED: ALBUTEROL SULF 0.083% NEB SOLN 3 ML NEB NEB PRN (12:00)
[2022-08-14] MEDS: FLUTICASONE PROPIONATE NASAL SPRAY NS SCH (13:12)
[2022-08-14] MEDS: BUDESONIDE 0.25 MG/2 ML NEB NEB SCH (13:44)
[2022-08-14] MEDS: TAMSULOSIN HCL 0.4 MG CAP PO SCH (20:44)
[2022-08-14] MEDS: ATORVASTATIN 20 MG TAB PO SCH (20:44)
[2022-08-14] MEDS ORDERED: FUROSEMIDE INJ 10 MG/ML 4 ML VIAL IV ONE (21:30)
[2022-08-14] MEDS: LORAZEPAM 0.5 MG TAB PO PRN (23:36)
[2022-08-15] VITALS (33 sets, daily range): BP systolic 109–161; BP diastolic 64–139; PULSE 36–149; RESP 12–30; TEMP 97.5–97.6; O2SAT 89–97
[2022-08-15] MEDS: IPRATROPIUM BROMIDE 0.02% 2.5 ML NEB NEB SCH ×6 (03:00→22:50)
[2022-08-15] MEDS: LEVALBUTEROL HCL SOLN NEBU 0.63 MG/3 ML NEB INH SCH ×6 (03:00→22:50)
[2022-08-15 05:08] LABS: BASOPHILS % 0.1 % (0.0-1.0); EOSINOPHILS # (AUTO) 0.3 (0.0-0.4); EOSINOPHILS % 2.4 % (0.0-6.0); HEMATOCRIT 37.8 % (38.2-49.6); HEMOGLOBIN 13.4 g/dL (14.0-18.0); LYMPHOCYTES # (AUTO) 0.3 (1.0-3.2); MEAN CORPUSCULAR HEMOGLOBIN 31.5 pg (28-32); MEAN CORPUSCULAR HGB CONC 35.4 g/dL (31-35); MEAN CORPUSCULAR VOLUME 88.7 fL (81-99); MONOCYTES # (AUTO) 1.2 (0.2-0.8); MONOCYTES % 8.6 % (4.4-11.3); NEUTROPHILS # (AUTO) 11.9 (2.1-6.9); NEUTROPHILS % 86.5 % (38.7-80.0); PLATELET COUNT 148 x10e3/uL (140-360); RED BLOOD COUNT 4.26 x10e6/uL (4.3-5.7); RED CELL DISTRIBUTION WIDTH 11.9 % (11.7-14.4)
[2022-08-15 05:26] LABS: ANION GAP 14.1 mmol/L (8-16); CALCIUM 9.3 mg/dL (8.4-10.2); CREATININE, SERUM 0.77 mg/dL (0.72-1.25); MAGNESIUM 1.7 MG/DL (1.3-2.1); POTASSIUM 4.1 mmol/L (3.5-5.1)
[2022-08-15] MEDS: BUDESONIDE 0.25 MG/2 ML NEB NEB SCH ×2 (07:06→19:45)
[2022-08-15] MEDS: ACETYLCYSTEINE 200 MG/ML 4ML VIAL INH SCH ×2 (07:06→19:30)
[2022-08-15] MEDS: SUCRALFATE 1 GM TAB PO SCH ×4 (07:29→20:29)
[2022-08-15] MEDS: APIXAB 2.5 MG TABLET PO SCH ×2 (08:22→17:20)
[2022-08-15] MEDS: SODIUM CHLORIDE 1 GM TAB PO SCH ×3 (08:22→20:29)
[2022-08-15] MEDS: DEXAMETHASONE SOD PHOS INJ 4 MG/ML SDV IV SCH (08:22)
[2022-08-15] MEDS: FLUTICASONE PROPIONATE NASAL SPRAY NS SCH (08:23)
[2022-08-15] MEDS: METOPROLOL TARTRATE 25 MG TAB PO SCH ×2 (08:23→17:20)
[2022-08-15] MEDS: LORATADINE 10 MG TAB PO SCH (08:23)
[2022-08-15] MEDS: LACTOBACILLUS ACIDOPHILUS CAPSULE PO SCH ×2 (08:23→17:20)
[2022-08-15] MEDS ORDERED: MAGNESIUM HYDROXIDE 30 ML UDC PO ONE (12:15)
[2022-08-15] MEDS ORDERED: CITRATE OF MAGNESIA 300ML BOTTLE PO ONE ×2 (12:15→19:15)
[2022-08-15] MEDS ORDERED: MAGNESIUM HYDROXIDE 30 ML UDC PO PRN (12:15)
[2022-08-15] MEDS ORDERED: SODIUM CHLORIDE 3% 100 ML IV ONE (18:40)
[2022-08-15] MEDS: ATORVASTATIN 20 MG TAB PO SCH (20:29)
[2022-08-15] MEDS: TAMSULOSIN HCL 0.4 MG CAP PO SCH (20:29)
[2022-08-15] MEDS: LORAZEPAM 0.5 MG TAB PO PRN (22:07)
[2022-08-16] VITALS (29 sets, daily range): BP systolic 113–165; BP diastolic 67–104; PULSE 51–236; RESP 17–30; TEMP 97.4–98.2; O2SAT 84–100
[2022-08-16] MEDS: LEVALBUTEROL HCL SOLN NEBU 0.63 MG/3 ML NEB INH SCH ×6 (03:10→23:00)
[2022-08-16] MEDS: IPRATROPIUM BROMIDE 0.02% 2.5 ML NEB NEB SCH ×6 (03:10→23:00)
[2022-08-16] MEDS: BENZONATATE 100 MG CAP PO PRN (04:45)
[2022-08-16 07:07] LABS: BASOPHILS % 0.1 % (0.0-1.0); EOSINOPHILS # (AUTO) 0.2 (0.0-0.4); EOSINOPHILS % 1.5 % (0.0-6.0); HEMATOCRIT 35.1 % (38.2-49.6); HEMOGLOBIN 12.3 g/dL (14.0-18.0); LYMPHOCYTES # (AUTO) 0.2 (1.0-3.2); LYMPHOCYTES % 1.6 % (18.0-39.1); MEAN CORPUSCULAR HEMOGLOBIN 31.5 pg (28-32); MEAN CORPUSCULAR VOLUME 89.8 fL (81-99); MONOCYTES # (AUTO) 1.4 (0.2-0.8); MONOCYTES % 9.8 % (4.4-11.3); NEUTROPHILS # (AUTO) 12.5 (2.1-6.9); NEUTROPHILS % 86.5 % (38.7-80.0); PLATELET COUNT 145 x10e3/uL (140-360); RED BLOOD COUNT 3.91 x10e6/uL (4.3-5.7)
[2022-08-16 07:10] LABS: ANION GAP 11.5 mmol/L (8-16); CALCIUM 8.6 mg/dL (8.4-10.2); CREATININE, SERUM 0.7 mg/dL (0.72-1.25); POTASSIUM 4.5 mmol/L (3.5-5.1)
[2022-08-16] MEDS: ACETYLCYSTEINE 200 MG/ML 4ML VIAL INH SCH (07:14)
[2022-08-16] MEDS: BUDESONIDE 0.25 MG/2 ML NEB NEB SCH ×2 (07:14→19:50)
[2022-08-16] MEDS: SUCRALFATE 1 GM TAB PO SCH ×4 (08:14→21:35)
[2022-08-16] MEDS: DEXAMETHASONE SOD PHOS INJ 4 MG/ML SDV IV SCH (08:14)
[2022-08-16] MEDS: LORATADINE 10 MG TAB PO SCH (08:15)
[2022-08-16] MEDS: LACTOBACILLUS ACIDOPHILUS CAPSULE PO SCH ×2 (08:15→16:28)
[2022-08-16] MEDS: METOPROLOL TARTRATE 25 MG TAB PO SCH ×4 (08:15→21:36)
[2022-08-16] MEDS: APIXAB 2.5 MG TABLET PO SCH ×2 (08:15→16:28)
[2022-08-16] MEDS: SODIUM CHLORIDE 1 GM TAB PO SCH ×3 (08:15→21:35)
[2022-08-16] MEDS: FLUTICASONE PROPIONATE NASAL SPRAY NS SCH (08:16)
[2022-08-16] MEDS ORDERED: DIATRIZOATE MEGL/DIATRIZOA SOD 30 ML BTL PO ONE (10:22)
[2022-08-16] MEDS: LORAZEPAM 0.5 MG TAB PO PRN ×2 (11:28→21:55)
[2022-08-16 15:34] LABS: CLARITY,URINE SL CLOUDY (CLEAR); COLOR,URINE YELLOW (YELLOW)
[2022-08-16 15:35] LABS: KETONES,URINE NEGATIVE (NEGATIVE); LEUKOCYTE ESTERASE ,URINE NEGATIVE (NEGATIVE); NITRITE,URINE NEGATIVE (NEGATIVE); PROTEIN,URINE DIPSTICK 1+ (NEGATIVE); URINE UROBILINOGEN 0.2 mg/dL (0.2 - 1)
[2022-08-16 15:48] LABS: BACTERIA,URINE RARE /HPF; EPITHELIAL CELLS,URINE RARE /LPF; RBC,URINE >50 /HPF (0-5); WBC,URINE (MAN) 0-5 /HPF (0-5)
[2022-08-16 20:35] LABS: ANION GAP 11.6 mmol/L (8-16); CALCIUM 7.6 mg/dL (8.4-10.2); CREATININE, SERUM 0.81 mg/dL (0.72-1.25); POTASSIUM 4.6 mmol/L (3.5-5.1)
[2022-08-16] MEDS: TAMSULOSIN HCL 0.4 MG CAP PO SCH (21:35)
[2022-08-16] MEDS: ATORVASTATIN 20 MG TAB PO SCH (21:36)
[2022-08-17] VITALS (44 sets, daily range): BP systolic 112–152; BP diastolic 66–99; PULSE 26–148; RESP 15–25; TEMP 98.6; O2SAT 81–100
[2022-08-17] MEDS: LEVALBUTEROL HCL SOLN NEBU 0.63 MG/3 ML NEB INH SCH ×6 (02:05→23:10)
[2022-08-17] MEDS: IPRATROPIUM BROMIDE 0.02% 2.5 ML NEB NEB SCH ×6 (02:05→23:10)
[2022-08-17] MEDS: METOPROLOL TARTRATE 25 MG TAB PO SCH ×3 (05:37→21:04)
[2022-08-17 06:58] LABS: BASOPHILS % 0.2 % (0.0-1.0); EOSINOPHILS # (AUTO) 0.1 (0.0-0.4); EOSINOPHILS % 0.8 % (0.0-6.0); HEMATOCRIT 38.2 % (38.2-49.6); HEMOGLOBIN 12.9 g/dL (14.0-18.0); LYMPHOCYTES # (AUTO) 0.3 (1.0-3.2); LYMPHOCYTES % 2.3 % (18.0-39.1); MEAN CORPUSCULAR HEMOGLOBIN 31.3 pg (28-32); MEAN CORPUSCULAR HGB CONC 33.8 g/dL (31-35); MEAN CORPUSCULAR VOLUME 92.7 fL (81-99); MONOCYTES # (AUTO) 1.2 (0.2-0.8); NEUTROPHILS # (AUTO) 10.3 (2.1-6.9); NEUTROPHILS % 85.9 % (38.7-80.0); PLATELET COUNT 154 x10e3/uL (140-360); RED BLOOD COUNT 4.12 x10e6/uL (4.3-5.7); RED CELL DISTRIBUTION WIDTH 11.9 % (11.7-14.4)
[2022-08-17 07:05] LABS: ALBUMIN 3.4 g/dL (3.5-5.0); ALBUMIN/GLOBULIN RATIO 1.3 (0.8-2.0); ANION GAP 11.9 mmol/L (8-16); CALCIUM 8.9 mg/dL (8.4-10.2); CREATININE, SERUM 0.79 mg/dL (0.72-1.25); POTASSIUM 4.9 mmol/L (3.5-5.1)
[2022-08-17] MEDS: SUCRALFATE 1 GM TAB PO SCH ×4 (07:42→20:12)
[2022-08-17] MEDS: SODIUM CHLORIDE 1 GM TAB PO SCH ×3 (08:38→20:12)
[2022-08-17] MEDS: LACTOBACILLUS ACIDOPHILUS CAPSULE PO SCH ×2 (08:38→16:40)
[2022-08-17] MEDS: DEXAMETHASONE SOD PHOS INJ 4 MG/ML SDV IV SCH (08:38)
[2022-08-17] MEDS: APIXAB 2.5 MG TABLET PO SCH ×2 (08:40→16:40)
[2022-08-17] MEDS: LORATADINE 10 MG TAB PO SCH (08:40)
[2022-08-17] MEDS: FLUTICASONE PROPIONATE NASAL SPRAY NS SCH (08:44)
[2022-08-17] MEDS: BUDESONIDE 0.25 MG/2 ML NEB NEB SCH ×2 (11:30→20:00)
[2022-08-17] MEDS: CHOLESTYRAMINE 4 GM PACKET PO SCH (14:22)
[2022-08-17] MEDS: GUAIFENESIN 200 MG/10 ML UDC PO PRN (15:46)
[2022-08-17] MEDS: ATORVASTATIN 20 MG TAB PO SCH (20:12)
[2022-08-17] MEDS: TAMSULOSIN HCL 0.4 MG CAP PO SCH (20:12)
[2022-08-17] MEDS: LORAZEPAM 0.5 MG TAB PO PRN (22:21)
[2022-08-18] VITALS (18 sets, daily range): BP systolic 116–151; BP diastolic 72–91; PULSE 88–111; RESP 16–24; TEMP 97.6–98.2; O2SAT 90–100
[2022-08-18] MEDS: LEVALBUTEROL HCL SOLN NEBU 0.63 MG/3 ML NEB INH SCH ×6 (03:00→23:25)
[2022-08-18] MEDS: IPRATROPIUM BROMIDE 0.02% 2.5 ML NEB NEB SCH ×6 (03:00→23:25)
[2022-08-18] MEDS: GUAIFENESIN 200 MG/10 ML UDC PO PRN (04:21)
[2022-08-18] MEDS: METOPROLOL TARTRATE 25 MG TAB PO SCH ×3 (05:43→21:44)
[2022-08-18] MEDS: BUDESONIDE 0.25 MG/2 ML NEB NEB SCH ×2 (07:04→19:35)
[2022-08-18] MEDS: SODIUM CHLORIDE 1 GM TAB PO SCH ×3 (08:05→20:47)
[2022-08-18] MEDS: APIXAB 2.5 MG TABLET PO SCH ×2 (08:05→18:22)
[2022-08-18] MEDS: DEXAMETHASONE SOD PHOS INJ 4 MG/ML SDV IV SCH (08:05)
[2022-08-18] MEDS: LORATADINE 10 MG TAB PO SCH (08:05)
[2022-08-18] MEDS: SUCRALFATE 1 GM TAB PO SCH ×4 (08:05→20:46)
[2022-08-18] MEDS: LACTOBACILLUS ACIDOPHILUS CAPSULE PO SCH ×2 (08:05→18:27)
[2022-08-18] MEDS: FLUTICASONE PROPIONATE NASAL SPRAY NS SCH (08:06)
[2022-08-18] MEDS: CHOLESTYRAMINE 4 GM PACKET PO SCH (09:00)
[2022-08-18 15:08] LABS: ANION GAP 11.7 mmol/L (8-16); CALCIUM 8.6 mg/dL (8.4-10.2); CREATININE, SERUM 0.89 mg/dL (0.72-1.25); POTASSIUM 4.7 mmol/L (3.5-5.1)
[2022-08-18] MEDS: ATORVASTATIN 20 MG TAB PO SCH (20:47)
[2022-08-18] MEDS: TAMSULOSIN HCL 0.4 MG CAP PO SCH (20:53)
[2022-08-18] MEDS ORDERED: LORAZEPAM 0.5 MG TAB PO PRN (21:00)
[2022-08-19] VITALS (9 sets, daily range): BP systolic 143–157; BP diastolic 80–92; PULSE 56–109; RESP 20–23; TEMP 97.2–98.9; O2SAT 95–100
[2022-08-19] MEDS: IPRATROPIUM BROMIDE 0.02% 2.5 ML NEB NEB SCH ×4 (02:50→14:30)
[2022-08-19] MEDS: LEVALBUTEROL HCL SOLN NEBU 0.63 MG/3 ML NEB INH SCH ×4 (02:50→14:30)
[2022-08-19] MEDS: GUAIFENESIN 200 MG/10 ML UDC PO PRN (03:01)
[2022-08-19] MEDS: BENZONATATE 100 MG CAP PO PRN ×2 (05:37→11:24)
[2022-08-19] MEDS: METOPROLOL TARTRATE 25 MG TAB PO SCH (05:39)
[2022-08-19] MEDS: BUDESONIDE 0.25 MG/2 ML NEB NEB SCH (06:10)
[2022-08-19] MEDS: SUCRALFATE 1 GM TAB PO SCH ×2 (07:35→11:24)
[2022-08-19] MEDS ORDERED: FINASTERIDE 5 MG TAB PO SCH (09:00)
[2022-08-19] MEDS ORDERED: PREDNISONE 10 MG TAB PO SCH (09:00)
[2022-08-19] MEDS ORDERED: AZITHROMYCIN 250 MG TAB PO SCH (09:00)
[2022-08-19] MEDS: CHOLESTYRAMINE 4 GM PACKET PO SCH (09:09)
[2022-08-19] MEDS: LORATADINE 10 MG TAB PO SCH (09:10)
[2022-08-19] MEDS: LACTOBACILLUS ACIDOPHILUS CAPSULE PO SCH (09:10)
[2022-08-19] MEDS: SODIUM CHLORIDE 1 GM TAB PO SCH (09:11)
[2022-08-19] MEDS: FLUTICASONE PROPIONATE NASAL SPRAY NS SCH (10:43)
[2022-08-19] MEDS ORDERED: ONDANSETRON HCL 4 MG ORAL DISINTEGRATING TAB PO PRN (13:00)
== END 2022-08-19 17:49 | disposition home or self-care (01) | DRG 644 ==
LOC: ER 16:12 → ERHOLD 17:54 → ICU 19:40 → MED/SURG2 08-18 09:24
PROVIDERS: ADMIT Internal Medicine; ATTEND Internal Medicine
PROC: 02HV33Z Insertion of Infusion Device into Superior Vena Cava, Percutaneous Approach (ICD-10-PCS; principal; 2022-08-12)
DX: E22.2 Syndrome of inappropriate secretion of antidiuretic hormone (principal); J96.12 Chronic respiratory failure with hypercapnia; R91.8 Other nonspecific abnormal finding of lung field; I48.0 Paroxysmal atrial fibrillation; J06.9 Acute upper respiratory infection, unspecified; I11.0 Hypertensive heart disease with heart failure; I50.9 Heart failure, unspecified; F41.9 Anxiety disorder, unspecified; F32.A Depression, unspecified; J42 Unspecified chronic bronchitis; K21.9 Gastro-esophageal reflux disease without esophagitis; N40.1 Benign prostatic hyperplasia with lower urinary tract symptoms; R33.8 Other retention of urine; J43.9 Emphysema, unspecified; R80.9 Proteinuria, unspecified; K58.9 Irritable bowel syndrome, unspecified; E83.42 Hypomagnesemia; Z20.822 Contact with and (suspected) exposure to COVID-19; Z79.899 Other long term (current) drug therapy; Z79.01 Long term (current) use of anticoagulants; Z79.82 Long term (current) use of aspirin; Z79.51 Long term (current) use of inhaled steroids; Z87.891 Personal history of nicotine dependence; Z99.81 Dependence on supplemental oxygen
CPT/HCPCS: 0223U; 36415; 36569; 71045; 71046; 71250; 72192; 74018; 74150; 80048; 80053; 81001; 82533; 82947; 83630; 83690; 83735; 83880; 83935; 83993; 84295; 84443; 84484; 84520; 85025; 87045; 87070; 87086; 87177; 87186; 87205; 87324; 87449; 93005; 94799; 96360; 99252; 99284; J0696; J1100; J1940; J2930; J7050; J7131; J7512; Q9963

== ENCOUNTER 2024-03-08 14:57 | Inpatient (IN) | payer OTHER ==
[~2024-03-08] VITALS: Ht 172.7 cm; Wt 49.9 kg
[~2024-03-08 14:57] MED LIST changes: +ACETAMINOPHEN325 M1 PO; +AIRBORNE TABLE1 EACH; +ALPHA GALACTOSIDASE; +CIPRO500 MG PO; +DILTIAZEM 24HR120 M1 PO; +FISH OIL 1,2001 EACH; +FUROSEMIDE40 MG PO; +GUAIFENESIN-DM 15 ML PO; +IPRATROPIU0.2 MG/1 M NEB; +LEVALBUTER0.63 MG/3 NEB; +LEVOFLOXACIN250 MG PO; +PREDNISONE20 MG PO; +PROBIOTIC & AC1 EACH PO; +ROYAL JELLY; +SIMETHICONE80 MG PO; +SODIUM CHLORI1000 M2 PO; +VITAMIN C1000 MG PO; +VITAMIN D310 MC1
[2024-03-08] MEDS ORDERED: LEVALBUTEROL HCL SOLN NEBU 0.63 MG/3 ML NEB ONE (15:23)
[2024-03-08 15:25] LABS: BASOPHILS % 0.2 % (0.0-1.0); EOSINOPHILS % 0.1 % (0.0-6.0); HEMATOCRIT 46.4 % (38.2-49.6); HEMOGLOBIN 14.4 g/dL (14.0-18.0); LYMPHOCYTES # (AUTO) 0.4 (1.0-3.2); LYMPHOCYTES % 2.1 % (18.0-39.1); MEAN CORPUSCULAR VOLUME 99.8 fL (81-99); MONOCYTES # (AUTO) 0.5 (0.2-0.8); NEUTROPHILS # (AUTO) 15.9 (2.1-6.9); NEUTROPHILS % 94.2 % (38.7-80.0); PLATELET COUNT 186 x10e3/uL (140-360); RED BLOOD COUNT 4.65 x10e6/uL (4.3-5.7); RED CELL DISTRIBUTION WIDTH 13.5 % (11.7-14.4); WHITE BLOOD COUNT 16.86 x10e3/uL (4.8-10.8)
[2024-03-08] MEDS ORDERED: LEVALBUTEROL HCL SOLN NEBU 1.25 MG/3 ML NEB ONE (15:28)
[2024-03-08] MEDS: METHYLPREDNISOLONE SOD SUCC 125 MG/2ML VIAL IV STA (15:32)
[2024-03-08] MEDS: ACETAMINOPHEN 1000 MG/100 ML IV STA (15:33)
[2024-03-08] MEDS: SODIUM CHLORIDE 0.9% 1000ML 1,000 ML IV STA (15:33)
[2024-03-08 15:35] LABS: INR 1.26; PROTHROMBIN TIME 16.5 seconds (11.9-14.5)
[2024-03-08 15:36] LABS: PARTIAL THROMBOPLASTIN TIME 38.2 seconds (23.8-35.5)
[2024-03-08] MEDS: DILTIAZEM HCL 5 MG/ML 5 ML VIAL IV STA (15:36)
[2024-03-08] MEDS ORDERED: SODIUM CHLORIDE 0.9% 1000ML 1,000 ML IV STA (15:42)
[2024-03-08 15:43] LABS: CORONAVIRUS COVID-19 AG NEGATIVE (NEGATIVE); INFLUENZA A AG NEGATIVE (NEGATIVE); INFLUENZA B AG NEGATIVE (NEGATIVE)
[2024-03-08] MEDS: LEVALBUTEROL HCL SOLN NEBU 1.25 MG/3 ML NEB INH ONE (15:43)
[2024-03-08] MEDS: IPRATROPIUM BROMIDE 0.02% 2.5 ML NEB NEB ONE (15:44)
[2024-03-08 15:45] VITALS: PULSE 126; RESP 19; O2SAT 95
[2024-03-08 15:45] LABS: ALBUMIN 3.7 g/dL (3.5-5.0); ALBUMIN/GLOBULIN RATIO 0.9 (0.8-2.0); BILIRUBIN,TOTAL 1.1 mg/dL (0.2-1.2); CALCIUM 9.7 mg/dL (8.4-10.2); CREATININE, SERUM 1.04 mg/dL (0.72-1.25); MAGNESIUM 1.7 MG/DL (1.3-2.1); TOTAL PROTEIN 7.7 g/dL (6.5-8.1)
[2024-03-08 15:48] LABS: B-TYPE NATRIURETIC PEPTIDE2 251.2 pg/mL (0-100)
[2024-03-08 15:50] LABS: TROPONIN I 0.014 ng/mL (0-0.300)
[2024-03-08] MEDS: DILTIAZEM HCL ER 90MG CAPSULE PO ONE (16:53)
[2024-03-08] MEDS ORDERED: ONDANSETRON HCL INJ 2MG/ML 2ML 2 MG/ML VIAL IV PRN (17:15)
[2024-03-08] MEDS: SODIUM CHLORIDE 0.9% 1000ML 1,000 ML IV ONE (18:27)
[2024-03-08 18:54] LABS: TROPONIN I 0.019 ng/mL (0-0.300)
[2024-03-08] MEDS ORDERED: POLYETHYLENE GLYCOL 3350 17 GM PACK PO PRN (19:30)
[2024-03-08 20:30] VITALS: PULSE 92; RESP 22; TEMP 98.9
[2024-03-08 20:42] VITALS: PULSE 95; RESP 24; O2SAT 95
[2024-03-08] MEDS: IPRATROPIUM BROMIDE 0.02% 2.5 ML NEB NEB SCH (20:44)
[2024-03-08] MEDS: LEVALBUTEROL HCL SOLN NEBU 0.63 MG/3 ML NEB INH SCH (20:45)
[2024-03-08 21:30] VITALS: BP 122/63; PULSE 95; RESP 22; TEMP 97.9; O2SAT 100
[2024-03-08] MEDS: HYDROXYZINE HCL 25 MG TAB PO SCH (22:36)
[2024-03-08] MEDS: METHYLPREDNISOLONE SOD SUCC 125 MG/2ML VIAL IV SCH (22:37)
[2024-03-08 22:43] VITALS: BP 123/63; PULSE 95; RESP 22; TEMP 97.9; O2SAT 100
[2024-03-08 23:00] VITALS: BP 123/63; PULSE 95; RESP 22; TEMP 97.9; O2SAT 100
[2024-03-09] VITALS (16 sets, daily range): BP systolic 110–156; BP diastolic 59–87; PULSE 58–104; RESP 18–22; TEMP 97.3–99.3; O2SAT 95–100
[2024-03-09 06:27] LABS: BASOPHILS % 0.1 % (0.0-1.0); HEMOGLOBIN 11.5 g/dL (14.0-18.0); LYMPHOCYTES # (AUTO) 0.2 (1.0-3.2); LYMPHOCYTES % 1.9 % (18.0-39.1); MEAN CORPUSCULAR HEMOGLOBIN 30.5 pg (28-32); MEAN CORPUSCULAR HGB CONC 31.1 g/dL (31-35); MEAN CORPUSCULAR VOLUME 98.1 fL (81-99); MONOCYTES # (AUTO) 0.3 (0.2-0.8); MONOCYTES % 2.5 % (4.4-11.3); NEUTROPHILS # (AUTO) 11.6 (2.1-6.9); NEUTROPHILS % 95.3 % (38.7-80.0); PLATELET COUNT 145 x10e3/uL (140-360); RED BLOOD COUNT 3.77 x10e6/uL (4.3-5.7); RED CELL DISTRIBUTION WIDTH 13.5 % (11.7-14.4); WHITE BLOOD COUNT 12.22 x10e3/uL (4.8-10.8)
[2024-03-09] MEDS: ACETAMINOPHEN 325 MG TAB PO PRN (06:41)
[2024-03-09 07:10] LABS: ALBUMIN 2.8 g/dL (3.5-5.0); ALBUMIN/GLOBULIN RATIO 0.9 (0.8-2.0); ANION GAP 11.9 mmol/L (8-16); BILIRUBIN,TOTAL 0.8 mg/dL (0.2-1.2); CALCIUM 8.9 mg/dL (8.4-10.2); CREATININE, SERUM 0.77 mg/dL (0.72-1.25); POTASSIUM 3.9 mmol/L (3.5-5.1)
[2024-03-09 07:12] LABS: CHOL/HDL RATIO 2.1 (3.9-4.7); MAGNESIUM 1.7 MG/DL (1.3-2.1); PHOSPHORUS 2.8 MG/DL (2.3-4.7)
[2024-03-09 07:39] LABS: FREE T4 (FREE THYROXINE) 1.09 ng/dL (0.8-1.8); THYROID STIMULATING HORMONE 0.426 uIU/mL (0.350-4.940)
[2024-03-09 07:45] LABS: TROPONIN I 0.048 ng/mL (0-0.300)
[2024-03-09] MEDS ORDERED: SPIRIVA18 MCG INH (07:45)
[2024-03-09] MEDS ORDERED: LEVALBUTER0.63 MG/3 INH (07:45)
[2024-03-09] MEDS: MIDODRINE HCL 5 MG TABLET PO SCH (10:37)
[2024-03-09] MEDS: DOCUSATE SODIUM 100 MG CAP PO SCH (10:37)
[2024-03-09] MEDS: DILTIAZEM HCL ER 90MG CAPSULE PO SCH (10:37)
[2024-03-09] MEDS: FAMOTIDINE 20 MG TAB PO SCH (10:37)
[2024-03-09] MEDS: APIXABAN 2.5 MG TABLET PO SCH (10:37)
[2024-03-09] MEDS: MAGNESIUM SULF 1GRAM/DEXTROSE 100 ML IV ONE (13:05)
[2024-03-09 15:52] LABS: CLARITY,URINE CLEAR (CLEAR); COLOR,URINE YELLOW (YELLOW)
[2024-03-09 15:53] LABS: BILIRUBIN,URINE NEGATIVE (NEGATIVE); GLUCOSE, URINE NEGATIVE (NEGATIVE); KETONES,URINE NEGATIVE (NEGATIVE); LEUKOCYTE ESTERASE ,URINE NEGATIVE (NEGATIVE); NITRITE,URINE NEGATIVE (NEGATIVE); PH,URINE 6 (5 - 7); PROTEIN,URINE DIPSTICK 1+ (NEGATIVE); URINE UROBILINOGEN 0.2 mg/dL (0.2 - 1)
[2024-03-09 16:04] LABS: BACTERIA,URINE FEW /HPF
[2024-03-09] MEDS: METHYLPREDNISOLONE SOD SUCC 40 MG/ML VIAL 1ML IV SCH (21:34)
[2024-03-09] MEDS: SODIUM CHLORIDE 0.9% 500ML 500 ML ONE (22:03)
[2024-03-10] VITALS (11 sets, daily range): BP systolic 108–132; BP diastolic 51–68; PULSE 56–93; RESP 18–21; TEMP 97.4–98.7; O2SAT 95–100
[2024-03-10 06:10] LABS: ANION GAP 14.9 mmol/L (8-16); CREATININE, SERUM 0.85 mg/dL (0.72-1.25); POTASSIUM 4.9 mmol/L (3.5-5.1)
[2024-03-10] MEDS: PANTOPRAZOLE SODIUM 20 MG TABLET.DR PO SCH (17:07)
[2024-03-11] VITALS (8 sets, daily range): BP systolic 142–173; BP diastolic 62–88; PULSE 65–87; RESP 18–20; TEMP 97.6–98.2; O2SAT 96–100
[2024-03-11] MEDS: SIMETHICONE 80 MG CHEW PO PRN (09:22)
[2024-03-11] MEDS ORDERED: SIMETHICONE 80 MG CHEW PO PRN (14:30)
[2024-03-11] MEDS ORDERED: DILTIAZEM ER90 MG PO (14:31)
[2024-03-11] MEDS ORDERED: ONDANSETRON ODT4 MG PO (14:31)
[2024-03-11] MEDS ORDERED: MIRALAX17 GM PO (14:31)
[2024-03-11] MEDS ORDERED: PANTOPRAZOLE SO20 MG PO (14:31)
[2024-03-11] MEDS ORDERED: SIMETHICONE80 MG PO (14:31)
[2024-03-11] MEDS ORDERED: COLACE100 M1 PO (14:31)
[2024-03-11] MEDS ORDERED: MIDODRINE HCL5 MG PO (14:31)
[2024-03-11] MEDS ORDERED: ONDANSETRON HCL 4 MG ORAL DISINTEGRATING TAB PO PRN (15:00)
[2024-03-11] MEDS ORDERED: AZITHROMYCIN250 MG PO (15:16)
[2024-03-11] MEDS ORDERED: CEFUROXIME250 MG PO (15:16)
[2024-03-11] MEDS ORDERED: MUCINEX DM ER1 EACH PO (15:32)
[2024-03-11] MEDS: SIMETHICONE 80 MG CHEW PO ONE (15:54)
[2024-03-12 19:36] LABS: OSMOLALITY,URINE 786 mOsmol/kg (.)
== END 2024-03-11 16:30 | disposition home or self-care (01) | DRG 871 ==
LOC: ER 15:33 → ERHOLD 17:19 → MED/SURG2 21:17
PROVIDERS: ADMIT Internal Medicine; ATTEND Internal Medicine
PROC: 3E0333Z Introduction of Anti-inflammatory into Peripheral Vein, Percutaneous Approach (ICD-10-PCS; principal; 2024-03-08)
PROC: 5A0935A Assistance with Respiratory Ventilation, Less than 24 Consecutive Hours, High Flow/Velocity Cannula (ICD-10-PCS; 2024-03-08)
DX: A41.9 Sepsis, unspecified organism (principal); J18.0 Bronchopneumonia, unspecified organism; J96.21 Acute and chronic respiratory failure with hypoxia; J96.22 Acute and chronic respiratory failure with hypercapnia; R64 Cachexia; I48.21 Permanent atrial fibrillation; I11.0 Hypertensive heart disease with heart failure; I50.32 Chronic diastolic (congestive) heart failure; J44.0 Chronic obstructive pulmonary disease with (acute) lower respiratory infection; J44.1 Chronic obstructive pulmonary disease with (acute) exacerbation; E87.1 Hypo-osmolality and hyponatremia; Z68.1 Body mass index [BMI] 19.9 or less, adult; Z99.81 Dependence on supplemental oxygen; E83.42 Hypomagnesemia; I35.1 Nonrheumatic aortic (valve) insufficiency; I35.0 Nonrheumatic aortic (valve) stenosis; N40.0 Benign prostatic hyperplasia without lower urinary tract symptoms; F41.9 Anxiety disorder, unspecified; F32.A Depression, unspecified; G47.00 Insomnia, unspecified; Z11.52 Encounter for screening for COVID-19; Z79.01 Long term (current) use of anticoagulants; Z79.51 Long term (current) use of inhaled steroids; Z96.0 Presence of urogenital implants; Z88.1 Allergy status to other antibiotic agents; Z87.891 Personal history of nicotine dependence
CPT/HCPCS: 36415; 71045; 80048; 80053; 80061; 81001; 82550; 83036; 83605; 83735; 83880; 83930; 83935; 84100; 84295; 84300; 84439; 84443; 84484; 85025; 85610; 85730; 87040; 87086; 93005; 94640; 94799; 99284; J0696; J2919; J3410; J3475; J7030; J7040; J7050

== ENCOUNTER 2024-04-18 15:58 | Inpatient (IN) | payer MEDICARE, OTHER ==
[2024-04-18] VITALS (7 sets, daily range): BP systolic 140; BP diastolic 68; PULSE 84–106; RESP 18–23; TEMP 98.2–98.6; O2SAT 3–98
[~2024-04-18] VITALS: Ht 172.7 cm; Wt 49.9 kg
[~2024-04-18 15:58] MED LIST changes: +CEFUROXIME250 MG PO; +COLACE100 M1 PO; +DILTIAZEM ER90 MG PO; +LEVALBUTER0.63 MG/3 INH; +MIDODRINE HCL5 MG PO; +MIRALAX17 GM PO; +PANTOPRAZOLE SO20 MG PO
[2024-04-18 16:42] LABS: BASOPHILS % 0.2 % (0.0-1.0); HEMATOCRIT 37.4 % (38.2-49.6); HEMOGLOBIN 11.8 g/dL (14.0-18.0); LYMPHOCYTES # (AUTO) 0.4 (1.0-3.2); MEAN CORPUSCULAR HEMOGLOBIN 30.9 pg (28-32); MEAN CORPUSCULAR HGB CONC 31.6 g/dL (31-35); MEAN CORPUSCULAR VOLUME 97.9 fL (81-99); MONOCYTES # (AUTO) 0.4 (0.2-0.8); MONOCYTES % 8.7 % (4.4-11.3); NEUTROPHILS # (AUTO) 3.5 (2.1-6.9); NEUTROPHILS % 82.1 % (38.7-80.0); PLATELET COUNT 119 x10e3/uL (140-360); RED BLOOD COUNT 3.82 x10e6/uL (4.3-5.7); WHITE BLOOD COUNT 4.23 x10e3/uL (4.8-10.8)
[2024-04-18] MEDS: ALBUTEROL/IPRATROPIUM 3 ML NEB NEB ONE ×3 (16:43→17:25)
[2024-04-18 16:49] LABS: ANION GAP 15.3 mmol/L (8-16); CALCIUM 9.4 mg/dL (8.4-10.2); CREATININE, SERUM 0.84 mg/dL (0.72-1.25); POTASSIUM 4.3 mmol/L (3.5-5.1)
[2024-04-18] MEDS: CEFTRIAXONE 1 GM VIAL IM ONE (17:42)
[2024-04-18] MEDS: METHYLPREDNISOLONE SOD SUCC 125 MG/2ML VIAL IV ONE (17:42)
[2024-04-18] MEDS ORDERED: ONDANSETRON HCL INJ 2MG/ML 2ML 2 MG/ML VIAL IV PRN (18:15)
[2024-04-18] MEDS ORDERED: Morphine 4mg INJECTION 4 MG/ML INJ IV PRN (18:15)
[2024-04-18 18:39] LABS: CORONAVIRUS COVID-19 AG NEGATIVE (NEGATIVE); INFLUENZA A AG POSITIVE (NEGATIVE); INFLUENZA B AG NEGATIVE (NEGATIVE)
[2024-04-18] MEDS: DILTIAZEM HCL ER 90MG CAPSULE PO ONE (19:16)
[2024-04-18] MEDS ORDERED: FAMOTIDINE 20 MG TAB PO PRN (20:45)
[2024-04-18] MEDS ORDERED: ACETAMINOPHEN 325 MG TAB PO PRN (20:45)
[2024-04-18] MEDS ORDERED: GUAIFENESIN/DEXTROMETHORPHAN LIQD 5 ML UDC PO PRN (20:45)
[2024-04-18] MEDS ORDERED: FUROSEMIDE 20 MG TAB PO PRN (20:45)
[2024-04-18] MEDS ORDERED: ONDANSETRON HCL 4 MG ORAL DISINTEGRATING TAB PO PRN (20:45)
[2024-04-18] MEDS ORDERED: LORATADINE 10 MG TAB PO PRN (20:45)
[2024-04-18] MEDS: APIXABAN 2.5 MG TABLET PO SCH (21:43)
[2024-04-18] MEDS: ATORVASTATIN 20 MG TAB PO SCH (21:43)
[2024-04-18] MEDS: MELATONIN 5 MG TABLET PO SCH (21:43)
[2024-04-18] MEDS: METHYLPREDNISOLONE SOD SUCC 125 MG/2ML VIAL IV SCH (21:44)
[2024-04-18] MEDS: HYDROXYZINE HCL 25 MG TAB PO SCH (22:13)
[2024-04-18] MEDS: ALBUTEROL/IPRATROPIUM 3 ML NEB NEB SCH (22:34)
[2024-04-19] VITALS (11 sets, daily range): BP systolic 116–157; BP diastolic 62–87; PULSE 53–111; RESP 18–23; TEMP 97.6–98; O2SAT 95–100
[2024-04-19 06:08] LABS: HEMATOCRIT 34.9 % (38.2-49.6); LYMPHOCYTES # (AUTO) 0.2 (1.0-3.2); LYMPHOCYTES % 5.6 % (18.0-39.1); MEAN CORPUSCULAR HEMOGLOBIN 30.9 pg (28-32); MEAN CORPUSCULAR HGB CONC 31.5 g/dL (31-35); MONOCYTES # (AUTO) 0.1 (0.2-0.8); MONOCYTES % 3.1 % (4.4-11.3); NEUTROPHILS # (AUTO) 2.9 (2.1-6.9); PLATELET COUNT 119 x10e3/uL (140-360); RED BLOOD COUNT 3.56 x10e6/uL (4.3-5.7); RED CELL DISTRIBUTION WIDTH 13.7 % (11.7-14.4); WHITE BLOOD COUNT 3.19 x10e3/uL (4.8-10.8)
[2024-04-19 06:38] LABS: ANION GAP 14.4 mmol/L (8-16); BILIRUBIN,TOTAL 0.4 mg/dL (0.2-1.2); CALCIUM 9.2 mg/dL (8.4-10.2); CREATININE, SERUM 0.71 mg/dL (0.72-1.25); POTASSIUM 4.4 mmol/L (3.5-5.1); TOTAL PROTEIN 5.8 g/dL (6.5-8.1)
[2024-04-19 06:39] LABS: ALBUMIN/GLOBULIN RATIO 1.1 (0.8-2.0)
[2024-04-19] MEDS: SALMETEROL XINAF/FLUTICASONE 250/50 MCG INHALER INH SCH (07:28)
[2024-04-19] MEDS: ASCORBIC ACID 500 MG TAB PO SCH (08:59)
[2024-04-19] MEDS: OSELTAMIVIR PHOSPHATE 75 MG CAP PO SCH (08:59)
[2024-04-19] MEDS ORDERED: APIXABAN 2.5 MG TABLET PO SCH (09:00)
[2024-04-19] MEDS: ACETAMINOPHEN 325 MG TAB PO PRN (21:35)
[2024-04-20] VITALS (11 sets, daily range): BP systolic 133–162; BP diastolic 76–88; PULSE 64–109; RESP 17–21; TEMP 97.3–98.2; O2SAT 97–100
[2024-04-20 06:07] LABS: HEMATOCRIT 39.1 % (38.2-49.6); HEMOGLOBIN 12.6 g/dL (14.0-18.0); LYMPHOCYTES # (AUTO) 0.3 (1.0-3.2); LYMPHOCYTES % 3.6 % (18.0-39.1); MEAN CORPUSCULAR HEMOGLOBIN 31.1 pg (28-32); MEAN CORPUSCULAR HGB CONC 32.2 g/dL (31-35); MEAN CORPUSCULAR VOLUME 96.5 fL (81-99); MONOCYTES # (AUTO) 0.3 (0.2-0.8); MONOCYTES % 4.2 % (4.4-11.3); NEUTROPHILS % 91.8 % (38.7-80.0); PLATELET COUNT 134 x10e3/uL (140-360); RED BLOOD COUNT 4.05 x10e6/uL (4.3-5.7); RED CELL DISTRIBUTION WIDTH 13.4 % (11.7-14.4)
[2024-04-20 06:31] LABS: ALBUMIN 3.3 g/dL (3.5-5.0); ANION GAP 16.1 mmol/L (8-16); BILIRUBIN,TOTAL 0.5 mg/dL (0.2-1.2); CALCIUM 9.4 mg/dL (8.4-10.2); CREATININE, SERUM 0.72 mg/dL (0.72-1.25); POTASSIUM 4.1 mmol/L (3.5-5.1); TOTAL PROTEIN 6.7 g/dL (6.5-8.1)
[2024-04-20] MEDS: DILTIAZEM HCL ER 90MG CAPSULE PO SCH (08:00)
[2024-04-20] MEDS: METHYLPREDNISOLONE SOD SUCC 40 MG/ML VIAL 1ML IV SCH (09:00)
[2024-04-21] VITALS: BP 160/65; PULSE 102; RESP 18; TEMP 97.5; O2SAT 99
[2024-04-21 04:00] VITALS: BP 121/74; PULSE 95; RESP 18; TEMP 97.2; O2SAT 97
[2024-04-21 05:31] LABS: HEMATOCRIT 38.7 % (38.2-49.6); HEMOGLOBIN 12.6 g/dL (14.0-18.0); LYMPHOCYTES # (AUTO) 0.3 (1.0-3.2); LYMPHOCYTES % 3.7 % (18.0-39.1); MEAN CORPUSCULAR HEMOGLOBIN 31.1 pg (28-32); MEAN CORPUSCULAR HGB CONC 32.6 g/dL (31-35); MEAN CORPUSCULAR VOLUME 95.6 fL (81-99); MONOCYTES # (AUTO) 0.3 (0.2-0.8); MONOCYTES % 3.6 % (4.4-11.3); NEUTROPHILS # (AUTO) 7.7 (2.1-6.9); NEUTROPHILS % 92.1 % (38.7-80.0); PLATELET COUNT 141 x10e3/uL (140-360); RED BLOOD COUNT 4.05 x10e6/uL (4.3-5.7); RED CELL DISTRIBUTION WIDTH 13.4 % (11.7-14.4); WHITE BLOOD COUNT 8.36 x10e3/uL (4.8-10.8)
[2024-04-21 06:24] LABS: ALBUMIN 3.3 g/dL (3.5-5.0); ANION GAP 13.2 mmol/L (8-16); BILIRUBIN,TOTAL 0.5 mg/dL (0.2-1.2); CALCIUM 8.8 mg/dL (8.4-10.2); CREATININE, SERUM 0.75 mg/dL (0.72-1.25); POTASSIUM 4.2 mmol/L (3.5-5.1); TOTAL PROTEIN 6.7 g/dL (6.5-8.1)
[2024-04-21 08:00] VITALS: BP 145/78; PULSE 95; RESP 20; TEMP 97.9; O2SAT 99
[2024-04-21 08:04] VITALS: PULSE 95; RESP 18; O2SAT 99
[2024-04-21 08:54] VITALS: BP 145/78; PULSE 95; RESP 18; TEMP 97.9; O2SAT 99
== END 2024-04-21 11:40 | disposition home or self-care (01) | DRG 193 ==
LOC: ER 17:00 → ERHOLD 18:13 → MED/SURG2 20:26
PROVIDERS: ADMIT Family Medicine Adult Medicine; ATTEND Family Medicine Adult Medicine
DX: J10.1 Influenza due to other identified influenza virus with other respiratory manifestations (principal); J96.21 Acute and chronic respiratory failure with hypoxia; E46 Unspecified protein-calorie malnutrition; J44.1 Chronic obstructive pulmonary disease with (acute) exacerbation; J44.0 Chronic obstructive pulmonary disease with (acute) lower respiratory infection; D61.818 Other pancytopenia; Z68.1 Body mass index [BMI] 19.9 or less, adult; I48.20 Chronic atrial fibrillation, unspecified; I11.0 Hypertensive heart disease with heart failure; I50.9 Heart failure, unspecified; J43.9 Emphysema, unspecified; R74.8 Abnormal levels of other serum enzymes; N40.0 Benign prostatic hyperplasia without lower urinary tract symptoms; Z11.52 Encounter for screening for COVID-19; Z79.01 Long term (current) use of anticoagulants; Z79.51 Long term (current) use of inhaled steroids; Z99.81 Dependence on supplemental oxygen; Z88.1 Allergy status to other antibiotic agents
CPT/HCPCS: 36415; 71045; 80048; 80053; 83735; 83880; 85025; 93005; 94640; 94799; 99252; 99284; J0696; J2919; J3410